=== PATIENT | female | born 1975 | race Caucasian/White ===

== ENCOUNTER → 2016-10-21 | Outpatient (CLI) | payer MEDICARE, MEDICAID ==
[~2016-10-21] MED LIST: ATOR1TAB19 PO; CHEL50TA PO; CICL0.7739 TOP; CLEO150C PO; FERR325T PO; FERR325T3 PO; FOLI1TAB2 PO; HYDR25TAB PO; LEVO100T5 PO; POTA10PO PO; VITA-130 PO; VITMTA PO; ZINC220C3 PO
== END ==
LOC: M PT 13:03
PROVIDERS: ATTEND General Practice
DX: Q05.9 Spina bifida, unspecified (principal)
CPT/HCPCS: 97161; G8978; G8979; G8980

== ENCOUNTER → 2016-10-30 | Outpatient (CLI) | payer MEDICARE, MEDICAID ==
--- NOTE | 2016-10-30 15:25 | REP ---
MRI study of the pelvis without and with IV gadolinium: History: Stage III pressure ulcer at the sacrum. Gadolinium enhancement dose: 14.2 ml of intravenous ProHance is administered. Technique: Axial, coronal, and sagittal imaging planes are utilized. T1 and T2-weighted scans are obtained with and without fat saturation. Pre and postcontrast enhanced images are included. MRI findings: There is scarring, soft tissue deficit and indentation, and some subcutaneous contrast enhancement in the soft tissues adjacent to and overlying the ischium on the left side. A large decubitus ulcer was visible on MRI study of the left hip September 14, 2005 in this location. There is no evidence of active osteomyelitis in the ischium or left hemipelvis. There is evidence of bilateral congenital hip dysplasia and pseudarthrosis. A levoconvex lumbar scoliotic curvature is seen. Sagittal images demonstrate vaginal, uterine, urinary bladder, and rectal prolapse. There is enhancement of the prolapsed vaginal and rectal soft tissues. Sagittal images demonstrate sacral kyphosis. Cortical and medullary bone signal intensity are normal in the sacrum and coccyx however. No retro sacral or presacral mass or abscess is seen. No evidence of sacral osteomyelitis. There is some retro sacral soft tissue edema. There is soft tissue edema in the retro sacral soft tissues extending over the right gluteal region as well. There is an area of granulation tissue in the skin and subcutaneous tissue dorsally overlying the coccyx. This area measures approximately 7.7 cm in medial to lateral by 5.0 cm cranial to caudal. It displays some contrast enhancement. There is contrast enhancement just distal to the tip of the coccyx as well. It is difficult to assess the signal intensity in the tip of the coccyx but I suspect some erosive change in the distal most coccygeal tip. Impression: Evidence of an old ischial decubitus on the left, improved. Granulation tissue and contrast enhancement in the dorsal retro sacral and coccygeal soft tissues. Suspect some bony erosive change implying osteomyelitis at the tip of the coccyx. No drainable fluid collection seen in the soft tissues. Soft tissue edema in the subcutaneous space. Incidental findings of uterine, bladder, vaginal and rectal prolapse as well as congenital hip dysplasia bilaterally. Scoliosis again seen. Signed by Emir Chang MD 10/30/2016 03:33 P
== END ==
LOC: M RAD 12:03
PROVIDERS: ATTEND Surgery
DX: L89.153 Pressure ulcer of sacral region, stage 3 (principal)
CPT/HCPCS: 72197; A9576

== ENCOUNTER → 2016-12-02 | Outpatient (REF) | payer MEDICARE, MEDICAID ==
[2016-12-02 15:38] LABS: ALBUMIN 3.3 GM/DL (3.2-5.2); ALBUMIN/GLOBULIN RATIO 0.75 (1.00-1.93); ALKALINE PHOSPHATASE 105 U/L (45-117); ALT/SGPT 16 U/L (12-78); ANION GAP 11 MEQ/L (8-16); AST/SGOT 9 U/L (15-37); BILIRUBIN,TOTAL 0.4 MG/DL (0.2-1.0); BLOOD UREA NITROGEN 8 MG/DL (7-18); CALCIUM LEVEL 8.9 MG/DL (8.5-10.1); CARBON DIOXIDE LEVEL 26 MEQ/L (21-32); CHLORIDE LEVEL 105 MEQ/L (98-107); CREATININE FOR GFR 0.44 MG/DL (0.55-1.02); GLOMERULAR FILTRATION RATE > 60.0 (>58); GLUCOSE, FASTING 86 MG/DL (70-105); POTASSIUM SERUM 3.9 MEQ/L (3.5-5.1); SODIUM LEVEL 142 MEQ/L (136-145); TOTAL PROTEIN 7.7 GM/DL (6.4-8.2)
[2016-12-02 15:44] LABS: BASO % 0.2 % (0.0-1.0); EOS # 0.2 K/mm3 (0.0-0.50); EOS % 1.7 % (0.0-3.0); LARGE UNSTAINED CELL # 0.1 K/mm3 (0.0-0.4); LARGE UNSTAINED CELL % 1.1 % (0.0-4.0); LYMPH # 1.7 K/mm3 (1.5-4.5); LYMPH % 17.7 % (24.0-44.0); MEAN CORPUSCULAR HEMOGLOBIN 18.3 pg (27.0-33.0); MEAN CORPUSCULAR HGB CONC 27.2 g/dl (32.0-36.5); MEAN CORPUSCULAR VOLUME 67.2 fl (80.0-96.0); MONO # 0.3 K/mm3 (0.0-0.8); MONO % 3.3 % (0.0-5.0); NEUTROPHILS # 7.1 K/mm3 (1.8-7.7); NEUTROPHILS % 75.9 % (36.0-66.0); PLATELET COUNT, AUTOMATED 517 k/mm3 (150-450); RED CELL DISTRIBUTION WIDTH 18.2 % (11.5-14.5); WHITE BLOOD COUNT 9.4 K/mm3 (4.0-10.0)
[2016-12-02 15:56] LABS: ADD MORPHOLOGY? YES
[2016-12-02 15:57] LABS: ANISOCYTOSIS 2+; HYPOCHROMASIA 3+; MICROCYTOSIS 3+
[2016-12-02 20:07] LABS: ERYTHROCYTE SEDIMENTATION RATE 73 mm/hr (0-20)
[2016-12-03 11:29] LABS: FERRITIN 15 NG/ML (8-252); PERCENT SATURATION 8.5 % (13.2-37.4); TOTAL IRON BINDING CAPACITY 386 UG/DL (250-450)
== END ==
LOC: M SFHCPLAZ 12:34
PROVIDERS: ATTEND Internal Medicine Infectious Disease
DX: M86.18 Other acute osteomyelitis, other site (principal); Q05.9 Spina bifida, unspecified; L89.154 Pressure ulcer of sacral region, stage 4; L89.323 Pressure ulcer of left buttock, stage 3; G82.21 Paraplegia, complete; L97.512 Non-pressure chronic ulcer of other part of right foot with fat layer exposed; A49.02 Methicillin resistant Staphylococcus aureus infection, unspecified site; Z79.899 Other long term (current) drug therapy
CPT/HCPCS: 36415; 80053; 82728; 83550; 85025; 85652; 86140; 87070; 87077; 87186; 87205; G0463

== ENCOUNTER 2016-12-04 13:50 | Outpatient (CLI) | payer MEDICARE, MEDICAID ==
[~2016-12-04] VITALS: Ht 137.2 cm; Wt 70.9 kg
[~2016-12-04 13:50] MED LIST changes: +CEFTAROLINE FOSAMIL 600 MG in D5W MINI-BAG PLUS 50 ML IV ONE; +SODIUM CHLORIDE 0.9% INJ 10 ML SYR IV PRN
[2016-12-04] MEDS ORDERED: SODIUM CHLORIDE 0.9% INJ 10 ML SYR IV SCH (18:00)
== END 2016-12-04 15:10 | disposition home or self-care (01) ==
LOC: M INFU 13:50
PROVIDERS: ATTEND Internal Medicine Infectious Disease
DX: M86.9 Osteomyelitis, unspecified (principal); Z88.2 Allergy status to sulfonamides; Z88.8 Allergy status to other drugs, medicaments and biological substances; Z79.899 Other long term (current) drug therapy

== ENCOUNTER → 2016-12-04 | Outpatient (CLI) | payer MEDICARE, MEDICAID ==
--- NOTE | 2016-12-04 18:23 | REP ---
SINGLE LUMEN PICC LINE INSERTION: Patient was referred for a single lumen PICC line insertion. Informed consent was obtained. Under sterile conditions and after satisfactory administration of local anesthesia, using guidance from the [facility] ultrasound device, access to the right brachial vein is obtained. Over the wire a single lumen PICC line is inserted and the tip is positioned in the superior vena cava. 0.1 minutes of fluoroscopic time utilized to confirm PICC line tip placement in the superior vena cava. Hemostasis was obtained. There are no immediate complications. Signed by Elmer Godinez MD 12/04/2016 06:33 P
== END ==
LOC: M RADPRO 10:29
PROVIDERS: ATTEND Internal Medicine Infectious Disease
DX: M86.18 Other acute osteomyelitis, other site (principal); Z88.2 Allergy status to sulfonamides

== ENCOUNTER → 2016-12-21 | Outpatient (REF) | payer MEDICARE, MEDICAID ==
[~2016-12-21] MED LIST changes: -CEFTAROLINE FOSAMIL 600 MG in D5W MINI-BAG PLUS 50 ML IV ONE; -SODIUM CHLORIDE 0.9% INJ 10 ML SYR IV PRN
[2016-12-21 16:02] LABS: MEAN CORPUSCULAR HEMOGLOBIN 19.2 pg (27.0-33.0); MEAN CORPUSCULAR HGB CONC 28.3 g/dl (32.0-36.5); MEAN CORPUSCULAR VOLUME 67.8 fl (80.0-96.0); PLATELET COUNT, AUTOMATED 382 k/mm3 (150-450); RED CELL DISTRIBUTION WIDTH 17.9 % (11.5-14.5); WHITE BLOOD COUNT 5.2 K/mm3 (4.0-10.0)
[2016-12-21 16:37] LABS: ERYTHROCYTE SEDIMENTATION RATE 98 mm/hr (0-20)
[2016-12-21 21:07] LABS: BASOPHILS 1 % (0-4); EOSINOPHILS 2 % (0-5)
[2016-12-21 21:08] LABS: ANISOCYTOSIS 1+; HYPOCHROMASIA 2+; MICROCYTOSIS 3+; OVALOCYTES 1+; POIKILOCYTOSIS 1+
== END ==
LOC: M SHH 15:37
PROVIDERS: ATTEND Internal Medicine Infectious Disease
DX: D64.9 Anemia, unspecified (principal)

== ENCOUNTER → 2016-12-28 | Outpatient (REF) | payer MEDICARE, MEDICAID ==
[2016-12-28 16:10] LABS: BASO % 0.1 % (0.0-1.0); EOS # 0.2 K/mm3 (0.0-0.50); LARGE UNSTAINED CELL # 0.1 K/mm3 (0.0-0.4); LARGE UNSTAINED CELL % 1.1 % (0.0-4.0); LYMPH # 1.4 K/mm3 (1.5-4.5); LYMPH % 21.9 % (24.0-44.0); MEAN CORPUSCULAR HEMOGLOBIN 19.4 pg (27.0-33.0); MEAN CORPUSCULAR HGB CONC 28.7 g/dl (32.0-36.5); MEAN CORPUSCULAR VOLUME 67.6 fl (80.0-96.0); MONO # 0.4 K/mm3 (0.0-0.8); NEUTROPHILS # 3.9 K/mm3 (1.8-7.7); NEUTROPHILS % 65.9 % (36.0-66.0); PLATELET COUNT, AUTOMATED 500 k/mm3 (150-450); RED CELL DISTRIBUTION WIDTH 17.3 % (11.5-14.5); WHITE BLOOD COUNT 5.9 K/mm3 (4.0-10.0)
[2016-12-28 16:16] LABS: ADD MORPHOLOGY? YES
[2016-12-28 22:37] LABS: ANISOCYTOSIS 2+; HYPOCHROMASIA 2+; MICROCYTOSIS 3+
[2016-12-28 22:53] LABS: ERYTHROCYTE SEDIMENTATION RATE 72 mm/hr (0-20)
== END ==
LOC: M LAB REF 15:48
PROVIDERS: ATTEND Internal Medicine Infectious Disease
DX: D64.9 Anemia, unspecified (principal)

== ENCOUNTER → 2017-01-04 | Outpatient (REF) | payer MEDICARE, MEDICAID ==
[2017-01-04 16:10] LABS: BASO % 0.2 % (0.0-1.0); EOS # 0.1 K/mm3 (0.0-0.50); EOS % 2.7 % (0.0-3.0); LARGE UNSTAINED CELL # 0.1 K/mm3 (0.0-0.4); LARGE UNSTAINED CELL % 1.7 % (0.0-4.0); LYMPH % 20.6 % (24.0-44.0); MEAN CORPUSCULAR HEMOGLOBIN 19.5 pg (27.0-33.0); MEAN CORPUSCULAR HGB CONC 28.9 g/dl (32.0-36.5); MEAN CORPUSCULAR VOLUME 67.4 fl (80.0-96.0); MONO # 0.3 K/mm3 (0.0-0.8); MONO % 7.1 % (0.0-5.0); NEUTROPHILS # 3.2 K/mm3 (1.8-7.7); NEUTROPHILS % 67.7 % (36.0-66.0); PLATELET COUNT, AUTOMATED 452 k/mm3 (150-450); RED CELL DISTRIBUTION WIDTH 16.8 % (11.5-14.5); WHITE BLOOD COUNT 4.7 K/mm3 (4.0-10.0)
[2017-01-04 16:43] LABS: ADD MORPHOLOGY? YES
[2017-01-04 18:30] LABS: ERYTHROCYTE SEDIMENTATION RATE 61 mm/hr (0-20)
[2017-01-04 21:50] LABS: ANISOCYTOSIS 2+; HYPOCHROMASIA 2+; MICROCYTOSIS 3+
== END ==
LOC: M SHH 15:37
PROVIDERS: ATTEND Internal Medicine Infectious Disease
DX: D64.9 Anemia, unspecified (principal)

== ENCOUNTER → 2017-01-11 | Outpatient (REF) | payer MEDICARE, MEDICAID ==
[2017-01-11 15:56] LABS: MEAN CORPUSCULAR HGB CONC 28.6 g/dl (32.0-36.5); MEAN CORPUSCULAR VOLUME 66.4 fl (80.0-96.0); PLATELET COUNT, AUTOMATED 437 k/mm3 (150-450); WHITE BLOOD COUNT 2.7 K/mm3 (4.0-10.0)
[2017-01-11 22:01] LABS: ERYTHROCYTE SEDIMENTATION RATE 63 mm/hr (0-20)
[2017-01-11 22:35] LABS: BANDS 1 % (< 11); EOSINOPHILS 6 % (0-5); MICROCYTOSIS 3+
[2017-01-11 22:36] LABS: ANISOCYTOSIS 1+; HYPOCHROMASIA 2+; OVALOCYTES 2+; POIKILOCYTOSIS 1+
[2017-01-11 22:37] LABS: POLYCHROMASIA 1+
== END ==
LOC: M SFHCPLAZ 15:30
PROVIDERS: ATTEND Internal Medicine Infectious Disease
DX: M86.18 Other acute osteomyelitis, other site (principal); D64.9 Anemia, unspecified

== ENCOUNTER → 2017-01-14 | Outpatient (REF) | payer MEDICARE, MEDICAID ==
[2017-01-14 17:05] LABS: MEAN CORPUSCULAR HEMOGLOBIN 18.9 pg (27.0-33.0); MEAN CORPUSCULAR HGB CONC 28.2 g/dl (32.0-36.5); MEAN CORPUSCULAR VOLUME 66.9 fl (80.0-96.0); PLATELET COUNT, AUTOMATED 361 k/mm3 (150-450); RED CELL DISTRIBUTION WIDTH 15.9 % (11.5-14.5); WHITE BLOOD COUNT 2.2 K/mm3 (4.0-10.0)
[2017-01-14 18:03] LABS: BANDS 2 % (< 11); BASOPHILS 1 % (0-4); EOSINOPHILS 5 % (0-5); GIANT PLATELETS 1+; HYPOCHROMASIA 2+; MICROCYTOSIS 3+; OVALOCYTES 2+; POIKILOCYTOSIS 1+
[2017-01-14 18:04] LABS: ANISOCYTOSIS 1+; POLYCHROMASIA 1+; TARGET CELLS 1+
[2017-01-14 18:07] LABS: TOXIC GRANULATION 1+
[2017-01-14 18:11] LABS: ERYTHROCYTE SEDIMENTATION RATE 65 mm/hr (0-20)
== END ==
LOC: M LAB REF 16:07
PROVIDERS: ATTEND Internal Medicine Infectious Disease
DX: D64.9 Anemia, unspecified (principal)

== ENCOUNTER → 2017-02-22 | Outpatient (REF) | payer MEDICARE, MEDICAID ==
[2017-02-22 16:11] LABS: ADD MORPHOLOGY? YES; BASO % 0.6 % (0.0-1.0); EOS # 0.2 K/mm3 (0.0-0.50); EOS % 2.8 % (0.0-3.0); LARGE UNSTAINED CELL # 0.1 K/mm3 (0.0-0.4); LARGE UNSTAINED CELL % 0.8 % (0.0-4.0); LYMPH # 1.9 K/mm3 (1.5-4.5); LYMPH % 20.3 % (24.0-44.0); MEAN CORPUSCULAR HEMOGLOBIN 18.7 pg (27.0-33.0); MEAN CORPUSCULAR HGB CONC 28.4 g/dl (32.0-36.5); MEAN CORPUSCULAR VOLUME 65.9 fl (80.0-96.0); MONO # 0.4 K/mm3 (0.0-0.8); MONO % 4.2 % (0.0-5.0); NEUTROPHILS # 6.3 K/mm3 (1.8-7.7); NEUTROPHILS % 71.3 % (36.0-66.0); PLATELET COUNT, AUTOMATED 624 k/mm3 (150-450); RED CELL DISTRIBUTION WIDTH 16.5 % (11.5-14.5); WHITE BLOOD COUNT 8.8 K/mm3 (4.0-10.0)
[2017-02-22 16:17] LABS: ANION GAP 7 MEQ/L (8-16); BLOOD UREA NITROGEN 8 MG/DL (7-18); CALCIUM LEVEL 9.2 MG/DL (8.5-10.1); CARBON DIOXIDE LEVEL 30 MEQ/L (21-32); CHLORIDE LEVEL 104 MEQ/L (98-107); CREATININE FOR GFR 0.43 MG/DL (0.55-1.02); GLOMERULAR FILTRATION RATE > 60.0 (>58); GLUCOSE, FASTING 94 MG/DL (70-105); POTASSIUM SERUM 4.3 MEQ/L (3.5-5.1); SODIUM LEVEL 141 MEQ/L (136-145)
[2017-02-22 16:29] LABS: ERYTHROCYTE SEDIMENTATION RATE 69 mm/hr (0-20)
[2017-02-22 20:13] LABS: ANISOCYTOSIS 1+
[2017-02-22 20:14] LABS: HYPOCHROMASIA 3+; MICROCYTOSIS 3+; OVALOCYTES 1+
== END ==
LOC: M SFHCPLAZ 12:37
PROVIDERS: ATTEND Internal Medicine Infectious Disease
DX: M86.18 Other acute osteomyelitis, other site (principal); D50.8 Other iron deficiency anemias
CPT/HCPCS: 36415; 80048; 85025; 85652; 86140; G0463

== ENCOUNTER 2017-12-14 13:17 | Outpatient (RCR) | payer MEDICARE, MEDICAID | END 2017-12-15 | disposition home or self-care (01) | LOC: M PT 13:17 | DX: Z51.89 Encounter for other specified aftercare (principal); L89.153 Pressure ulcer of sacral region, stage 3 | CPT/HCPCS: 97163 ==

== ENCOUNTER → 2017-12-15 | Outpatient (REF) | payer MEDICARE, MEDICAID ==
[2017-12-15 14:36] LABS: FERRITIN 18 NG/ML (8-252); IRON (FE) 12 UG/DL (50-170); PERCENT SATURATION 3.6 % (13.2-45.0); REASON FOR REVIEW OTHER; SLIDE REVIEW Report; SOURCE PERIPHERAL SMEAR; TOTAL IRON BINDING CAPACITY 331 UG/DL (250-450)
[2017-12-17 00:07] LABS: SOLUBLE TRANSFERRIN RECEPTOR 55.6 nmol/L (12.2-27.3)
== END ==
LOC: M LAB REF 13:52
DX: D50.9 Iron deficiency anemia, unspecified (principal)
CPT/HCPCS: 83550

== ENCOUNTER 2017-12-22 15:23 | Outpatient (RCR) | payer MEDICARE, MEDICAID | END 2018-01-15 | LOC: M PT 15:23 | DX: Z51.89 Encounter for other specified aftercare (principal); I89.0 Lymphedema, not elsewhere classified | CPT/HCPCS: 97140 ==

== ENCOUNTER 2018-01-17 11:37 | Outpatient (RCR) | payer MEDICARE, MEDICAID | END 2018-02-14 | LOC: M PT 11:37 | DX: Z51.89 Encounter for other specified aftercare (principal); L89.153 Pressure ulcer of sacral region, stage 3 | CPT/HCPCS: 97140 ==

== ENCOUNTER → 2018-02-02 | Outpatient (CLI) | payer MEDICARE, MEDICAID ==
[2018-02-04 14:19] LABS: TISSUE TRANSGLUTAMINASE IgA <2 U/mL (0-3)
== END ==
LOC: M LAB 14:37
DX: D50.9 Iron deficiency anemia, unspecified (principal)
CPT/HCPCS: 82784

== ENCOUNTER 2018-02-16 15:23 | Outpatient (RCR) | payer MEDICARE, MEDICAID | END 2018-03-17 | LOC: M PT 15:23 | DX: Z51.89 Encounter for other specified aftercare (principal); I89.0 Lymphedema, not elsewhere classified | CPT/HCPCS: 97140 ==

== ENCOUNTER 2018-03-04 11:31 | Day surgery (SDC) | payer MEDICARE, MEDICAID ==
[2018-03-04] MEDS: NS 1,000 ML IV (11:30)
[2018-03-04] MEDS ORDERED: fentaNYL 100 MCG/2 ML INJECTION (J3010) As Ordered (12:53)
[2018-03-04] MEDS ORDERED: LIDOCAINE 2% INJ 100 MG/5 ML SDV (FOR ANES.) As Ordered (12:54)
[2018-03-04] MEDS ORDERED: PROPOFOL 500 MG/50 ML VIAL As Ordered (12:56)
== END 2018-03-04 15:05 | disposition home or self-care (01) ==
LOC: M OPP 11:31
DX: D50.9 Iron deficiency anemia, unspecified (principal); N81.9 Female genital prolapse, unspecified; I10 Essential (primary) hypertension; E78.5 Hyperlipidemia, unspecified; E03.9 Hypothyroidism, unspecified; G80.9 Cerebral palsy, unspecified; G31.84 Mild cognitive impairment of uncertain or unknown etiology; G47.8 Other sleep disorders; R32 Unspecified urinary incontinence; Q05.9 Spina bifida, unspecified; L89.153 Pressure ulcer of sacral region, stage 3; L89.899 Pressure ulcer of other site, unspecified stage; Z99.3 Dependence on wheelchair; Z88.2 Allergy status to sulfonamides; Z79.899 Other long term (current) drug therapy; Z80.3 Family history of malignant neoplasm of breast
CPT/HCPCS: 45378

== ENCOUNTER → 2018-03-09 | Outpatient (CLI) | payer MEDICARE, MEDICAID ==
[2018-03-09 13:59] LABS: BASO % 0.2 % (0.0-1.0); EOS # 0.3 10^3/uL (0.0-0.50); EOS % 2.5 % (0.0-3.0); HEMATOCRIT 34.1 % (36.0-47.0); HEMOGLOBIN 10.3 g/dl (12.0-15.5); IMMATURE GRANULOCYTE % 0.4 % (0-3.0); LYMPH # 1.7 10^3/uL (1.5-4.5); LYMPH % 15.4 % (24.0-44.0); MEAN CORPUSCULAR HEMOGLOBIN 22.7 pg (27.0-33.0); MEAN CORPUSCULAR HGB CONC 30.2 g/dl (32.0-36.5); MEAN CORPUSCULAR VOLUME 75.3 fl (80.0-96.0); MONO # 0.4 10^3/uL (0.0-0.8); MONO % 3.8 % (0.0-5.0); NEUTROPHILS # 8.4 10^3/uL (1.8-7.7); NEUTROPHILS % 77.7 % (36.0-66.0); PLATELET COUNT, AUTOMATED 407 10^3/uL (150-450); RED BLOOD COUNT 4.53 10^6/uL (4.00-5.40); WHITE BLOOD COUNT 10.8 10^3/uL (4.0-10.0)
[2018-03-09 14:42] LABS: ALBUMIN 3.1 GM/DL (3.2-5.2); ALBUMIN/GLOBULIN RATIO 0.74 (1.00-1.93); ALKALINE PHOSPHATASE 110 U/L (45-117); ALT/SGPT 13 U/L (12-78); ANION GAP 8 MEQ/L (8-16); AST/SGOT 7 U/L (7-37); BILIRUBIN,TOTAL 0.1 MG/DL (0.2-1.0); BLOOD UREA NITROGEN 6 MG/DL (7-18); CALCIUM LEVEL 8.9 MG/DL (8.5-10.1); CARBON DIOXIDE LEVEL 27 MEQ/L (21-32); CHLORIDE LEVEL 107 MEQ/L (98-107); CREATININE FOR GFR 0.42 MG/DL (0.55-1.30); FERRITIN 60 NG/ML (8-252); GLOMERULAR FILTRATION RATE > 60.0 (>58); GLUCOSE, FASTING 132 MG/DL (70-100); IRON (FE) 18 UG/DL (50-170); POTASSIUM SERUM 3.5 MEQ/L (3.5-5.1); SODIUM LEVEL 142 MEQ/L (136-145); TOTAL IRON BINDING CAPACITY 258 UG/DL (250-450); TOTAL PROTEIN 7.3 GM/DL (6.4-8.2)
[2018-03-11 08:06] LABS: CERULOPLASMIN 36.7 mg/dL (19.0-39.0); COPPER PLASMA 154 ug/dL (72-166)
[2018-03-11 08:06] LABS: SOLUBLE TRANSFERRIN RECEPTOR 28.1 nmol/L (12.2-27.3)
== END ==
LOC: M LAB 13:25
DX: D50.9 Iron deficiency anemia, unspecified (principal)
CPT/HCPCS: 82525

== ENCOUNTER 2018-03-18 15:19 | Outpatient (RCR) | payer MEDICARE, MEDICAID | END 2018-04-16 | LOC: M PT 03-21 15:17 | DX: Z51.89 Encounter for other specified aftercare (principal); L89.153 Pressure ulcer of sacral region, stage 3 | CPT/HCPCS: 97140 ==

== ENCOUNTER → 2018-04-06 | Outpatient (CLI) | payer MEDICARE, MEDICAID ==
[~2018-04-06] MED LIST changes: -ATOR1TAB19 PO; -CHEL50TA PO; -CICL0.7739 TOP; -CLEO150C PO; -FERR325T PO; -FERR325T3 PO; -FOLI1TAB2 PO; +GLUCAGON FOR INJ 1 MG VIAL (J1610) As Ordered; -HYDR25TAB PO; +ISOVUE-370 76% 100ML VIAL (Q9967) As Ordered; -LEVO100T5 PO; -POTA10PO PO; -VITA-130 PO; -VITMTA PO; +VoLumen 0.1% SUSPENSION 450ML BOTTLE As Ordered; -ZINC220C3 PO
== END ==
LOC: M RAD 08:08
DX: D50.9 Iron deficiency anemia, unspecified (principal)
CPT/HCPCS: Q9967

== ENCOUNTER 2018-04-18 14:09 | Outpatient (RCR) | payer MEDICARE, MEDICAID | END 2018-05-17 | LOC: M PT 14:09 | DX: Z51.89 Encounter for other specified aftercare (principal); L89.153 Pressure ulcer of sacral region, stage 3 | CPT/HCPCS: 97140 ==

== ENCOUNTER → 2018-04-27 | Outpatient (REF) | payer MEDICARE, MEDICAID ==
[2018-04-27 14:21] LABS: FERRITIN 22 NG/ML (8-252); IRON (FE) 27 UG/DL (50-170); PERCENT SATURATION 7.5 % (13.2-45.0); TOTAL IRON BINDING CAPACITY 361 UG/DL (250-450)
== END ==
LOC: M LAB REF 13:53
DX: D50.9 Iron deficiency anemia, unspecified (principal)
CPT/HCPCS: 83550

== ENCOUNTER 2018-05-18 12:40 | Outpatient (RCR) | payer MEDICARE, MEDICAID | END 2018-06-17 | LOC: M PT 05-23 11:38 | DX: Z51.89 Encounter for other specified aftercare (principal); L89.153 Pressure ulcer of sacral region, stage 3; I89.0 Lymphedema, not elsewhere classified | CPT/HCPCS: 97140 ==

== ENCOUNTER 2018-06-22 11:54 | Outpatient (RCR) | payer MEDICARE, MEDICAID | END 2018-07-17 | LOC: M PT 11:54 | DX: Z51.89 Encounter for other specified aftercare (principal); Q05.9 Spina bifida, unspecified | CPT/HCPCS: 97140 ==

== ENCOUNTER → 2018-07-11 | Outpatient (CLI) | payer MEDICARE, MEDICAID | LOC: M PT 13:05 | DX: Q05.9 Spina bifida, unspecified (principal) | CPT/HCPCS: 97163 ==

== ENCOUNTER 2018-07-18 12:50 | Outpatient (RCR) | payer MEDICARE, MEDICAID | END 2018-08-17 | LOC: M PT 07-20 12:22 | DX: L89.153 Pressure ulcer of sacral region, stage 3 (principal) | CPT/HCPCS: 97140 ==

== ENCOUNTER 2018-11-16 12:45 | Outpatient (RCR) | payer MEDICARE, MEDICAID ==
[~2018-11-16 12:45] MED LIST changes: +ATOR1TAB19 PO; +CHEL50TA PO; +CICL0.7739 TOP; +CLEO150C PO; +FERR1TAB8 PO; +FERR325T3 PO; +FOLI1TAB11 PO; -GLUCAGON FOR INJ 1 MG VIAL (J1610) As Ordered; +HYDR25TAB PO; -ISOVUE-370 76% 100ML VIAL (Q9967) As Ordered; +LEVO100T5 PO; +LEVO150T7; +POTA10PO PO; +VITA500T PO; +VITMTA PO; -VoLumen 0.1% SUSPENSION 450ML BOTTLE As Ordered; +ZINC220C3 PO
== END 2018-11-17 ==
LOC: M PT 12:45
PROVIDERS: ATTEND Surgery
DX: I89.0 Lymphedema, not elsewhere classified (principal)

== ENCOUNTER 2018-12-14 10:20 | Outpatient (RCR) | payer MEDICARE, MEDICAID ==
[2018-12-15] MEDS ORDERED: ZINC220CA PO (17:51)
[2018-12-15] MEDS ORDERED: LEVO175T2 PO (17:51)
[2018-12-15] MEDS ORDERED: HYDR25TAB PO (17:51)
== END 2018-12-15 ==
LOC: M PT 10:20
PROVIDERS: ATTEND Surgery
DX: I89.0 Lymphedema, not elsewhere classified (principal)

== ENCOUNTER 2018-12-15 15:54 | Inpatient (IN) | payer MEDICARE, MEDICAID ==
[~2018-12-15] VITALS: Ht 154.9 cm; Wt 65.2 kg
[~2018-12-15 15:54] MED LIST changes: -LEVO175T2 PO; -ZINC220CA PO
[2018-12-15] MEDS ORDERED: PIPERACILLIN/TAZOBACTAM SOD 3.375 GM in D5W MINI-BAG PLUS 50 ML IV ONE (17:00)
[2018-12-15] MEDS ORDERED: VANCOMYCIN HCL 1,000 MG, VIAL MATE ADAPTER 1 EACH in D5W 250 ML IV ONE (17:00)
[2018-12-15 17:08] LABS: BASO % 0.2 % (0.0-1.0); EOS # 0.1 10^3/uL (0.0-0.50); EOS % 0.5 % (0.0-3.0); HEMATOCRIT 34.4 % (36.0-47.0); LYMPH % 18.6 % (24.0-44.0); MEAN CORPUSCULAR HEMOGLOBIN 22.6 pg (27.0-33.0); MEAN CORPUSCULAR HGB CONC 29.1 g/dl (32.0-36.5); MEAN CORPUSCULAR VOLUME 77.7 fl (80.0-96.0); MONO # 0.4 10^3/uL (0.0-0.8); MONO % 3.7 % (0.0-5.0); NEUTROPHILS # 8.1 10^3/uL (1.8-7.7); NEUTROPHILS % 76.3 % (36.0-66.0); PLATELET COUNT, AUTOMATED 747 10^3/uL (150-450); RED BLOOD COUNT 4.43 10^6/uL (4.00-5.40); WHITE BLOOD COUNT 10.6 10^3/uL (4.0-10.0)
--- NOTE | 2018-12-15 17:28 | REP ---
Clinical: Infection. Technique: AP, lateral, bilateral oblique views of the right ankle. Findings: Acute comminuted fractures of the distal tibial diaphysis and fibular metadiaphysis are appreciated. Underlying osteopenia and grossly deformed appearance to the ankle/midfoot is consistent with old trauma. Diffuse soft tissue swelling is appreciated. Osteomyelitis cannot definitively be excluded. Impression: 1. Acute comminuted fractures involving distal tibia and fibula. 2. Diffuse distortion of the normal bony architecture through the ankle and midfoot with osteopenia and overlying soft tissue swelling is consistent with old injuries and osteomyelitis cannot be excluded. Electronically Signed by Amos Kyle MD 12/15/2018 05:20 P
[2018-12-15 17:32] LABS: ALBUMIN 2.2 GM/DL (3.2-5.2); ALT/SGPT 23 U/L (12-78); BILIRUBIN,DIRECT 0.2 MG/DL (0.0-0.2); BILIRUBIN,TOTAL 0.4 MG/DL (0.2-1.0); BLOOD UREA NITROGEN 3 MG/DL (7-18); C REACTIVE PROTEIN QUANTITATIV 5.56 MG/DL (0.00-0.30); CALCIUM LEVEL 8.4 MG/DL (8.5-10.1); CARBON DIOXIDE LEVEL 25 MEQ/L (21-32); CHLORIDE LEVEL 102 MEQ/L (98-107); CREATININE FOR GFR 0.52 MG/DL (0.55-1.30); GLOMERULAR FILTRATION RATE > 60.0 (>58); GLUCOSE, FASTING 120 MG/DL (70-100); POTASSIUM SERUM 3.5 MEQ/L (3.5-5.1); SODIUM LEVEL 137 MEQ/L (136-145); TOTAL PROTEIN 7.9 GM/DL (6.4-8.2)
[2018-12-15 17:36] LABS: ERYTHROCYTE SEDIMENTATION RATE 116 mm/hr (0-20)
[2018-12-15] MEDS ORDERED: NS IV ONE (17:45)
[2018-12-15] MEDS ORDERED: DILUENT IV ONE (17:45)
[2018-12-15] MEDS ORDERED: HYDR25TAB PO (17:51)
[2018-12-15] MEDS ORDERED: ZINC220CA PO (17:51)
[2018-12-15] MEDS ORDERED: LEVO175T2 PO (17:51)
--- NOTE | 2018-12-15 21:29 | CR.PDOC ---
General Date of Consultation: Dec 15, 2018 Referring Provider: KATHLEEN MURRAY PA-C. Attending Physician: PAMELA MOSES MD Consultation REASON FOR CONSULTATION/CHIEF COMPLAINT: R tibia fracture, open wounds. HISTORY OF PRESENT ILLNESS: Patient is a 43 year old female wheelchair bound with spina bifida, but independent in all ADLs, who presented to the ER today secondary to an infected wound on the lateral aspect of the R distal leg being managed by Dr. Jacobo in wound care. Patient is insensate below the waist. Had local I&D and a fortunato drain placed and she was sent to the ER for further evaluation of her wounds. She had a radiograph that demonstrated evidence of a distal third tibial fracture. Patient denies any falls or other potential mechanism of injury. She is assisted into a vehicle by her sister and brother in law on a regular basis who were present for the exam. She has a wound on the distal foot that has been managed for weeks. The wound on the lateral aspect of the leg has been present for about a week. She denies any associated fevers, chills, night sweats, or other constitutional symptoms at home. No other complaints. ALLERGIES: Please see below. HOME MEDICATIONS: Please see below. PAST MEDICAL HISTORY: 1. Spina bifida per HPI- Insensate below T12 level. 2. Hypertension. 3. Hypothyroidism 4. Hyperlipidemia PAST SURGICAL HISTORY: 1.Non contributory FAMILY HISTORY: non contributory SOCIAL HISTORY: Lives with father. Has a home health aide who comes to home 2x/week. Performs all ADLs. Can transfer from bed to wheelchair independently. Does not smoke. Drinks alcohol on rare occasions. Unemployed. REVIEW OF SYSTEMS: CONSTITUTIONAL: No fevers, chills, or night sweats. CARDIOVASCULAR: No chest pain or palpitations. RESPIRATORY: No cough, wheeze, shortness of breath. GENITOURINARY: No recent UTIs. MUSCULOSKELETAL: RLE wounds as per HPI. GASTROINTESTINAL: No nausea, vomiting, diarrhea. SKIN: Multiple wounds on RLE per HPI. NEUROLOGICAL: Spina bifida per HPI. ENDOCRINE: Hypothyroidism per PMH. ALLERGIC/IMMUNOLOGIC: + Recent adverse reaction to antibiotic given for RLE wound. Patient does not remember name. PHYSICAL EXAMINATION: VITAL SIGNS: Please see below. GENERAL APPEARANCE: Well nourished female, no acute distress. HEENT: Normocephalic, atraumatic. RESPIRATORY: Non labored breathing. CARDIOVASCULAR: RRR. DP/PT pulses not palpable secondary to diffuse soft tissue swelling. EXTREMITIES: RLE Atrophy with flexion contractures of residual foot, ankle, knee, and hip. There is a large wound on the distal aspect of the RLE residual limb with a healthy appearing granulation bed. There are 2 open wounds on the lateral aspect of the leg that are connected with a fortunato drain. There is diffuse lymphedema and cellulitis from the mid tibia distally. Patient is insensate and has no voluntary motion of the lower extremity. NEUROLOGICAL: Insensate in BLE below the waist. Completely insensate in BLE. Radiographs: Plain radiographs of the R Ankle demonstrate a displaced distal third spiral tibia fracture. The tibiotalat joint is ankylosed. There is diffuse disuse osteopenia. There is no evidence of local periosteal reaction of bony c allus. LABORATORY DATA: Please see below. ASSESSMENT: 43 y/o female with spina bifida, wheelchair bound, and insensate to BLE with multiple open wounds on the lateral aspect of the RLE in various stages of healing and a distal third tibia fracture. This could represent an open fracture of unknown chronicity, versus a pressure wound that progressed to an abscess that was managed with local wound care with surrounding cellulitis. There is possible underlying osteomyelitis. PLAN/Recommendations: I had a long conversation with the patient regarding the nature of her wounds and the potential treatment options. Given that she is chronically infected, has multiple open wounds, is non ambulatory, and insensate, the risks of surgical stabilization of her tibia fracture far outweigh the benefits, and is not recommended. However, given the proximity of her wounds to her fracture, she may have resultant osteomyelitis. Given her extensive wounds and poor prognosis for healing, she may ultimately benefit from a proximal amputation (through knee or below knee) to established a healthy soft tissue bed that would be amenable to healing. Recommendations: 1. For the fracture- conservative treatment in posterior splint that is well padded (alumifoam splint provided by ED will be sufficient) 2. Wounds- Continue local wound care/Abx/drain management per Dr. Jacobo and hospitalist service 3. Full length tibia xrays to look for proximal fracture 4. MRI R tibia to evaluate for osteomyelitis. If fracture is acute there may be false positive T2 signal intensity within the bone, but T1 sequencing may be more sensitive to evaluate for extent of osteomyelitis proximally, if present 5. Vascular consult to consider/discuss amputation. I have discussed with this with patient and she does not desire amputation but an additional opinion would potentially be of benefit to inform the patient 6. ID consult for chronic osteomyelitis if suspected on MRI Orthopedics will follow peripherally while in house please re-consult as needed with questions. Thank you. Vital Signs/I&O Vital Signs Date Time Temp Pulse Resp B/P (MAP) Pulse Ox O2 Delivery O2 Flow Rate FiO2 12/15/18 16:35 12/15/18 15:55 97.5 114 16 99 Room Air Laboratory Data Labs 24H Laboratory Tests 2 12/15/18 16:37: Lactic Acid Level 4.6*H 12/15/18 16:48: Immature Granulocyte % (Auto) 0.7, White Blood Count 10.6H, Red Blood Count 4.43, Hemoglobin 10.0L, Hematocrit 34.4L, Mean Corpuscular Volume 77.7L, Mean Corpuscular Hemoglobin 22.6L, Mean Corpuscular Hemoglobin Concent 29.1L, Red Cell Distribution Width 16.3H, Platelet Count 747H, Neutrophils (%) (Auto) 76.3H, Lymphocytes (%) (Auto) 18.6L, Monocytes (%) (Auto) 3.7, Eosinophils (%) (Auto) 0.5, Basophils (%) (Auto) 0.2, Neutrophils # (Auto) 8.1H, Lymphocytes # (Auto) 2.0, Monocytes # (Auto) 0.4, Eosinophils # (Auto) 0.1, Basophils # (Auto) 0.0, Nucleated Red Blood Cells % (auto) 0.0, Erythrocyte Sedimentation Rate 116H, Anion Gap 10, Glomerular Filtration Rate > 60.0, Calcium Level 8.4L, Aspartate Amino Transf (AST/SGOT) 27, Alanine Aminotransferase (ALT/SGPT) 23, Alkaline Phosphatase 204H, Total Bilirubin 0.4, Direct Bilirubin 0.2, C-Reactive Protein, Quantitative 5.56H, Total Protein 7.9, Albumin 2.2L, Albumin/Globulin Ratio 0.39L CBC/BMP Laboratory Tests 12/15/18 16:48 Red Blood Count 4.43, Mean Corpuscular Volume 77.7 L, Mean Corpuscular Hemoglobin 22.6 L, Mean Corpuscular Hemoglobin Concent 29.1 L, Red Cell Distribution Width 16.3 H, Neutrophils (%) (Auto) 76.3 H, Lymphocytes (%) (Auto) 18.6 L, Monocytes (%) (Auto) 3.7, Eosinophils (%) (Auto) 0.5, Basophils (%) (Auto) 0.2, Neutrophils # (Auto) 8.1 H, Lymphocytes # (Auto) 2.0, Monocytes # (Auto) 0.4, Eosinophils # (Auto) 0.1, Basophils # (Auto) 0.0 Microbiology Microbiology 12/15/18 Blood Culture, Received Pending 12/15/18 Blood Culture, Received Pending Allergies Coded Allergies: Sulfa Drugs (Verified Allergy, Intermediate, HIVES, 01/17/13) Sulfa Drugs Cross Reactors (Verified Allergy, Intermediate, HIVES, 01/17/13) Sulfamethoxazole (Verified Allergy, Intermediate, HIVES, 01/17/13) Sulfamethoxazole w/Trimethoprim (Verified Allergy, Intermediate, rash,hives,itching, 11/07/15) Trimethoprim (Verified Allergy, Intermediate, HIVES, 01/17/13) Home Medications Scheduled Ascorbic Acid (Vitamin C) 500 Mg Tab, 500 MG PO DAILY, (Reported) Atorvastatin Calcium (Atorvastatin Calcium) 10 Mg Tab, 10 MG PO DAILY, (Reported) Folic Acid (Folic Acid) 1 Mg Tab, 1 MG PO DAILY, (Reported) Hydrochlorothiazide (Hydrochlorothiazide) 25 Mg Tab, 25 MG PO DAILY, (Reported) Levothyroxine Sodium (Synthroid) 175 Mcg Tab, 175 MCG PO QAM, (Reported) Multivitamins *[facility] STOCKED* (Thera M Plus *[facility] STOCKED*) 1 Tab Tab, 1 TAB PO DAILY, (Reported) Zinc Sulfate (Zinc Sulfate) 220 Mg Cap, 220 MG PO DAILY, (Reported) Scheduled PRN (Ciclopirox Olamine) 0.77 % Cre, 1 APLCT TOP PRN PRN for RASH, (Reported) APPLY UNDER BREASTS PAMELA MOSES MD Dec 15, 2018 21:29
[2018-12-15] MEDS ORDERED: PERCOCET 5MG/325MG TAB PO PRN (22:30)
[2018-12-15] MEDS ORDERED: ONDANSETRON 4MG/2ML VIAL (J2405) IV PRN (22:30)
--- NOTE | 2018-12-15 23:03 | PHACANCOPD ---
PHARMACY VANCOMYCIN DOSING Pt Demographics Demographics Patient Age:43 , Weight:75.910 , Gender: female Adjusted Body Weight Date: 12/15/18, Adjusted Body Weight: Kg Events Past 24 Hours Events Past 24 Hours: NO: Dialysis, Diuretic Therapy, Change in CrCl, Fever, Elevation in WBC, Pending Diagnostics, Pending Procedures, Other Vancomycin Vancomycin Target Ranges: 15-20 mcg/ml Vancomycin Load Y/N: No Load Dose Date Time Vancomycin Load Dose: Date: Time: Vancomycin Dose Date: 12/15/18. Current Vancomycin Dose: [1000mg q12h] Intermittent Dosing?: No Labs Labs Item Value Date Time White Blood Count 10.6 10^3/uL H 12/15/18 1648 Glomerular Filtration Rate > 60.0 12/15/18 1648 Creatinine 0.52 MG/DL L 12/15/18 1648 Blood Urea Nitrogen 3 MG/DL L 12/15/18 1648 Vital Signs Label Value Date Time Patient Temperature 97.5 degrees F 12/15/18 1555 Temperature Source Temporal 12/15/18 1555 Micro Microbiology 12/15/18 Blood Culture, Received Pending 12/15/18 Blood Culture, Received Pending Creatinine Clearance Date:12/15/18. Creatinine Clearance: [~50]. Pending Labs Trough 03-02 @0200 Assessment and Plan Maintaining Current Dose?: Yes Reason for dose change: No Dose Change Pharmacist Note Pharmacist Note Date: 12/15/18. Pharmacist note:Dosing based on previous consult. Will monitor and make adjustments as needed. EKATERINA VIERA PHARMACY Dec 15, 2018 23:03
[2018-12-16] MEDS ORDERED: CEFEPIME HCL 1 GM in D5W MINI-BAG PLUS 50 ML IV SCH (01:00)
[2018-12-16] MEDS: NS 1,000 ML IV SCH ×3 (01:38→22:27)
[2018-12-16] MEDS: metroNIDAZOLE 500 MG in APPROPRIATE DILUENT 1 EA IV SCH ×3 (01:38→17:14)
[2018-12-16 02:00] VITALS: BP 127/79
[2018-12-16] MEDS: VANCOMYCIN HCL 1,000 MG, VIAL MATE ADAPTER 1 EACH in D5W 250 ML IV SCH ×2 (02:56→14:42)
[2018-12-16] MEDS: CEFEPIME HCL 1 GM in D5W MINI-BAG PLUS 50 ML IV SCH ×2 (04:47→16:37)
[2018-12-16] MEDS: HEPARIN SOD (PORCINE) 5000 UNITS/ML VIAL SC SCH ×3 (05:45→22:27)
[2018-12-16] MEDS: LEVOTHYROXINE 75MCG TABLET (0.075MG) PO SCH (05:45)
[2018-12-16] MEDS: LEVOTHYROXINE 100MCG TABLET (0.1MG) PO SCH (05:45)
[2018-12-16 06:00] VITALS: BP 130/68
[2018-12-16 06:05] LABS: HEMATOCRIT 28.2 % (36.0-47.0); HEMOGLOBIN 8.5 g/dl (12.0-15.5); MEAN CORPUSCULAR HEMOGLOBIN 22.9 pg (27.0-33.0); MEAN CORPUSCULAR HGB CONC 30.1 g/dl (32.0-36.5); RED BLOOD COUNT 3.71 10^6/uL (4.00-5.40); WHITE BLOOD COUNT 10.7 10^3/uL (4.0-10.0)
[2018-12-16 06:11] LABS: PLATELET COUNT, AUTOMATED 604 10^3/uL (150-450)
[2018-12-16 06:22] LABS: BLOOD UREA NITROGEN 2 MG/DL (7-18); CALCIUM LEVEL 8.1 MG/DL (8.5-10.1); CARBON DIOXIDE LEVEL 24 MEQ/L (21-32); CHLORIDE LEVEL 106 MEQ/L (98-107); CREATININE FOR GFR 0.44 MG/DL (0.55-1.30); GLOMERULAR FILTRATION RATE > 60.0 (>58); GLUCOSE, FASTING 133 MG/DL (70-100); POTASSIUM SERUM 3.4 MEQ/L (3.5-5.1); SODIUM LEVEL 138 MEQ/L (136-145)
--- NOTE | 2018-12-16 07:16 | HPE ---
DATE OF ADMISSION: 12/15/2018 CHIEF COMPLAINT: Patient was sent by the wound care doctor, Dr. Jacobo, with infected ulcer of the foot status post incision and drainage with placement of a Jaki drain. HISTORY OF PRESENT ILLNESS: Patient is a 43-year-old female with significant past medical history of iron deficiency anemia, hypertension, hyperlipidemia, hypothyroidism, spina bifida with multiple surgeries, she is a paraplegic, wheelchair bound. She presents to the emergency room after being sent by the cash control specialist, Dr. Jacobo, after an incision and drainage of an ulcer on the lateral malleolus with a Jaki drain and a debridement of the metatarsals. Culture has been sent, it is in E-Clinical. Patient is paraplegic, has no sensation below the waist. She was unable to say how long she had this wound. X-ray of the foot ulcers showed a comminuted tibia/fibula fracture. She was evaluated by orthopedics in the emergency room who as per the ER provider recommended amputation, which the patient is not amenable to at this ointment in time. She denies any cough, chest pain, shortness of breath, fevers, chills, nausea, vomiting. PAST MEDICAL HISTORY: See history of present illness. PAST SURGICAL HISTORY: Spina bifida surgery. Stark's cyst removal. Knee surgery. Ankle surgery. HOME MEDICATIONS: Includes: - vitamin C - Lipitor - folic acid - hydrochlorothiazide - Synthroid - multivitamin - zinc sulfate ALLERGIES: 1. SULFA DRUGS. 2. SULFA DRUG CROSS REACTORS. 3. BACTRIM. SOCIAL HISTORY: Denies tobacco, alcohol or illicit drug use. FAMILY HISTORY: Chronic obstructive pulmonary disease (COPD). REVIEW OF SYSTEMS: A 12 point review of systems was completed, all of which were negative except those listed in the history of present illness. VITAL SIGNS ON ADMISSION: Temperature 97.5, pulse of 114, respirations 16, blood pressure 146/82, satting at 99% on room air. PHYSICAL EXAMINATION: GENERAL: She is well nourished, in no apparent distress. HEAD: Normocephalic, atraumatic. EYES: Extraocular movements are intact. Pupils equal, round, reactive to light. NECK: Supple. No jugular venous pressure (JVP). LUNGS: Clear to auscultation. CARDIOVASCULAR: Regular rate and rhythm. EXTREMITIES: She has erythema and a [place] drain on the lateral aspect of the ankle with some induration. Debridement good granulation tissue at the metatarsals. She is also warm to touch. The left leg is dwarfed. Spina bifida surgeries are noticeable, well healed. NEUROLOGICAL EXAM: She is alert and oriented times three. LABS AND IMAGING COMPLETED IN THE EMERGENCY ROOM: White count of 10, hemoglobin and hematocrit of 10/34, platelet count of 747. Chemistry shows a BUN and creatinine of 3/0.52, lactate 4.6, CRP 5.56, ESR is still pending. IMAGING: X-ray of the ankle shows acute comminuted fractures involving the distal tibia/fibula, diffuse distortion of the ankle, osteopenia. ASSESSMENT/PLAN: 1. Infected ulcer status post debridement, incision and drainage, with a [place] drain. Would culture sent. Will be available in E-Clinical. Blood culture sent. Will do vancomycin and Zosyn for now. ESR, CRP. MRI to rule out osteomyelitis. Orthopedic consult appreciated. Continue to follow recommendations. 2. Tibia/fibula fracture. Orthopedics was consulted. The foot has been immobilized. 3. Hypothyroidism. Continue Synthroid. 4. Hypertension. Continue hydrochlorothiazide. 5. Supportive deep vein thrombosis (DVT) prophylaxis. Heparin subcu. 6. Gastrointestinal (GI) prophylaxis. Not indicated. 7. Diet. Cardiac.
[2018-12-16] MEDS: ATORVASTATIN 10 MG TAB PO SCH (07:59)
[2018-12-16] MEDS: MULTIVITAMINS/MINERALS THERAP 1 TAB PO SCH (07:59)
[2018-12-16] MEDS: hydroCHLOROthiazide 25 MG TAB PO SCH (08:00)
[2018-12-16] MEDS: ASCORBIC ACID 500 MG TAB PO SCH (08:00)
[2018-12-16] MEDS: ZINC SULFATE 220 MG CAP PO SCH (08:00)
[2018-12-16] MEDS: FOLIC ACID 1 MG TAB PO SCH (08:00)
[2018-12-16] MEDS ORDERED: PILL CRUSHER/CUTTER 1 EACH XX PRN (08:15)
[2018-12-16 14:00] VITALS: BP 133/76
--- NOTE | 2018-12-16 14:54 | REP ---
MRI RIGHT FOOT WITHOUT CONTRAST: HISTORY: Rule out osteomyelitis. Comparison right foot radiographs December 15, 2018. TECHNIQUE: Axial coronal and sagittal T1- and T2-weighted scans were obtained. Scan quality is inhibited by less than optimal positioning. The patient's acute fractures. Comparison radiographs of the ankle December 15, 2018 show what appear to be subacute fractures of the distal tibia and fibula. The ankle and hindfoot appear to be fused. MRI FINDINGS: There is marked diffuse dorsal swelling over the forefoot, and to a lesser extent, diffuse swelling is seen at the midfoot and ankle level. There is heterogeneous fluid across the distal tibial and distal fibular fracture sites. There is no definite abscess. Cortical and medullary bone signal intensity are normal in the phalanges, metatarsals, and tarsal bones. Abnormal signal intensity is seen in the distal fibula and distal tibia. Dermal thickening and irregularity is seen in the dorsal forefoot soft tissues. IMPRESSION: Marked diffuse forefoot swelling particularly dorsally. There is no MR evidence of acute osteomyelitis. Subacute or acute fractures of the distal tibia and fibula are noted. Previous tibiotalar, fibulotalar, and hindfoot fusion. Electronically Signed by Emir Chang MD 12/16/2018 03:53 P
[2018-12-16] MEDS: SANTYL OINT 30GM TOP SCH (16:28)
--- NOTE | 2018-12-16 19:25 | IPN ---
DATE: 12/16/2018 SUBJECTIVE: Patient is seen and examined in the room today. Patient was seen by orthopedic surgery. Amputation was recommended. Patient refused. VITAL SIGNS: Temperature is 97.9, pulse 100, respiratory rate 18, blood pressure 130/68, pulse ox 90% on room air. GENERAL: The patient is alert and awake. No acute distress. HEENT: Normocephalic, atraumatic. Extraocular muscles grossly intact. CARDIOVASCULAR: Positive S1, S2. Regular rate. LUNGS: Clear to auscultation bilaterally. ABDOMEN: Soft, nontender, bowel sounds present. EXTREMITIES: Right lower extremity with dressing and bandage. There is sanguinous discharge noted through the dressing. Bilateral lower extremity deformity noted. Positive swelling mainly on the right lower extremity. LABORATORY DATA: WBC is 10.7, hemoglobin 8.5, hematocrit 28.2, platelet count is 604. Sodium is 138, potassium 3.4, chloride is 106, carbon dioxide 24, BUN 2, creatinine 0.44. GFR greater than 60. Fasting glucose 133. Calcium 8.1. ASSESSMENT AND PLAN: 1. Infected right lower extremity ulcer, status post debridement with Dr. Jacobo in the outpatient setting. Patient had excisional drainage with [place] drain in place. Preliminary wound cultures were done in the outpatient setting showing group B Streptococcus. Will followup with final cultures. MRI of the foot did not suggest osteomyelitis. 2. Right tibial fracture with open wound. academic program specialist consulted, amputation recommended. Patient refused amputation. Followup with MRI of the right tibia. 3. Spinal bifida, status post spinal bifida surgery. Patient has complete loss of sensation below the waist. 4. Hypothyroidism. On Synthroid. 5. Hypertension. Blood pressure is within satisfactory range. Continue hydrochlorothiazide. 6. Deep venous thrombosis (DVT) prophylaxis. On heparin.
[2018-12-16 22:00] VITALS: BP 110/69
[2018-12-16] MEDS ORDERED: HEPARIN SOD (PORCINE) 5000 UNITS/ML VIAL As Ordered ONE (22:20)
[2018-12-17] MEDS: metroNIDAZOLE 500 MG in APPROPRIATE DILUENT 1 EA IV SCH ×3 (00:03→17:30)
[2018-12-17] MEDS: VANCOMYCIN HCL 1,000 MG, VIAL MATE ADAPTER 1 EACH in D5W 250 ML IV SCH ×2 (02:58→16:08)
[2018-12-17] MEDS: LEVOTHYROXINE 75MCG TABLET (0.075MG) PO SCH (05:10)
[2018-12-17] MEDS: HEPARIN SOD (PORCINE) 5000 UNITS/ML VIAL SC SCH ×3 (05:10→21:41)
[2018-12-17] MEDS: LEVOTHYROXINE 100MCG TABLET (0.1MG) PO SCH (05:10)
[2018-12-17] MEDS: CEFEPIME HCL 1 GM in D5W MINI-BAG PLUS 50 ML IV SCH ×2 (05:10→17:18)
[2018-12-17 06:00] VITALS: BP 108/62
[2018-12-17 06:49] LABS: HEMATOCRIT 28.7 % (36.0-47.0); HEMOGLOBIN 8.5 g/dl (12.0-15.5); MEAN CORPUSCULAR HEMOGLOBIN 22.6 pg (27.0-33.0); MEAN CORPUSCULAR HGB CONC 29.6 g/dl (32.0-36.5); MEAN CORPUSCULAR VOLUME 76.3 fl (80.0-96.0); PLATELET COUNT, AUTOMATED 543 10^3/uL (150-450); RED BLOOD COUNT 3.76 10^6/uL (4.00-5.40); WHITE BLOOD COUNT 9.4 10^3/uL (4.0-10.0)
[2018-12-17 07:24] LABS: BLOOD UREA NITROGEN 5 MG/DL (7-18); C REACTIVE PROTEIN QUANTITATIV 7.47 MG/DL (0.00-0.30); CALCIUM LEVEL 7.8 MG/DL (8.5-10.1); CARBON DIOXIDE LEVEL 27 MEQ/L (21-32); CHLORIDE LEVEL 105 MEQ/L (98-107); CREATININE FOR GFR 0.42 MG/DL (0.55-1.30); GLOMERULAR FILTRATION RATE > 60.0 (>58); GLUCOSE, FASTING 138 MG/DL (70-100); POTASSIUM SERUM 3.3 MEQ/L (3.5-5.1); SODIUM LEVEL 140 MEQ/L (136-145); THYROID STIMULATING HORMONE 0.213 uIU/ML (0.358-3.740)
[2018-12-17] MEDS ORDERED: POTASSIUM CHLORIDE 10 MEQ SR TABLET PO ONE (08:45)
[2018-12-17] MEDS: NS 1,000 ML IV SCH ×2 (09:01→18:58)
[2018-12-17] MEDS: MULTIVITAMINS/MINERALS THERAP 1 TAB PO SCH (09:02)
[2018-12-17] MEDS: ZINC SULFATE 220 MG CAP PO SCH (09:02)
[2018-12-17] MEDS: ASCORBIC ACID 500 MG TAB PO SCH (09:02)
[2018-12-17] MEDS: hydroCHLOROthiazide 25 MG TAB PO SCH (09:03)
[2018-12-17] MEDS: SANTYL OINT 30GM TOP SCH (09:04)
[2018-12-17] MEDS: FOLIC ACID 1 MG TAB PO SCH (09:05)
[2018-12-17] MEDS: ATORVASTATIN 10 MG TAB PO SCH (09:05)
[2018-12-17 09:31] LABS: FREE T4 1.81 NG/DL (0.76-1.46); MAGNESIUM LEVEL 2.4 MG/DL (1.8-2.4)
[2018-12-17 14:00] VITALS: BP 112/65
--- NOTE | 2018-12-17 19:57 | IPNPDOC ---
Text Note Date of Service The patient was seen on 12/17/18. NOTE SUBJECTIVE: Patient is seen and examined in the room today. Patient denies fever or chill. Patient denies acute event. VITAL SIGNS: Listed below. GENERAL: The patient is alert and awake. No acute distress. HEENT: Normocephalic, atraumatic. Extraocular muscles grossly intact. CARDIOVASCULAR: Positive S1, S2. Regular rate. LUNGS: Clear to auscultation bilaterally. ABDOMEN: Soft, nontender, bowel sounds present. EXTREMITIES: [place] drainage located around right ankle. Dried discharge noted on dressing. Wound at right lower extremity above right posterior knee. LABORATORY DATA: Listed below. ASSESSMENT AND PLAN: #. Infected right lower extremity ulcer - status post debridement with branch operations specialist, Dr. Jacobo, in the outpatient setting. Patient had excisional drainage with Jaki drain in place. Preliminary wound cultures were done in the outpatient setting showing group B Streptococcus. Will followup with final cultures. MRI of the foot did not suggest osteomyelitis. Continue empirical antibiotic. #. Right tibial fracture with open wound. - cyber security specialist consulted, amputation recommended. Patient refused amputation. #. Spinal bifida, status post spinal bifida surgery. Patient has complete loss of sensation below the waist. #. Hypothyroidism. On Synthroid. #. Hypertension. - Blood pressure is within satisfactory range. Continue hydrochlorothiazide. #. Deep venous thrombosis (DVT) prophylaxis. On heparin. VS,Fishbone, I+O VS, Fishbone, I+O Laboratory Tests 12/17/18 06:37 Red Blood Count 3.76 L, Mean Corpuscular Volume 76.3 L, Mean Corpuscular Hemoglobin 22.6 L, Mean Corpuscular Hemoglobin Concent 29.6 L, Red Cell Distribution Width 16.8 H, Calcium Level 7.8 L Vital Signs Date Time Temp Pulse Resp B/P (MAP) Pulse Ox O2 Delivery O2 Flow Rate FiO2 12/17/18 14:00 98.5 102 19 112/65 (81) 95 12/16/18 00:47 Room Air I&O- Last 24 Hours up to 6 AM 12/17/18 06:00 Intake Total 2915 ml Output Total 0 ml Balance 2915 ml NATALIE MCKEON DO Dec 17, 2018 19:57
[2018-12-17 22:00] VITALS: BP 154/73
[2018-12-18] MEDS: metroNIDAZOLE 500 MG in APPROPRIATE DILUENT 1 EA IV SCH ×3 (00:01→16:55)
[2018-12-18] MEDS: VANCOMYCIN HCL 1,000 MG, VIAL MATE ADAPTER 1 EACH in D5W 250 ML IV SCH ×2 (02:28→15:50)
[2018-12-18] MEDS: CEFEPIME HCL 1 GM in D5W MINI-BAG PLUS 50 ML IV SCH ×2 (04:30→16:54)
[2018-12-18] MEDS: NS 1,000 ML IV SCH ×2 (04:31→16:55)
[2018-12-18] MEDS: LEVOTHYROXINE 137MCG TABLET (0.137MG) PO SCH (05:44)
[2018-12-18] MEDS: HEPARIN SOD (PORCINE) 5000 UNITS/ML VIAL SC SCH ×3 (05:49→22:00)
[2018-12-18 06:00] VITALS: BP 121/61
[2018-12-18 06:58] LABS: HEMATOCRIT 30.5 % (36.0-47.0); HEMOGLOBIN 8.9 g/dl (12.0-15.5); MEAN CORPUSCULAR HEMOGLOBIN 22.8 pg (27.0-33.0); MEAN CORPUSCULAR HGB CONC 29.2 g/dl (32.0-36.5); MEAN CORPUSCULAR VOLUME 78.2 fl (80.0-96.0); PLATELET COUNT, AUTOMATED 572 10^3/uL (150-450); WHITE BLOOD COUNT 8.6 10^3/uL (4.0-10.0)
[2018-12-18 07:17] LABS: BLOOD UREA NITROGEN 8 MG/DL (7-18); C REACTIVE PROTEIN QUANTITATIV 3.29 MG/DL (0.00-0.30); CALCIUM LEVEL 8.2 MG/DL (8.5-10.1); CARBON DIOXIDE LEVEL 27 MEQ/L (21-32); CHLORIDE LEVEL 104 MEQ/L (98-107); CREATININE FOR GFR 0.53 MG/DL (0.55-1.30); GLOMERULAR FILTRATION RATE > 60.0 (>58); GLUCOSE, FASTING 163 MG/DL (70-100); POTASSIUM SERUM 3.8 MEQ/L (3.5-5.1); SODIUM LEVEL 138 MEQ/L (136-145)
[2018-12-18] MEDS: FOLIC ACID 1 MG TAB PO SCH (09:28)
[2018-12-18] MEDS: ASCORBIC ACID 500 MG TAB PO SCH (09:28)
[2018-12-18] MEDS: MULTIVITAMINS/MINERALS THERAP 1 TAB PO SCH (09:28)
[2018-12-18] MEDS: ATORVASTATIN 10 MG TAB PO SCH (09:28)
[2018-12-18] MEDS: SANTYL OINT 30GM TOP SCH (09:28)
[2018-12-18] MEDS: hydroCHLOROthiazide 25 MG TAB PO SCH (09:28)
[2018-12-18] MEDS: ZINC SULFATE 220 MG CAP PO SCH (09:28)
--- NOTE | 2018-12-18 19:48 | IPNPDOC ---
Text Note Date of Service The patient was seen on 12/18/18. NOTE SUBJECTIVE: Patient is seen and examined in the room today. Patient denies fever or chill. Patient denies acute event. VITAL SIGNS: Listed below. GENERAL: The patient is alert and awake. No acute distress. HEENT: Normocephalic, atraumatic. Extraocular muscles grossly intact. CARDIOVASCULAR: Positive S1, S2. Regular rate. LUNGS: Clear to auscultation bilaterally. ABDOMEN: Soft, nontender, bowel sounds present. EXTREMITIES: Galva drainage located around right ankle. Right lower extremity is wrapped with bandage dressing. LABORATORY DATA: Listed below. ASSESSMENT AND PLAN: #. Infected right lower extremity ulcer - status post debridement with airport operations specialist, Dr. Jacobo, in the outpatient setting. Patient had excisional drainage with Jaki drain in place. Wound culture were done in the outpatient setting showed group G Streptococcus. MRI of the foot did not suggest osteomyelitis. Continue IV antibiotic #. Right tibial fracture with open wound. - gas plant specialist consulted, amputation recommended. Patient refused amputation. #. Spinal bifida, status post spinal bifida surgery. Patient has complete loss of sensation below the waist. #. Hypothyroidism. On Synthroid. #. Hypertension. - Blood pressure is within satisfactory range. Continue hydrochlorothiazide. #. Deep venous thrombosis (DVT) prophylaxis. On heparin. VS,Fishbone, I+O VS, Fishbone, I+O Laboratory Tests 12/18/18 06:29 Red Blood Count 3.90 L, Mean Corpuscular Volume 78.2 L, Mean Corpuscular Hemoglobin 22.8 L, Mean Corpuscular Hemoglobin Concent 29.2 L, Red Cell Distribution Width 17.2 H, Calcium Level 8.2 L Vital Signs Date Time Temp Pulse Resp B/P (MAP) Pulse Ox O2 Delivery O2 Flow Rate FiO2 12/18/18 06:00 98.3 76 18 121/61 (81) 97 12/16/18 00:47 Room Air I&O- Last 24 Hours up to 6 AM 12/18/18 06:00 Intake Total 3720 ml Balance 3720 ml NATALIE MCKEON DO Dec 18, 2018 19:48
[2018-12-18 22:00] VITALS: BP 129/71
[2018-12-19] MEDS: VANCOMYCIN HCL 1,000 MG, VIAL MATE ADAPTER 1 EACH in D5W 250 ML IV SCH ×2 (02:00→14:10)
[2018-12-19] MEDS: LEVOTHYROXINE 137MCG TABLET (0.137MG) PO SCH (05:07)
[2018-12-19 06:00] VITALS: BP 120/77
[2018-12-19] MEDS: HEPARIN SOD (PORCINE) 5000 UNITS/ML VIAL SC SCH ×3 (06:00→21:25)
[2018-12-19 07:42] LABS: HEMATOCRIT 29.9 % (36.0-47.0); HEMOGLOBIN 8.9 g/dl (12.0-15.5); MEAN CORPUSCULAR HEMOGLOBIN 22.8 pg (27.0-33.0); MEAN CORPUSCULAR HGB CONC 29.8 g/dl (32.0-36.5); MEAN CORPUSCULAR VOLUME 76.5 fl (80.0-96.0); PLATELET COUNT, AUTOMATED 593 10^3/uL (150-450); RED BLOOD COUNT 3.91 10^6/uL (4.00-5.40); WHITE BLOOD COUNT 8.8 10^3/uL (4.0-10.0)
[2018-12-19 08:14] LABS: BLOOD UREA NITROGEN 7 MG/DL (7-18); CALCIUM LEVEL 8.2 MG/DL (8.5-10.1); CARBON DIOXIDE LEVEL 28 MEQ/L (21-32); CHLORIDE LEVEL 104 MEQ/L (98-107); CREATININE FOR GFR 0.53 MG/DL (0.55-1.30); GLOMERULAR FILTRATION RATE > 60.0 (>58); GLUCOSE, FASTING 145 MG/DL (70-100); POTASSIUM SERUM 3.9 MEQ/L (3.5-5.1); SODIUM LEVEL 138 MEQ/L (136-145)
--- NOTE | 2018-12-19 09:07 | REP ---
MRI RIGHT LOWER LEG: Multiple sequences obtained in the axial, coronal, and sagittal planes. There is a fracture of the distal third of the tibia with medial displacement. There is surrounding edema and fluid along the tibial shaft in this region. Ulceration is seen on the skin in the very distal aspect of the lower leg laterally. There is adjacent edema and probable cellulitis. Adjacent distal fibula appears destroyed and I suspect osteomyelitis at that location. The distal margin of the fibula is irregular and there appears to be periosteal reaction. The adjacent distal tibia demonstrates heterogeneous low signal on T1 and high signal on T2 and there may be involvement of the distal end of the tibia by osteomyelitis as well. IMPRESSION: Soft tissue ulcer with edema and cellulitis distal lower leg laterally. The adjacent distal fibula appears destroyed secondary to osteomyelitis. There may also be involvement of the adjacent distal tibia. There is an oblique fracture of the distal third of the tibia with surrounding edema and fluid along the tibial shaft. Electronically Signed by Elmer Godinez MD 12/19/2018 05:37 P
[2018-12-19 09:15] VITALS: BP 142/80
[2018-12-19] MEDS: ZINC SULFATE 220 MG CAP PO SCH (09:56)
[2018-12-19] MEDS: ATORVASTATIN 10 MG TAB PO SCH (09:56)
[2018-12-19] MEDS: FOLIC ACID 1 MG TAB PO SCH (09:56)
[2018-12-19] MEDS: ASCORBIC ACID 500 MG TAB PO SCH (09:56)
[2018-12-19] MEDS: MULTIVITAMINS/MINERALS THERAP 1 TAB PO SCH (09:57)
[2018-12-19] MEDS: hydroCHLOROthiazide 25 MG TAB PO SCH (09:57)
[2018-12-19] MEDS: SANTYL OINT 30GM TOP SCH (09:59)
[2018-12-19] MEDS: NS 1,000 ML IV SCH ×2 (10:00→15:55)
[2018-12-19] MEDS ORDERED: DIAPER RELIEF PASTE (DESITIN) 60GM TOP PRN (13:30)
--- NOTE | 2018-12-19 14:25 | IPNPDOC ---
Text Note Date of Service The patient was seen on 12/19/18. NOTE SUBJECTIVE: Patient is seen and examined in the room today. Patient denies fever or chill. Patient denies acute complaint. VITAL SIGNS: Listed below. GENERAL: The patient is alert and awake. No acute distress. HEENT: Normocephalic, atraumatic. Extraocular muscles grossly intact. CARDIOVASCULAR: Positive S1, S2. Regular rate. LUNGS: Clear to auscultation bilaterally. ABDOMEN: Soft, nontender, bowel sounds present. EXTREMITIES: Right lower extremity is wrapped with bandage dressing. Positive lower extremity edema. LABORATORY DATA: Listed below. ASSESSMENT AND PLAN: #. Right tibial/fibular fracture with open wound. - denial resolution specialist consulted, amputation recommended. Patient refused amputation. Patient is not able to tolerate cast. - Consulted Vascular surgery, Dr. Altamirano. - Consulted Dr. Jacobo for telephone conference. #. Infected right lower extremity ulcer - status post debridement with behavior support specialist, Dr. Jacobo, in the outpatient setting. Patient had excisional drainage with Alb[place] drain in place. Wound culture were done in the outpatient setting showed group G Streptococcus. MRI of the foot did not suggest osteomyelitis. Continue IV antibiotic - Albion drain will be removed during dressing change on 12/19/18 #. Spinal bifida, status post spinal bifida surgery. Patient has complete loss of sensation below the waist. #. Hypothyroidism. On Synthroid. #. Hypertension. - Blood pressure is within satisfactory range. Continue hydrochlorothiazide. #. Deep venous thrombosis (DVT) prophylaxis. On heparin. VS,Fishbone, I+O VS, Fishbone, I+O Laboratory Tests 12/19/18 07:26 Red Blood Count 3.91 L, Mean Corpuscular Volume 76.5 L, Mean Corpuscular Hemoglobin 22.8 L, Mean Corpuscular Hemoglobin Concent 29.8 L, Red Cell Distribution Width 17.3 H, Calcium Level 8.2 L Vital Signs Date Time Temp Pulse Resp B/P (MAP) Pulse Ox O2 Delivery O2 Flow Rate FiO2 12/19/18 09:15 97.2 106 20 142/80 (100) 97 12/16/18 00:47 Room Air I&O- Last 24 Hours up to 6 AM 12/19/18 06:00 Intake Total 4190 ml Balance 4190 ml NATALIE MCKEON DO Dec 19, 2018 14:25
[2018-12-19 14:30] VITALS: BP 129/98
[2018-12-19] MEDS: cefTRIAXone SOD 1 GM in D5W MINI-BAG PLUS 50 ML IV SCH (15:56)
--- NOTE | 2018-12-19 20:43 | CR ---
DATE OF CONSULTATION: 12/19/2018 Advanced wound care consult via telemedicine. CONSULTATION REPORT FOR: Lauren Torres MD This is regarding treatment for a complicated wound involving the patient's right lower extremity. 43-year-old nonambulatory spina bifida female patient who has been treated over the last 2 years for multiple wounds involving the right lower extremity, including the distal malformed foot,malleolar areas, posterior popliteal fossa, thigh wounds and coccyx wounds. In general the patient has shown some improvement of her wounds in general and certain wounds have actually healed aided by the addition of Prontosan, a surfactant ointment which dissolves bacterial biofilm. She has had multiple debridements with application of many advanced tissue products to her wounds with satisfactory results. The patient was seen last , 12/15/2018 for a new wound involving the right lateral malleolar area. The patient has been followed at the lymphedema clinic for manual decompression and wrapping of her chronic lymphedema involving her right leg. When seen on December 09 there was no open wound. When seen in the lymphedema clinic on Wednesday to 11/22/2018 there was a deep tissue injury involving the right lateral malleolar area. When seen on 11/24/2018 there was now an open wound and the patient was referred to our clinic for evaluation. When seen on 11/24/2018 there was significant erythema involving the right lower extremity from the malleolar area to the knee. There was 4+ pitting edema. On the lateral supramalleolar area there was a wound measuring 1.0 cm x 1.0 cm with a wound depth of 1.4 cm. The wound extended down to the fascial layer. There was copious amounts of serous fluid weeping from the wound. No purulent drainage was noted. There was no associated pain as the patient was insensate. The distal aspect of her foot was malformed with no toes present and showed a dorsal wound involving the entire metatarsal area. There was no voluntary movement of the extremity. Our initial treatment was to insert a Achille drain to assist with wound drainage, and to insert a Hydrofera Blue rope, and dressed with an OptiLock dressing secured with a Kerlex wrap and followed by a Coban wrap. A baseline wound culture was obtained. She was sent to the emergency room and I pre-called notifying them of the problem. X-rays of the right lower extremity showed a comminuted, spiral fracture involving the distal tibia and significant displacement of the fibula. The patient was admitted. She was seen by orthopedics who recommended amputation as the patient is not a candidate for internal fixation and would be a high infection risk for any open reduction and fixation with hardware. . The patient initially refused this treatment suggestion and I was asked to evaluate the patient via telemedicine. When seen today via telemedicine there is improvement in the edema involving the chronically swollen right lower extremity. Drainage is serosanguineous and the wound dimensions have not changed and measure 2.0 cm x 2.0 cm with a wound depth of 2.3 cm. The patient has no sensation and there was no evidence of acute ischemic change. Treatment options are limited and pose a significant problem. I discussed with the patient via telemedicine her limited treatment options. It is clear that internal fixation is not feasible and no treatment at all would lead to malunion, osteomyelitis and further wound complications. As the patient is nonambulatory, an above-knee amputation would take care of the fracture problem and the patient's multiple wounds. It actually would improve her quality of life eliminating all but the coccyx wound. It is understandable that the patient is having a difficult time agreeing to this and I reiterated to her that in reality her right lower extremity is not fully functional and is really becoming a burden to her general health with repeated and recurrent wounds. Now with a comminuted tibial fibular fracture her wound care and medical problems have escalated.. She indicated that she is still unsure about surgical intervention which would be an of above-knee amputation. In my opinion, a below-knee amputation has no place in her treatment as it would leave extensive scarring in the popliteal fossa which has an associated wound and would compromise the proposed amputation. An amputation at this site would serve no mechanical function and would place it at risk for further trauma which would create a nonhealing amputation site which could feasibly require a follow-up operation. The other potential possibility would be to place the patient in traction to see if alignment of the bone could be achieved, however this type of treatment would require several months with no guarantee of healing and would still not solve the problem of chronic lymphedema, open wounds and in actuality with prolonged hospitalization may cause additional new pressure injuries. Quite a difficult problem. I will discuss the case with the orthopedic surgeon who has seen her. COREY
[2018-12-19 22:00] VITALS: BP 121/67
--- NOTE | 2018-12-19 22:50 | CR.PDOC ---
Subjective General Date/Time Seen The patient was seen on 12/19/18 at 8:40. Subject Chief Complaint/History The patient is a 43-year-old female with nonhealing right lower extremity ulceration and tibial fracture with osteomyelitis of the fibula and possibly of the tibia. Current Medications Current Medications Current Medications Ascorbic Acid (Vitamin C) 500 mg DAILY PO Last administered on 12/19/18 09:56; Start 12/16/18 at 09:00 Atorvastatin Calcium (Lipitor) 10 mg DAILY PO Last administered on 12/19/18 09:56; Start 12/16/18 at 09:00 Cefepime HCl 1 gm/ Dextrose 50 ml @ 100 mls/hr Q12H IV ; Start 12/16/18 at 01:00; Stop 12/16/18 at 02:42; Status DC Cefepime HCl 1 gm/ Dextrose 50 ml @ 100 mls/hr Q12H IV Last administered on 12/18/18 16:54; Start 12/16/18 at 04:00; Stop 12/18/18 at 19:52; Status DC Ceftriaxone Sodium 1 gm/ Dextrose 50 ml @ 100 mls/hr Q24H IV Last administered on 12/19/18 15:56; Start 12/19/18 at 16:00 Cod Liver Oil/ Zinc Oxide (Desitin) 1 dose WDC PRN TOP EACH DRESSING CHANGE; Start 12/19/18 at 13:30 Collagenase (Santyl) 1 dose DAILY TOP Last administered on 12/19/18 09:59; Start 12/16/18 at 09:00 Folic Acid (Folic Acid) 1 mg DAILY PO Last administered on 12/19/18 09:56; Start 12/16/18 at 09:00 Heparin Sodium (Porcine) (Heparin) 5,000 units Q8H SC Last administered on 12/16/18at 22:27; Start 12/16/18 at 06:00 Home Med (Med Rec Complete!) ASDIRECTED XX ; Start 12/15/18 at 18:00; Stop 12/15/18 at 18:00; Status DC Hydrochlorothiazide (Hydrodiuril) 25 mg DAILY PO Last administered on 12/19/18 09:57; Start 12/16/18 at 09:00 Levothyroxine Sodium (Synthroid) 75 mcg DAILY@06 PO Last administered on 3/2/19at 05:10; Start 12/16/18 at 06:00; Stop 12/17/18 at 19:52; Status DC Levothyroxine Sodium (Synthroid) 100 mcg DAILY@06 PO Last administered on 12/17/18 05:10; Start 12/16/18 at 06:00; Stop 12/17/18 at 19:52; Status DC Levothyroxine Sodium (Synthroid) 137 mcg DAILY@06 PO Last administered on 12/19/18 05:07; Start 12/18/18 at 06:00 Metronidazole 500 mg/IV Miscellaneous Supplies 100 ml @ 100 mls/hr Q8H IV Last administered on 12/18/18 16:55; Start 12/16/18 at 00:00; Stop 12/18/18 at 19:52; Status DC Multivitamins (Theragram-M) 1 tab DAILY PO Last administered on 12/19/18 09:57; Start 12/16/18 at 09:00 Ondansetron HCl (ZOFRAN INJection) 4 mg Q6HP PRN IV NAUSEA OR VOMITING; Start 12/15/18 at 22:30 Oxycodone/ Acetaminophen (Percocet 5mg/ 325mg Tablet) 1 tab Q8HP PRN PO MODE RATE PAIN (PS 5-7) Last administered on 12/17/18 09:04; Start 12/15/18 at 22:30 Sodium Chloride 1,000 ml @ 90 mls/hr Q11H7M IV Last administered on 12/19/18 15:55; Start 12/15/18 at 22:30 Vancomycin HCl 1000 mg/IV Miscellaneous Supplies 1 each/ Dextrose 270 ml @ 270 mls/hr Q12H IV Last administered on 12/19/18 14:10; Start 12/16/18 at 03:00; Stop 12/19/18 at 14:23; Status DC Zinc Sulfate (Zinc Sulfate) 220 mg DAILY PO Last administered on 12/19/18 09:56; Start 12/16/18 at 09:00 Allergies Coded Allergies: Sulfa Drugs (Verified Allergy, Intermediate, HIVES, 01/17/13) Sulfa Drugs Cross Reactors (Verified Allergy, Intermediate, HIVES, 01/17/13) Sulfamethoxazole (Verified Allergy, Intermediate, HIVES, 01/17/13) Sulfamethoxazole w/Trimethoprim (Verified Allergy, Intermediate, rash,hives,itching, 11/07/15) Trimethoprim (Verified Allergy, Intermediate, HIVES, 01/17/13) Current Medications Current Medications Ascorbic Acid (Vitamin C) 500 mg DAILY PO Last administered on 12/19/18 09:56; Start 12/16/18 at 09:00 Atorvastatin Calcium (Lipitor) 10 mg DAILY PO Last administered on 12/19/18 09:56; Start 12/16/18 at 09:00 Cefepime HCl 1 gm/ Dextrose 50 ml @ 100 mls/hr Q12H IV ; Start 12/16/18 at 01:00; Stop 12/16/18 at 02:42; Status DC Cefepime HCl 1 gm/ Dextrose 50 ml @ 100 mls/hr Q12H IV Last administered on 12/18/18 16:54; Start 12/16/18 at 04:00; Stop 12/18/18 at 19:52; Status DC Ceftriaxone Sodium 1 gm/ Dextrose 50 ml @ 100 mls/hr Q24H IV Last administered on 12/19/18 15:56; Start 12/19/18 at 16:00 Cod Liver Oil/ Zinc Oxide (Desitin) 1 dose WDC PRN TOP EACH DRESSING CHANGE; Start 12/19/18 at 13:30 Collagenase (Santyl) 1 dose DAILY TOP Last administered on 12/19/18 09:59; Start 12/16/18 at 09:00 Folic Acid (Folic Acid) 1 mg DAILY PO Last administered on 12/19/18 09:56; Start 12/16/18 at 09:00 Heparin Sodium (Porcine) (Heparin) 5,000 units Q8H SC Last administered on 12/16/18 22:27; Start 12/16/18 at 06:00 Home Med (Med Rec Complete!) ASDIRECTED XX ; Start 12/15/18 at 18:00; Stop 12/15/18 at 18:00; Status DC Hydrochlorothiazide (Hydrodiuril) 25 mg DAILY PO Last administered on 12/19/18 09:57; Start 12/16/18 at 09:00 Levothyroxine Sodium (Synthroid) 75 mcg DAILY@06 PO Last administered on 12/17/18 05:10; Start 12/16/18 at 06:00; Stop 12/17/18 at 19:52; Status DC Levothyroxine Sodium (Synthroid) 100 mcg DAILY@06 PO Last administered on 12/17/18 05:10; Start 12/16/18 at 06:00; Stop 12/17/18 at 19:52; Status DC Levothyroxine Sodium (Synthroid) 137 mcg DAILY@06 PO Last administered on 12/19/18 05:07; Start 12/18/18 at 06:00 Metronidazole 500 mg/IV Miscellaneous Supplies 100 ml @ 100 mls/hr Q8H IV Last administered on 12/18/18 16:55; Start 12/16/18 at 00:00; Stop 12/18/18 at 19:52; Status DC Multivitamins (Theragram-M) 1 tab DAILY PO Last administered on 12/19/18 09:57; Start 12/16/18 at 09:00 Ondansetron HCl (ZOFRAN INJection) 4 mg Q6HP PRN IV NAUSEA OR VOMITING; Start 12/15/18 at 22:30 Oxycodone/ Acetaminophen (Percocet 5mg/ 325mg Tablet) 1 tab Q8HP PRN PO MODERATE PAIN (PS 5-7) Last administered on 12/17/18 09:04; Start 12/15/18 at 22:30 Sodium Chloride 1,000 ml @ 90 mls/hr Q11H7M IV Last administered on 12/19/18 15:55; Start 12/15/18 at 22:30 Vancomycin HCl 1000 mg/IV Miscellaneous Supplies 1 each/ Dextrose 270 ml @ 270 mls/hr Q12H IV Last administered on 12/19/18 14:10; Start 12/16/18 at 03:00; Stop 12/19/18 at 14:23; Status DC Zinc Sulfate (Zinc Sulfate) 220 mg DAILY PO Last administered on 12/19/18 09:56; Start 12/16/18 at 09:00 Home Medications Home Medications Scheduled Ascorbic Acid (Vitamin C) 500 Mg Tab, 500 MG PO DAILY, (Reported) Atorvastatin Calcium (Atorvastatin Calcium) 10 Mg Tab, 10 MG PO DAILY, (Reported) Folic Acid (Folic Acid) 1 Mg Tab, 1 MG PO DAILY, (Reported) Hydrochlorothiazide (Hydrochlorothiazide) 25 Mg Tab, 25 MG PO DAILY, (Reported) Levothyroxine Sodium (Synthroid) 175 Mcg Tab, 175 MCG PO QAM, (Reported) Multivitamins *[facility] STOCKED* (Thera M Plus *[facility] STOCKED*) 1 Tab Tab, 1 TAB PO DAILY, (Reported) Zinc Sulfate (Zinc Sulfate) 220 Mg Cap, 220 MG PO DAILY, (Reported) Scheduled PRN (Ciclopirox Olamine) 0.77 % Cre, 1 APLCT TOP PRN PRN for RASH, (Reported) APPLY UNDER BREASTS Past Medical History Medical History Spina bifida. Chronic nonhealing lower extremity wounds. Social History * Smoker: Denies Alcohol: Denies Drugs: denies Recent Travel/Sick Contacts: Denies: Recent travel, Recent sick contacts Psychosocial History: No pertinent psych hx Review of Systems Review of Systems General: Denies: ROS Unobtainable, Chills, Night Sweats, Fatigue, Malaise, Normal Appetite Constitutional: Denies: Chills, Fever, Malaise, Night Sweats, Weakness, Fatigue, Weight Loss, Lethargy Eyes: Denies: Pain, Vision change, Conjunctivae inflammation, Eyelid inflammation, Redness HEENT: Denies: Head Aches, Ear Pain, Dysphagia, Sinus Congestion, Post Nasal Drip, Sore Throat, Epistaxis Skin: Denies: Rash, Lesions, Jaundice, Bruising, Itching, Dry, Breakdown, Nail Changes Pulmonary: Denies: Dyspnea, Cough, Pleuritic Chest Pain Cardiovascular: Denies: Chest Pain, Palpitations, Orthopnea, Paroxysmal Noc. Dyspnea, Edema, Lt Headedness Gastrointestinal: Denies: Nausea, Vomiting, Abdominal Pain, Diarrhea, Constipation, Melena, Hematochezia Genitourinary: Denies: Dysuria, Frequency, Incontinence, Hematuria, Retention Hematologic: Denies: Bruising, Bleeding Excessively, Petecchia, Purpura, Enlarged Lymph Nodes ENDOCRINE: Denies: Polydipsia, Polyphagia, Polyuria, Heat Intolerance, Cold Intolerance Musculoskeletal: Denies: Neck Pain, Back Pain, Shoulder Pain, Arm Pain, Hand Pain, Leg Pain, Foot Pain, Joint Pain, Muscle Pain, Spasms Neurological: Denies: Weakness, Numbness, Incoordination, Change in speech, Confusion, Seizures Psych: Reports: Mood Normal; Denies: Anxiety, Depression, Memory Issues, Thoughts of Self Harm, Anger, Thoughts of Harming Other VITAL SIGNS VITAL SIGNS Afebrile, vital signs stable. Objective Physical Examination General Exam: Positive: Alert, Cooperative, No Acute Distress Eye Exam: Positive: Conjunctiva & lids normal ENT Exam: Positive: Atraumatic, Mucous membr. moist/pink, Pharynx Normal, Tongue Midline, Nares Patent, Ext Auditory Canal Nml Neck Exam: Positive: Supple, +2 carotid pulse wo bruit; Negative: JVD, thyromegaly, Lymphadenopathy Chest Exam: Positive: Clear to auscultation, Normal air movement; Negative: Rales, Rhonchi, Wheezing, Diminished Heart Exam: Positive: Rate Normal, Regular Rhythm; Negative: Tachycardic, Bradycardic, Irregular Rhythm, Gallops, Murmurs, Rubs Telemetry: Positive: No significant arrhythmia, Sinus Abdomen Exam: Positive: Normal bowel sounds, Soft Female Exam: Positive: Nl Ext Genitalia Extremity Exam: Negative: Clubbing, Cyanosis, Edema, Normal pulses, Tenderness, Swelling Skin Exam: Positive: Nl turgor and temperature Neuro Exam: Positive: Normal Speech, Cranial Nerves 3-12 NL Psych Exam: Positive: Mental status NL, Mood NL, Memory Intact, Oriented x 3 Date of Service The patient was seen on 12/23/18. NOTE NAME: SKIP ESTRELLA DATE OF : 1975 AGE: 43 SEX: F REPORT #: [id number] ROOM: [address] TECHNOLOGIST: ABIODUN DOCTOR: NATALIE MCKEON DO Ordered for Date&Time: 12/16/18 1329 cc: [~ rep ct ivnm] Service Date&Time: 12/16/18 2141 EXAMINATION REQUESTED: MRI TIBIA WITHOUT CONTRAST RIGHT REASON FOR PATIENT VISIT: INFECTED ULCER OF SKIN REASON FOR EXAM/COMMENT: rule out osteo MRI RIGHT LOWER LEG: Multiple sequences obtained in the axial, coronal, and sagittal planes. There is a fracture of the distal third of the tibia with medial displacement. There is surrounding edema and fluid along the tibial shaft in this region. Ulceration is seen on the skin in the very distal aspect of the lower leg laterally. There is adjacent edema and probable cellulitis. Adjacent distal fibula appears destroyed and I suspect osteomyelitis at that location. The distal margin of the fibula is irregular and there appears to be periosteal reaction. The adjacent distal tibia demonstrates heterogeneous low signal on T1 and high signal on T2 and there may be involvement of the distal end of the tibia by osteomyelitis as well. IMPRESSION: Soft tissue ulcer with edema and cellulitis distal lower leg laterally. The adjacent distal fibula appears destroyed secondary to osteomyelitis. There may also be involvement of the adjacent distal tibia. There is an oblique fracture of the distal third of the tibia with surrounding edema and fluid along the tibial shaft. Electronically Signed by Elmer Godinez MD 12/19/2018 05:37 P NAME: SKIP ESTRELLA DATE OF : 1975 AGE: 43 SEX: F REPORT #: [id number] ROOM: [address] TECHNOLOGIST: ABIODUN DOCTOR: LOVE PETERS MD Ordered for Date&Time: 12/16/18 1465 cc: [~ rep ct ivnm] Service Date&Time: 12/16/18 1253 EXAMINATION REQUESTED: MRI FOOT WITHOUT CONTRAST RIGHT REASON FOR PATIENT VISIT: INFECTED ULCER OF SKIN REASON FOR EXAM/COMMENT: r/o OM MRI RIGHT FOOT WITHOUT CONTRAST: HISTORY: Rule out osteomyelitis. Comparison right foot radiographs December 15, 2018. TECHNIQUE: Axial coronal and sagittal T1- and T2-weighted scans were obtained. Scan quality is inhibited by less than optimal positioning. The patient's acute fractures. Comparison radiographs of the ankle December 15, 2018 show what appear to be subacute fractures of the distal tibia and fibula. The ankle and hindfoot appear to be fused. MRI FINDINGS: There is marked diffuse dorsal swelling over the forefoot, and to a lesser extent, diffuse swelling is seen at the midfoot and ankle level. There is heterogeneous fluid across the distal tibial and distal fibular fracture sites. There is no definite abscess. Cortical and medullary bone signal intensity are normal in the phalanges, metatarsals, and tarsal bones. Abnormal signal intensity is seen in the distal fibula and distal tibia. Dermal thickening and irregularity is seen in the dorsal forefoot soft tissues. IMPRESSION: Marked diffuse forefoot swelling particularly dorsally. There is no MR evidence of acute osteomyelitis. Subacute or acute fractures of the distal tibia and fibula are noted. Previous tibiotalar, fibulotalar, and hindfoot fusion. Electronically Signed by Emir Chang MD 12/16/2018 03:53 P Assessment/Plan Assessment 43-year-old female with nonhealing wounds of the right lower extremity with osteomyelitis of the fibula and fracture with possible osteomyelitis of the tibia. Plan Patient is nonambulatory and has nonhealing ulcers, tibial fracture, fibula osteomyelitis with possible tibia ostomy myelitis at the fracture site. Patient will require an above-knee amputation with possible disarticulation at the knee. Dean Altamirano MD Dec 19, 2018 22:50
[2018-12-20] MEDS: NS 1,000 ML IV SCH ×2 (02:33→13:40)
[2018-12-20] MEDS: HEPARIN SOD (PORCINE) 5000 UNITS/ML VIAL SC SCH ×3 (05:39→21:29)
[2018-12-20] MEDS: LEVOTHYROXINE 137MCG TABLET (0.137MG) PO SCH (05:39)
[2018-12-20 06:00] VITALS: BP 131/71
[2018-12-20 06:59] LABS: HEMATOCRIT 31.4 % (36.0-47.0); HEMOGLOBIN 9.3 g/dl (12.0-15.5); MEAN CORPUSCULAR HEMOGLOBIN 23.2 pg (27.0-33.0); MEAN CORPUSCULAR HGB CONC 29.6 g/dl (32.0-36.5); MEAN CORPUSCULAR VOLUME 78.3 fl (80.0-96.0); PLATELET COUNT, AUTOMATED 612 10^3/uL (150-450); RED BLOOD COUNT 4.01 10^6/uL (4.00-5.40); WHITE BLOOD COUNT 9.4 10^3/uL (4.0-10.0)
[2018-12-20 08:14] LABS: BLOOD UREA NITROGEN 10 MG/DL (7-18); C REACTIVE PROTEIN QUANTITATIV 1.09 MG/DL (0.00-0.30); CALCIUM LEVEL 8.1 MG/DL (8.5-10.1); CARBON DIOXIDE LEVEL 27 MEQ/L (21-32); CHLORIDE LEVEL 105 MEQ/L (98-107); CREATININE FOR GFR 0.42 MG/DL (0.55-1.30); GLOMERULAR FILTRATION RATE > 60.0 (>58); GLUCOSE, FASTING 139 MG/DL (70-100); SODIUM LEVEL 139 MEQ/L (136-145)
[2018-12-20] MEDS: SANTYL OINT 30GM TOP SCH (09:00)
[2018-12-20] MEDS: ZINC SULFATE 220 MG CAP PO SCH (09:01)
[2018-12-20] MEDS: FOLIC ACID 1 MG TAB PO SCH (09:01)
[2018-12-20] MEDS: hydroCHLOROthiazide 25 MG TAB PO SCH (09:01)
[2018-12-20] MEDS: MULTIVITAMINS/MINERALS THERAP 1 TAB PO SCH (09:01)
[2018-12-20] MEDS: ATORVASTATIN 10 MG TAB PO SCH (09:01)
[2018-12-20] MEDS: ASCORBIC ACID 500 MG TAB PO SCH (09:01)
[2018-12-20 09:30] VITALS: BP 118/62
[2018-12-20 14:00] VITALS: BP 135/64
--- NOTE | 2018-12-20 16:30 | IPNPDOC ---
Subjective Date Seen The patient was seen on 12/20/18. Subjective Chief Complaint/HPI Patient seen and examined at bedside. Extensive discussion held about the need for the patient to have an [id number] amputation for definitive treatment of her tibial/fibular fracture. Which if left as is, increases her susceptibility to infection and possibly complications which include but are not limited to sepsis, . The patient verbalized understanding of the same, and states that she is still deciding on what she would like to do. Objective Physical Examination General Exam: Positive: Alert, Cooperative, No Acute Distress ENT Exam: Positive: Atraumatic, Mucous membr. moist/pink Neck Exam: Negative: JVD Chest Exam: Positive: Clear to auscultation, Normal air movement Heart Exam: Positive: Rate Normal, Normal S1, Normal S2 Abdomen Exam: Positive: Soft; Negative: Tenderness Extremity Exam: Positive: Other (right lower extremity noted to be wrapped in surgical dressing.) Assessment /Plan Plan/VTE VTE Prophylaxis Ordered?: Yes Plan Right tibial/fibular fracture with open wound. patient account specialist consulted, amputation recommended. Patient refused amputation. Patient is not able to tolerate cast. Consulted Vascular surgery, Dr. Altamirano and he has also discussed the need for amputation with the patient Dr. Jacobo wound consult appreciated Extensively discussed the risks, benefits, and alternative options available regarding further management with the patient. The patient has verbalized understanding the same, and notes that she is still deciding on how to further proceed. Infected right lower extremity ulcer s/p debridement with clinical reimbursement specialist, Dr. Jacobo, in the outpatient setting. Wound culture were done in the outpatient setting showed group G S treptococcus. MRI of the foot did not suggest osteomyelitis. Continue IV antibiotic Spinal bifida, status post spinal bifida surgery Hypothyroidism On Synthroid. Hypertension. Continue hydrochlorothiazide. Deep venous thrombosis (DVT) prophylaxis Heparin SC VS, I&O, 24H, Fishbone Vital Signs/I&O Vital Signs Date Time Temp Pulse Resp B/P (MAP) Pulse Ox O2 Delivery O2 Flow Rate FiO2 12/20/18 09:30 98.2 98 20 118/62 (80) 96 12/16/18 00:47 Room Air I&O- Last 24 Hours up to 6 AM 12/20/18 06:00 Intake Total 1090 ml Balance 1090 ml Laboratory Data 24H LABS Laboratory Tests 2 12/20/18 06:39: Nucleated Red Blood Cells % (auto) 0.0, Anion Gap 7L, Glomerular Filtration Rate > 60.0, Blood Urea Nitrogen 10, Creatinine 0.42L, Sodium Level 139, Potassium Level 4.0, Chloride Level 105, Carbon Dioxide Level 27, Calcium Level 8.1L, C- Reactive Protein, Quantitative 1.09H CBC/BMP Laboratory Tests 12/20/18 06:39 Red Blood Count 4.01, Mean Corpuscular Volume 78.3 L, Mean Corpuscular Hemoglobin 23.2 L, Mean Corpuscular Hemoglobin Concent 29.6 L, Red Cell Distribution Width 17.9 H, Calcium Level 8.1 L Microbiology Microbiology 12/15/18 Blood Culture - Preliminary, Resulted No Growth after 72 hours. All specime... 12/15/18 Blood Culture - Preliminary, Resulted No Growth after 72 hours. All specime... 12/17/18 MRSA Screen - Final, Complete JONAH LARSON MD Dec 20, 2018 16:30
[2018-12-20] MEDS: cefTRIAXone SOD 1 GM in D5W MINI-BAG PLUS 50 ML IV SCH (17:08)
[2018-12-20 22:00] VITALS: BP 118/60
[2018-12-21 06:00] VITALS: BP 113/61
[2018-12-21] MEDS: HEPARIN SOD (PORCINE) 5000 UNITS/ML VIAL SC SCH ×3 (06:00→22:00)
[2018-12-21] MEDS: LEVOTHYROXINE 137MCG TABLET (0.137MG) PO SCH (06:20)
[2018-12-21] MEDS: NS 1,000 ML IV SCH ×2 (06:20→11:14)
[2018-12-21 07:20] LABS: HEMATOCRIT 30.6 % (36.0-47.0); MEAN CORPUSCULAR HEMOGLOBIN 23.1 pg (27.0-33.0); MEAN CORPUSCULAR HGB CONC 29.4 g/dl (32.0-36.5); MEAN CORPUSCULAR VOLUME 78.7 fl (80.0-96.0); PLATELET COUNT, AUTOMATED 555 10^3/uL (150-450); RED BLOOD COUNT 3.89 10^6/uL (4.00-5.40); WHITE BLOOD COUNT 8.4 10^3/uL (4.0-10.0)
[2018-12-21 08:00] LABS: BLOOD UREA NITROGEN 10 MG/DL (7-18); CALCIUM LEVEL 8.3 MG/DL (8.5-10.1); CARBON DIOXIDE LEVEL 28 MEQ/L (21-32); CHLORIDE LEVEL 106 MEQ/L (98-107); CREATININE FOR GFR 0.43 MG/DL (0.55-1.30); GLOMERULAR FILTRATION RATE > 60.0 (>58); GLUCOSE, FASTING 132 MG/DL (70-100); POTASSIUM SERUM 3.8 MEQ/L (3.5-5.1); SODIUM LEVEL 140 MEQ/L (136-145)
[2018-12-21] MEDS: ATORVASTATIN 10 MG TAB PO SCH (09:50)
[2018-12-21] MEDS: ZINC SULFATE 220 MG CAP PO SCH (09:50)
[2018-12-21] MEDS: FOLIC ACID 1 MG TAB PO SCH (09:51)
[2018-12-21] MEDS: MULTIVITAMINS/MINERALS THERAP 1 TAB PO SCH (09:51)
[2018-12-21] MEDS: hydroCHLOROthiazide 25 MG TAB PO SCH (09:51)
[2018-12-21] MEDS: ASCORBIC ACID 500 MG TAB PO SCH (09:51)
[2018-12-21 14:00] VITALS: BP 144/84
--- NOTE | 2018-12-21 15:25 | IPNPDOC ---
Subjective Date Seen The patient was seen on 12/21/18. Subjective Chief Complaint/HPI Patient seen and examined at the bedside. No acute overnight events noted. Patient still deliberating about options regarding amputation. Objective Physical Examination General Exam: Positive: Alert, Cooperative, No Acute Distress ENT Exam: Positive: Atraumatic, Mucous membr. moist/pink Neck Exam: Negative: JVD Chest Exam: Positive: Clear to auscultation, Normal air movement Heart Exam: Positive: Rate Normal, Normal S1, Normal S2 Abdomen Exam: Positive: Soft; Negative: Tenderness Extremity Exam: Positive: Other (right lower extremity noted to be wrapped in surgical dressing.) Assessment /Plan Plan/VTE VTE Prophylaxis Ordered?: Yes Plan Right tibial/fibular fracture with open wound. housing specialist consulted, amputation recommended. Patient refused amputation. Patient is not a surgical intervention candidate and will not be able to tolerate cast. Consulted Vascular surgery, Dr. Altamirano and he has also discussed the need for amputation with the patient Dr. Jacobo wound consult appreciated Extensively discussed the risks, benefits, and alternative options available regarding further management with the patient. The patient has verbalized understanding the same, and notes that she is still deciding on how to further proceed. Infected right lower extremity ulcer s/p debridement with senior communications specialist, Dr. Jacobo, in the outpatient setting. Wound culture were done in the outpatient setting showed group G Streptococcus. MRI of the foot did not suggest osteomyelitis. Continue IV antibiotic Spinal bifida, status post spinal bifida surgery Hypothyroidism On Synthroid. Hypertension. Continue hydrochlorothiazide. Deep venous thrombosis (DVT) prophylaxis Heparin SC VS, I&O, 24H, Fishbone Vital Signs/I&O Vital Signs Date Time Temp Pulse Resp B/P (MAP) Pulse Ox O2 Delivery O2 Flow Rate FiO2 12/21/18 06:00 98.1 95 16 113/61 (78) 97 12/16/18 00:47 Room Air I&O- Last 24 Hours up to 6 AM 12/21/18 06:00 Intake Total 2240 ml Balance 2240 ml Laboratory Data 24H LABS Laboratory Tests 2 12/21/18 06:58: Nucleated Red Blood Cells % (auto) 0.0, Anion Gap 6L, Glomerular Filtration Rate > 60.0, Blood Urea Nitrogen 10, Creatinine 0.43L, Sodium Level 140, Potassium Level 3.8, Chloride Level 106, Carbon Dioxide Level 28, Calcium Level 8.3L, C- Reactive Protein, Quantitative 0.80H CBC/BMP Laboratory Tests 12/21/18 06:58 Red Blood Count 3.89 L, Mean Corpuscular Volume 78.7 L, Mean Corpuscular Hemoglobin 23.1 L, Mean Corpuscular Hemoglobin Concent 29.4 L, Red Cell Distribution Width 18.4 H, Calcium Level 8.3 L Microbiology Microbiology 12/15/18 Blood Culture - Final, Complete NO GROWTH AFTER 5 DAYS 12/15/18 Blood Culture - Final, Complete NO GROWTH AFTER 5 DAYS 12/17/18 MRSA Screen - Final, Complete JONAH LARSON MD Dec 21, 2018 15:25
[2018-12-21] MEDS: SANTYL OINT 30GM TOP SCH (15:39)
[2018-12-21] MEDS: cefTRIAXone SOD 1 GM in D5W MINI-BAG PLUS 50 ML IV SCH (16:32)
[2018-12-21 22:00] VITALS: BP 126/60
[2018-12-22] MEDS: HEPARIN SOD (PORCINE) 5000 UNITS/ML VIAL SC SCH ×3 (05:47→21:48)
[2018-12-22] MEDS: LEVOTHYROXINE 137MCG TABLET (0.137MG) PO SCH (05:47)
[2018-12-22 06:00] VITALS: BP 127/74
[2018-12-22 07:08] LABS: HEMATOCRIT 31.1 % (36.0-47.0); HEMOGLOBIN 9.3 g/dl (12.0-15.5); MEAN CORPUSCULAR HEMOGLOBIN 23.5 pg (27.0-33.0); MEAN CORPUSCULAR HGB CONC 29.9 g/dl (32.0-36.5); MEAN CORPUSCULAR VOLUME 78.5 fl (80.0-96.0); PLATELET COUNT, AUTOMATED 522 10^3/uL (150-450); RED BLOOD COUNT 3.96 10^6/uL (4.00-5.40); WHITE BLOOD COUNT 8.7 10^3/uL (4.0-10.0)
[2018-12-22 07:27] LABS: BLOOD UREA NITROGEN 10 MG/DL (7-18); CALCIUM LEVEL 8.9 MG/DL (8.5-10.1); CARBON DIOXIDE LEVEL 30 MEQ/L (21-32); CHLORIDE LEVEL 103 MEQ/L (98-107); CREATININE FOR GFR 0.47 MG/DL (0.55-1.30); GLOMERULAR FILTRATION RATE > 60.0 (>58); GLUCOSE, FASTING 166 MG/DL (70-100); SODIUM LEVEL 139 MEQ/L (136-145)
[2018-12-22 09:10] VITALS: BP 128/70
[2018-12-22] MEDS: ATORVASTATIN 10 MG TAB PO SCH (09:36)
[2018-12-22] MEDS: ASCORBIC ACID 500 MG TAB PO SCH (09:36)
[2018-12-22] MEDS: hydroCHLOROthiazide 25 MG TAB PO SCH (09:37)
[2018-12-22] MEDS: ZINC SULFATE 220 MG CAP PO SCH (09:37)
[2018-12-22] MEDS: FOLIC ACID 1 MG TAB PO SCH (09:37)
[2018-12-22] MEDS: SANTYL OINT 30GM TOP SCH (09:39)
[2018-12-22] MEDS: MULTIVITAMINS/MINERALS THERAP 1 TAB PO SCH (09:47)
[2018-12-22] MEDS: cefTRIAXone SOD 1 GM in D5W MINI-BAG PLUS 50 ML IV SCH (16:23)
--- NOTE | 2018-12-22 16:24 | IPNPDOC ---
Subjective Date Seen The patient was seen on 12/22/18. Subjective Chief Complaint/HPI Patient seen and examined at the bedside. She is scheduled to meet with a amputee patient of Dr. Altamirano's today to get more information about the p rocess/procedure. She has still yet to make a decision on whether she would want an amputation. Objective Physical Examination General Exam: Positive: Alert, Cooperative, No Acute Distress ENT Exam: Positive: Atraumatic, Mucous membr. moist/pink Neck Exam: Negative: JVD Chest Exam: Positive: Clear to auscultation, Normal air movement Heart Exam: Positive: Rate Normal, Normal S1, Normal S2 Abdomen Exam: Positive: Soft; Negative: Tenderness Extremity Exam: Positive: Other (right lower extremity noted to be wrapped in surgical dressing.) Assessment /Plan Plan/VTE VTE Prophylaxis Ordered?: Yes Plan Right tibial/fibular fracture with open wound. instructional specialist consulted, amputation recommended. Patient refused amputation. Patient is not a surgical intervention candidate and will not be able to tolerate cast. Consulted Vascular surgery, Dr. Altamirano and he has also discussed the need for amputation with the patient Dr. Jacobo wound consult appreciated Extensively discussed the risks, benefits, and alternative options available regarding further management with the patient. The patient and her family has verbalized understanding the same, and notes that she is still deciding on how to further proceed. Infected right lower extremity ulcer s/p debridement with preventive medicine specialist, Dr. Jacobo, in the outpatient setting. Wound culture were done in the outpatient setting showed group G Streptococcus. MRI of the foot did not suggest osteomyelitis. Continue IV antibiotic Spinal bifida, status post spinal bifida surgery Hypothyroidism On Synthroid. Hypertension. Continue hydrochlorothiazide. Deep venous thrombosis (DVT) prophylaxis Heparin SC VS, I&O, 24H, Fishbone Vital Signs/I&O Vital Signs Date Time Temp Pulse Resp B/P (MAP) Pulse Ox O2 Delivery O2 Flow Rate FiO2 12/22/18 09:10 97.3 90 20 128/70 (89) 97 12/16/18 00:47 Room Air I&O- Last 24 Hours up to 6 AM 12/22/18 06:00 Intake Total 1910 ml Balance 1910 ml Laboratory Data 24H LABS Laboratory Tests 2 12/22/18 06:39: Nucleated Red Blood Cells % (auto) 0.0, Anion Gap 6L, Glomerular Filtration Rate > 60.0, Blood Urea Nitrogen 10, Creatinine 0.47L, Sodium Level 139, Potassium Level 4.0, Chloride Level 103, Carbon Dioxide Level 30, Calcium Level 8.9 CBC/BMP Laboratory Tests 12/22/18 06:39 Red Blood Count 3.96 L, Mean Corpuscular Volume 78.5 L, Mean Corpuscular Hemog lobin 23.5 L, Mean Corpuscular Hemoglobin Concent 29.9 L, Red Cell Distribution Width 18.5 H, Calcium Level 8.9 Microbiology Microbiology 12/15/18 Blood Culture - Final, Complete NO GROWTH AFTER 5 DAYS 12/15/18 Blood Culture - Final, Complete NO GROWTH AFTER 5 DAYS 12/17/18 MRSA Screen - Final, Complete JONAH LARSON MD Dec 22, 2018 16:24
[2018-12-22 22:00] VITALS: BP 114/57
[2018-12-23] MEDS: HEPARIN SOD (PORCINE) 5000 UNITS/ML VIAL SC SCH ×3 (05:41→22:00)
[2018-12-23] MEDS: LEVOTHYROXINE 137MCG TABLET (0.137MG) PO SCH (05:42)
[2018-12-23 06:00] VITALS: BP 121/68
[2018-12-23 08:55] LABS: HEMATOCRIT 31.2 % (36.0-47.0); HEMOGLOBIN 9.4 g/dl (12.0-15.5); MEAN CORPUSCULAR HEMOGLOBIN 23.2 pg (27.0-33.0); MEAN CORPUSCULAR HGB CONC 30.1 g/dl (32.0-36.5); PLATELET COUNT, AUTOMATED 535 10^3/uL (150-450); RED BLOOD COUNT 4.05 10^6/uL (4.00-5.40); WHITE BLOOD COUNT 8.5 10^3/uL (4.0-10.0)
[2018-12-23 09:18] LABS: BLOOD UREA NITROGEN 12 MG/DL (7-18); CALCIUM LEVEL 9.3 MG/DL (8.5-10.1); CARBON DIOXIDE LEVEL 29 MEQ/L (21-32); CHLORIDE LEVEL 101 MEQ/L (98-107); CREATININE FOR GFR 0.44 MG/DL (0.55-1.30); GLOMERULAR FILTRATION RATE > 60.0 (>58); GLUCOSE, FASTING 142 MG/DL (70-100); POTASSIUM SERUM 4.3 MEQ/L (3.5-5.1); SODIUM LEVEL 138 MEQ/L (136-145)
[2018-12-23] MEDS: FOLIC ACID 1 MG TAB PO SCH (09:52)
[2018-12-23] MEDS: SANTYL OINT 30GM TOP SCH (09:52)
[2018-12-23] MEDS: hydroCHLOROthiazide 25 MG TAB PO SCH (09:52)
[2018-12-23] MEDS: ZINC SULFATE 220 MG CAP PO SCH (09:52)
[2018-12-23] MEDS: ASCORBIC ACID 500 MG TAB PO SCH (09:52)
[2018-12-23] MEDS: ATORVASTATIN 10 MG TAB PO SCH (09:52)
[2018-12-23] MEDS: MULTIVITAMINS/MINERALS THERAP 1 TAB PO SCH (09:52)
[2018-12-23 14:00] VITALS: BP 141/80
[2018-12-23] MEDS: cefTRIAXone SOD 1 GM in D5W MINI-BAG PLUS 50 ML IV SCH (15:13)
--- NOTE | 2018-12-23 15:14 | IPNPDOC ---
Subjective Date Seen The patient was seen on 12/23/18. Subjective Chief Complaint/HPI Patient seen and examined at bedside. She reports that she has decided on getting her right lower extremity amputated by vascular surgery. She is tentatively scheduled to have the procedure done tomorrow with vascular surgery. Objective Physical Examination General Exam: Positive: Alert, Cooperative, No Acute Distress ENT Exam: Positive: Atraumatic, Mucous membr. moist/pink Neck Exam: Negative: JVD Chest Exam: Positive: Clear to auscultation, Normal air movement Heart Exam: Positive: Rate Normal, Normal S1, Normal S2 Abdomen Exam: Positive: Soft; Negative: Tenderness Extremity Exam: Positive: Other (right lower extremity noted to be wrapped in surgical dressing.) Assessment /Plan Plan/VTE VTE Prophylaxis Ordered?: Yes Plan Right tibial/fibular fracture with open wound. erp specialist consulted, amputation recommended. Patient initially refused amputation. Patient is not a surgical intervention candidate and will not be able to tolerate cast. Consulted Vascular surgery, Dr. Altamirano and he has also discussed the need for amputation with the patient Dr. Jacobo wound consult appreciated Patient has decided to undergo amputation, she is tentatively scheduled for the OR tomorrow with Vascular Surgery NPO after midnight Infected right lower extremity ulcer s/p debridement with compound specialist, Dr. Jacobo, in the outpatient setting. Wound culture were done in the outpatient setting showed group G Streptococcus. MRI of the foot did not suggest osteomyelitis. Continue IV antibiotic Spinal bifida, status post spinal bifida surgery Hypothyroidism On Synthroid. Hypertension. Continue hydrochlorothiazide. 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 Jacobo as outpatient Deep venous thrombosis (DVT) prophylaxis Heparin SC VS, I&O, 24H, Lj Vital Signs/I&O Vital Signs Date Time Temp Pulse Resp B/P (MAP) Pulse Ox O2 Delivery O2 Flow Rate FiO2 12/23/18 06:00 98.1 86 20 121/68 (85) 96 I&O- Last 24 Hours up to 6 AM 12/23/18 06:00 Intake Total 1896 ml Output Total 0 ml Balance 1896 ml Laboratory Data 24H LABS Laboratory Tests 2 12/23/18 08:17: Nucleated Red Blood Cells % (auto) 0.0, Anion Gap 8, Glomerular Filtration Rate > 60.0, Blood Urea Nitrogen 12, Creatinine 0.44L, Sodium Level 138, Potassium Level 4.3, Chloride Level 101, Carbon Dioxide Level 29, Calcium Level 9.3 CBC/BMP Laboratory Tests 12/23/18 08:17 Red Blood Count 4.05, Mean Corpuscular Volume 77.0 L, Mean Corpuscular Hemoglobin 23.2 L, Mean Corpuscular Hemoglobin Concent 30.1 L, Red Cell Distribution Width 18.7 H, Calcium Level 9.3 Microbiology Microbiology 12/15/18 Blood Culture - Final, Complete NO GROWTH AFTER 5 DAYS 12/15/18 Blood Culture - Final, Complete NO GROWTH AFTER 5 DAYS 12/17/18 MRSA Screen - Final, Complete JONAH LARSON MD Dec 23, 2018 15:14
[2018-12-23 22:00] VITALS: BP 134/65
--- NOTE | 2018-12-23 23:14 | IPNPDOC ---
Subjective General Date/Time Seen The patient was seen on 12/23/18 at 16:10. Subject Chief Complaint/History The patient is a 43-year-old female with nonhealing right lower extremity wounds, tibial fracture with possible osteomyelitis of the distal and proximal tibial fracture site and osteomyelitis of the fibula. Patient has no complaints. Current Medications Current Medications Current Medications Ascorbic Acid (Vitamin C) 500 mg DAILY PO Last administered on 12/23/18 09:52; Start 12/16/18 at 09:00 Atorvastatin Calcium (Lipitor) 10 mg DAILY PO Last administered on 12/23/18 09:52; Start 12/16/18 at 09:00 Cefepime HCl 1 gm/ Dextrose 50 ml @ 100 mls/hr Q12H IV ; Start 12/16/18 at 01:00; Stop 12/16/18 at 02:42; Status DC Cefepime HCl 1 gm/ Dextrose 50 ml @ 100 mls/hr Q12H IV Last administered on 12/18/18at 16:54; Start 12/16/18 at 04:00; Stop 12/18/18 at 19:52; Status DC Ceftriaxone Sodium 1 gm/ Dextrose 50 ml @ 100 mls/hr Q24H IV Last administered on 12/23/18at 15:13; Start 12/19/18 at 16:00 Cod Liver Oil/ Zinc Oxide (Desitin) 1 dose WDC PRN TOP EACH DRESSING CHANGE; Start 12/19/18 at 13:30 Collagenase (Santyl) 1 dose DAILY TOP Last administered on 12/23/18 09:52; Start 12/16/18 at 09:00 Folic Acid (Folic Acid) 1 mg DAILY PO Last administered on 12/23/18 09:52; Start 12/16/18 at 09:00 Heparin Sodium (Porcine) (Heparin) 5,000 units Q8H SC Last administered on 12/16/18at 22:27; Start 12/16/18 at 06:00 Home Med (Med Rec Complete!) ASDIRECTED XX ; Start 12/15/18 at 18:00; Stop 12/15/18 at 18:00; Status DC Hydrochlorothiazide (Hydrodiuril) 25 mg DAILY PO Last administered on 12/23/18 09:52; Start 12/16/18 at 09:00 Levothyroxine Sodium (Synthroid) 75 mcg DAILY@06 PO Last administered on 12/17/18 05:10; Start 12/16/18 at 06:00; Stop 12/17/18 at 19:52; Status DC Levothyroxine Sodium (Synthroid) 100 mcg DAILY@06 PO Last administered on 12/17/18 05:10; Start 12/16/18 at 06:00; Stop 12/17/18 at 19:52; Status DC Levothyroxine Sodium (Synthroid) 137 mcg DAILY@06 PO Last administered on 12/23/18 05:42; Start 12/18/18 at 06:00 Metronidazole 500 mg/IV Miscellaneous Supplies 100 ml @ 100 mls/hr Q8H IV Last administered on 12/18/18 16:55; Start 12/16/18 at 00:00; Stop 12/18/18 at 19:52; Status DC Multivitamins (Theragram-M) 1 tab DAILY PO Last administered on 12/23/18 09:52; Start 12/16/18 at 09:00 Ondansetron HCl (ZOFRAN INJection) 4 mg Q6HP PRN IV NAUSEA OR VOMITING; Start 12/15/18 at 22:30 Oxycodone/ Acetaminophen (Percocet 5mg/ 325mg Tablet) 1 tab Q8HP PRN PO MODERATE PAIN (PS 5-7) Last administered on 12/17/18 09:04; Start 12/15/18 at 22:30 Sodium Chloride 1,000 ml @ 90 mls/hr Q11H7M IV Last administered on 12/21/18 11:14; Start 12/15/18 at 22:30; Stop 12/21/18 at 12:47; Status DC Vancomycin HCl 1000 mg/IV Miscellaneous Supplies 1 each/ Dextrose 270 ml @ 270 mls/hr Q12H IV Last administered on 12/19/18 14:10; Start 12/16/18 at 03:00; Stop 12/19/18 at 14:23; Status DC Zinc Sulfate (Zinc Sulfate) 220 mg DAILY PO Last administered on 12/23/18 09:52; Start 12/16/18 at 09:00 Allergies Coded Allergies: Sulfa Drugs (Verified Allergy, Intermediate, HIVES, 01/17/13) Sulfa Drugs Cross Reactors (Verified Allergy, Intermediate, HIVES, 01/17/13) Sulfamethoxazole (Verified Allergy, Intermediate, HIVES, 01/17/13) Sulfamethoxazole w/Trimethoprim (Verified Allergy, Intermediate, rash,hives,itching, 11/07/15) Trimethoprim (Verified Allergy, Intermediate, HIVES, 01/17/13) VITAL SIGNS VITAL SIGNS Vital Signs Date Time Temp Pulse Resp B/P (MAP) Pulse Ox O2 Delivery O2 Flow Rate FiO2 12/23/18 14:00 97.5 100 18 141/80 (100) 97 12/23/18 06:00 98.1 86 20 121/68 (85) 96 Intake & Output 12/23/18 06:00 Intake Total 1896 ml Output Total 0 ml Balance 1896 ml Laboratory Tests 12/23/18 08:17: White Blood Count 8.5, Red Blood Count 4.05, Hemoglobin 9.4L, Hematocrit 31.2L, Mean Corpuscular Volume 77.0L, Mean Corpuscular Hemoglobin 23.2L, Mean Corpusc ular Hemoglobin Concent 30.1L, Red Cell Distribution Width 18.7H, Platelet Count 535H, Nucleated Red Blood Cells % (auto) 0.0, Blood Urea Nitrogen 12, Creatinine 0.44L, Sodium Level 138, Potassium Level 4.3, Chloride Level 101, Carbon Dioxide Level 29, Calcium Level 9.3, Anion Gap 8, Glomerular Filtration Rate > 60.0, Fasting Glucose 142H Microbiology 12/15/18 Blood Culture - Final, Complete NO GROWTH AFTER 5 DAYS 12/15/18 Blood Culture - Final, Complete NO GROWTH AFTER 5 DAYS 12/17/18 MRSA Screen - Final, Complete Current Medications Medications (Trade) Dose Ordered Sig/Shyanne Route PRN Reason Start Time Stop Time Status Last Admin Dose Admin Ascorbic Acid (Vitamin C) 500 mg DAILY PO 12/16/18 09:00 12/23/18 09:52 Atorvastatin Calcium (Lipitor) 10 mg DAILY PO 12/16/18 09:00 12/23/18 09:52 Ceftriaxone Sodium 1 gm/ Dextrose 50 ml @ 100 mls/hr Q24H IV 12/19/18 16:00 12/23/18 15:13 Collagenase (Santyl) 1 dose DAILY TOP 12/16/18 09:00 12/23/18 09:52 Folic Acid (Folic Acid) 1 mg DAILY PO 12/16/18 09:00 12/23/18 09:52 Heparin Sodium (Porcine) (Heparin) 5,000 units Q8H SC 12/16/18 06:00 12/16/18 22:27 Hydrochlorothiazide (Hydrodiuril) 25 mg DAILY PO 12/16/18 09:00 12/23/18 09:52 Levothyroxine Sodium (Synthroid) 137 mcg DAILY@06 PO 12/18/18 06:00 12/23/18 05:42 Multivitamins (Theragram-M) 1 tab DAILY PO 12/16/18 09:00 12/23/18 09:52 Oxycodone/ Acetaminophen (Percocet 5mg/ 325mg Tablet) 1 tab Q8HP PRN PO MODERATE PAIN (PS 5-7) 12/15/18 22:30 12/17/18 09:04 Zinc Sulfate (Zinc Sulfate) 220 mg DAILY PO 12/16/18 09:00 12/23/18 09:52 Laboratory Tests 12/22/18 06:39 Red Blood Count 3.96 L, Mean Corpuscular Volume 78.5 L, Mean Corpuscular Hemoglobin 23.5 L, Mean Corpuscular Hemoglobin Concent 29.9 L, Red Cell Distribution Width 18.5 H, Calcium Level 8.9 12/23/18 08:17 Red Blood Count 4.05, Mean Corpuscular Volume 77.0 L, Mean Corpuscular Hemoglobin 23.2 L, Mean Corpuscular Hemoglobin Concent 30.1 L, Red Cell Distribution Width 18.7 H, Calcium Level 9.3 Microbiology 12/15/18 Blood Culture - Final, Complete NO GROWTH AFTER 5 DAYS 12/15/18 Blood Culture - Final, Complete NO GROWTH AFTER 5 DAYS 12/17/18 MRSA Screen - Final, Complete Objective Physical Examination General Exam: Positive: Alert, Cooperative, No Acute Distress ENT Exam: Positive: Atraumatic, Mucous membr. moist/pink Neck Exam: Negative: JVD Chest Exam: Positive: Clear to auscultation, Normal air movement Heart Exam: Positive: Rate Normal, Normal S1, Normal S2 Abdomen Exam: Positive: Soft; Negative: Tenderness Extremity Exam: Positive: Other (right lower extremity noted to be wrapped in surgical dressing.) Assessment/Plan Assessment Patient is a 43-year-old female with nonhealing right lower extremity calf and foot wounds as well as tibial fracture with osteomyelitis of the fibula and poss ible osteomyelitis of the tibia at the fracture site. Patient has agreed to proceed with right knee disarticulation with possible right above-knee amputation. Plan Plan for right knee disarticulation and/or possible right above-knee amputation on 12/24/2018. Dean Altamirano MD Dec 23, 2018 23:14
[2018-12-24] VITALS (8 sets, daily range): BP systolic 93–135; BP diastolic 52–66
[2018-12-24] MEDS: HEPARIN SOD (PORCINE) 5000 UNITS/ML VIAL SC SCH ×3 (06:00→22:00)
[2018-12-24] MEDS: LEVOTHYROXINE 137MCG TABLET (0.137MG) PO SCH (06:00)
[2018-12-24 07:02] LABS: HEMATOCRIT 33.5 % (36.0-47.0); HEMOGLOBIN 10.2 g/dl (12.0-15.5); MEAN CORPUSCULAR HEMOGLOBIN 23.3 pg (27.0-33.0); MEAN CORPUSCULAR HGB CONC 30.4 g/dl (32.0-36.5); MEAN CORPUSCULAR VOLUME 76.7 fl (80.0-96.0); PLATELET COUNT, AUTOMATED 511 10^3/uL (150-450); RED BLOOD COUNT 4.37 10^6/uL (4.00-5.40)
[2018-12-24 07:33] LABS: ALBUMIN 2.8 GM/DL (3.2-5.2); ALT/SGPT 36 U/L (12-78); BILIRUBIN,TOTAL 0.5 MG/DL (0.2-1.0); BLOOD UREA NITROGEN 11 MG/DL (7-18); CARBON DIOXIDE LEVEL 28 MEQ/L (21-32); CHLORIDE LEVEL 100 MEQ/L (98-107); CREATININE FOR GFR 0.42 MG/DL (0.55-1.30); GLOMERULAR FILTRATION RATE > 60.0 (>58); GLUCOSE, FASTING 141 MG/DL (70-100); POTASSIUM SERUM 4.2 MEQ/L (3.5-5.1); SODIUM LEVEL 136 MEQ/L (136-145)
--- NOTE | 2018-12-24 13:39 | IPNPDOC ---
Subjective General Date/Time Seen The patient was seen on 12/24/18 at 13:37. Subject Chief Complaint/History The patient is a 43-year-old female admitted with a reason for visit of Infected Ulcer Of Skin. Current Medications Current Medications Current Medications Ascorbic Acid (Vitamin C) 500 mg DAILY PO Last administered on 12/23/18 09:52; Start 12/16/18 at 09:00 Atorvastatin Calcium (Lipitor) 10 mg DAILY PO Last administered on 12/23/18 09:52; Start 12/16/18 at 09:00 Cefepime HCl 1 gm/ Dextrose 50 ml @ 100 mls/hr Q12H IV ; Start 12/16/18 at 01:00; Stop 12/16/18 at 02:42; Status DC Cefepime HCl 1 gm/ Dextrose 50 ml @ 100 mls/hr Q12H IV Last administered on 12/18/18 16:54; Start 12/16/18 at 04:00; Stop 12/18/18 at 19:52; Status DC Ceftriaxone Sodium 1 gm/ Dextrose 50 ml @ 100 mls/hr Q24H IV Last administered on 12/23/18 15:13; Start 12/19/18 at 16:00 Cod Liver Oil/ Zinc Oxide (Desitin) 1 dose WDC PRN TOP EACH DRESSING CHANGE; Start 12/19/18 at 13:30 Collagenase (Santyl) 1 dose DAILY TOP Last administered on 12/23/18 09:52; Start 12/16/18 at 09:00 Folic Acid (Folic Acid) 1 mg DAILY PO Last administered on 12/23/18 09:52; Start 12/16/18 at 09:00 Heparin Sodium (Porcine) (Heparin) 5,000 units Q8H SC Last administered on 12/16/18 22:27; Start 12/16/18 at 06:00 Home Med (Med Rec Complete!) ASDIRECTED XX ; Start 12/15/18 at 18:00; Stop 12/15/18 at 18:00; Status DC Hydrochlorothiazide (Hydrodiuril) 25 mg DAILY PO Last administered on 12/23/18 09:52; Start 12/16/18 at 09:00 Levothyroxine Sodium (Synthroid) 75 mcg DAILY@06 PO Last administered on 12/17/18 05:10; Start 12/16/18 at 06:00; Stop 12/17/18 at 19:52; Status DC Levothyroxine Sodium (Synthroid) 100 mcg DAILY@06 PO Last administered on 12/17/18 05:10; Start 12/16/18 at 06:00; Stop 12/17/18 at 19:52; Status DC Levothyroxine Sodium (Synthroid) 137 mcg DAILY@06 PO Last administered on 12/24/18 06:00; Start 12/18/18 at 06:00 Metronidazole 500 mg/IV Miscellaneous Supplies 100 ml @ 100 mls/hr Q8H IV Last administered on 12/18/18 16:55; Start 12/16/18 at 00:00; Stop 12/18/18 at 19:52; Status DC Multivitamins (Theragram-M) 1 tab DAILY PO Last administered on 12/23/18 09:52; Start 12/16/18 at 09:00 Ondansetron HCl (ZOFRAN INJection) 4 mg Q6HP PRN IV NAUSEA OR VOMITING; Start 12/15/18 at 22:30 Oxycodone/ Acetaminophen (Percocet 5mg/ 325mg Tablet) 1 tab Q8HP PRN PO MODERATE PAIN (PS 5-7) Last administered on 12/17/18 09:04; Start 12/15/18 at 22:30 Sodium Chloride 1,000 ml @ 90 mls/hr Q11H7M IV Last administered on 12/21/18 11:14; Start 12/15/18 at 22:30; Stop 12/21/18 at 12:47; Status DC Vancomycin HCl 1000 mg/IV Miscellaneous Supplies 1 each/ Dextrose 270 ml @ 270 mls/hr Q12H IV Last administered on 12/19/18 14:10; Start 12/16/18 at 03:00; Stop 12/19/18 at 14:23; Status DC Zinc Sulfate (Zinc Sulfate) 220 mg DAILY PO Last administered on 12/23/18 09:52; Start 12/16/18 at 09:00 Allergies Coded Allergies: Sulfa Drugs (Verified Allergy, Intermediate, HIVES, 01/17/13) Sulfa Drugs Cross Reactors (Verified Allergy, Intermediate, HIVES, 01/17/13) Sulfamethoxazole (Verified Allergy, Intermediate, HIVES, 01/17/13) Sulfamethoxazole w/Trimethoprim (Verified Allergy, Intermediate, rash,hives,itching, 11/07/15) Trimethoprim (Verified Allergy, Intermediate, HIVES, 01/17/13) VITAL SIGNS VITAL SIGNS Vital Signs Date Time Temp Pulse Resp B/P (MAP) Pulse Ox O2 Delivery O2 Flow Rate FiO2 12/24/18 13:21 98.4 94 18 133/66 (88) 96 12/24/18 06:00 98.3 97 18 135/65 (88) 97 12/23/18 22:00 98.3 109 18 134/65 (88) 97 12/23/18 14:00 97.5 100 18 141/80 (100) 97 Intake & Output 12/24/18 06:00 Intake Total 1016 ml Balance 1016 ml Laboratory Tests 12/24/18 06:39: White Blood Count 9.0, Red Blood Count 4.37, Hemoglobin 10.2L, Hematocrit 33.5L, Mean Corpuscular Volume 76.7L, Mean Corpuscular Hemoglobin 23.3L, Mean Corpuscular Hemoglobin Concent 30.4L, Red Cell Distribution Width 18.6H, Plate let Count 511H, Nucleated Red Blood Cells % (auto) 0.0, Blood Urea Nitrogen 11, Creatinine 0.42L, Sodium Level 136, Potassium Level 4.2, Chloride Level 100, Carbon Dioxide Level 28, Calcium Level 9.0, Aspartate Amino Transf (AST/SGOT) 40H, Alanine Aminotransferase (ALT/SGPT) 36, Alkaline Phosphatase 149H, Total Bilirubin 0.5, Total Protein 8.0, Albumin 2.8L, Anion Gap 8, Glomerular Filtration Rate > 60.0, Fasting Glucose 141H, Albumin/Globulin Ratio 0.54L Microbiology 12/15/18 Blood Culture - Final, Complete NO GROWTH AFTER 5 DAYS 12/15/18 Blood Culture - Final, Complete NO GROWTH AFTER 5 DAYS 12/17/18 MRSA Screen - Final, Complete Current Medications Medications (Trade) Dose Ordered Sig/Shyanne Route PRN Reason Start Time Stop Time Status Last Admin Dose Admin Ascorbic Acid (Vitamin C) 500 mg DAILY PO 12/16/18 09:00 12/23/18 09:52 Atorvastatin Calcium (Lipitor) 10 mg DAILY PO 12/16/18 09:00 12/23/18 09:52 Ceftriaxone Sodium 1 gm/ Dextrose 50 ml @ 100 mls/hr Q24H IV 12/19/18 16:00 12/23/18 15:13 Collagenase (Santyl) 1 dose DAILY TOP 12/16/18 09:00 12/23/18 09:52 Folic Acid (Folic Acid) 1 mg DAILY PO 12/16/18 09:00 12/23/18 09:52 Heparin Sodium (Porcine) (Heparin) 5,000 units Q8H SC 12/16/18 06:00 12/16/18 22:27 Hydrochlorothiazide (Hydrodiuril) 25 mg DAILY PO 12/16/18 09:00 12/23/18 09:52 Levothyroxine Sodium (Synthroid) 137 mcg DAILY@06 PO 12/18/18 06:00 12/24/18 06:00 Multivitamins (Theragram-M) 1 tab DAILY PO 12/16/18 09:00 12/23/18 09:52 Oxycodone/ Acetaminophen (Percocet 5mg/ 325mg Tablet) 1 tab Q8HP PRN PO MODERATE PAIN (PS 5-7) 12/15/18 22:30 12/17/18 09:04 Zinc Sulfate (Zinc Sulfate) 220 mg DAILY PO 12/16/18 09:00 12/23/18 09:52 Laboratory Tests 12/23/18 08:17 Red Blood Count 4.05, Mean Corpuscular Volume 77.0 L, Mean Corpuscular Hemoglobin 23.2 L, Mean Corpuscular Hemoglobin Concent 30.1 L, Red Cell Distribution Width 18.7 H, Calcium Level 9.3 12/24/18 06:39 Red Blood Count 4.37, Mean Corpuscular Volume 76.7 L, Mean Corpuscular Hemoglobin 23.3 L, Mean Corpuscular Hemoglobin Concent 30.4 L, Red Cell Distribution Width 18.6 H, Calcium Level 9.0, Aspartate Amino Transf (AST/SGOT) 40 H, Alanine Aminotransferase (ALT/SGPT) 36, Alkaline Phosphatase 149 H, Total Bilirubin 0.5, Total Protein 8.0, Albumin 2.8 L Microbiology 12/15/18 Blood Culture - Final, Complete NO GROWTH AFTER 5 DAYS 12/15/18 Blood Culture - Final, Complete NO GROWTH AFTER 5 DAYS 12/17/18 MRSA Screen - Final, Complete Objective Physical Examination General Exam: Positive: Alert, Cooperative, No Acute Distress Eye Exam: Positive: Conjunctiva & lids normal ENT Exam: Positive: Atraumatic, Mucous membr. moist/pink Neck Exam: Negative: JVD Chest Exam: Positive: Clear to auscultation, Normal air movement Heart Exam: Positive: Rate Normal, Normal S1, Normal S2 Telemetry: Positive: No significant arrhythmia, Sinus Abdomen Exam: Positive: Soft; Negative: Tenderness Female Exam: Positive: Nl Ext Genitalia Extremity Exam: Positive: Other (right lower extremity noted to be wrapped in surgical dressing.) Skin Exam: Positive: Nl turgor and temperature Neuro Exam: Positive: Normal Speech, Cranial Nerves 3-12 NL Psych Exam: Positive: Mental status NL, Mood NL, Memory Intact, Oriented x 3 Dean Altamirano MD Dec 24, 2018 13:38
[2018-12-24] MEDS ORDERED: PROPOFOL 200 MG/20 ML VIAL As Ordered ONE ×2 (14:04→14:42)
[2018-12-24] MEDS ORDERED: MIDAZOLAM INJ 2 MG/2 ML VIAL (J2250) As Ordered ONE (14:04)
[2018-12-24] MEDS ORDERED: fentaNYL 100 MCG/2 ML INJECTION (J3010) As Ordered ONE ×2 (14:04→15:05)
[2018-12-24] MEDS ORDERED: PHENYLephrine HCL 500 MCG/5 ML (100MCG/ML) SYRINGE (J2370) As Ordered ONE (14:23)
--- NOTE | 2018-12-24 16:00 | IPNPDOC ---
Subjective Date Seen The patient was seen on 12/24/18. Subjective Chief Complaint/HPI No acute overnight events noted. Patient scheduled for a right knee disarticulation today with Vascular surgery. Objective Physical Examination General Exam: Positive: Alert, Cooperative, No Acute Distress ENT Exam: Positive: Atraumatic, Mucous membr. moist/pink Neck Exam: Negative: JVD Chest Exam: Positive: Clear to auscultation, Normal air movement Heart Exam: Positive: Rate Normal, Normal S1, Normal S2 Abdomen Exam: Positive: Soft; Negative: Tenderness Extremity Exam: Positive: Other (RLE wrapped in surgical dressing) Psych Exam: Positive: Oriented x 3 Assessment /Plan Plan/VTE VTE Prophylaxis Ordered?: Yes Plan Right tibial/fibular fracture with open wound. internal medicine specialist consulted, amputation recommended. Patient initially refused amputation. Patient is not a surgical intervention candidate and will not be able to tolerate cast. Consulted Vascular surgery, Dr. Altamirano and he has also discussed the need for amputation with the patient Dr. Jacobo wound consult appreciated Patient has decided to undergo amputation, she is tentatively scheduled for the OR today with Vascular Surgery We will follow up with the patient Infected right lower extremity ulcer s/p debridement with home mortgage disclosure act specialist, Dr. Jacobo, in the outpatient setting. Wound culture were done in the outpatient setting showed group G Streptococcus. MRI of the foot did not suggest osteomyelitis. Continue IV antibiotic Spinal bifida, status post spinal bifida surgery Hypothyroidism On Synthroid. Hypertension. Continue hydrochlorothiazide. 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 Jacobo as outpatient Deep venous thrombosis (DVT) prophylaxis Heparin SC VS, I&O, 24H, Lj Vital Signs/I&O Vital Signs Date Time Temp Pulse Resp B/P (MAP) Pulse Ox O2 Delivery O2 Flow Rate FiO2 12/24/18 13:21 98.4 94 18 133/66 (88) 96 I&O- Last 24 Hours up to 6 AM 12/24/18 06:00 Intake Total 1016 ml Balance 1016 ml Laboratory Data 24H LABS Laboratory Tests 2 12/24/18 06:39: Nucleated Red Blood Cells % (auto) 0.0, Anion Gap 8, Glomerular Filtration Rate > 60.0, Blood Urea Nitrogen 11, Creatinine 0.42L, Sodium Level 136, Potassium Level 4.2, Chloride Level 100, Carbon Dioxide Level 28, Calcium Level 9.0, Aspartate Amino Transf (AST/SGOT) 40H, Alanine Aminotransferase (ALT/SGPT) 36, Alkaline Phosphatase 149H, Total Bilirubin 0.5, Total Protein 8.0, Albumin 2.8L, Albumin/Globulin Ratio 0.54L CBC/BMP Laboratory Tests 12/24/18 06:39 Red Blood Count 4.37, Mean Corpuscular Volume 76.7 L, Mean Corpuscular Hemoglobin 23.3 L, Mean Corpuscular Hemoglobin Concent 30.4 L, Red Cell Distribution Width 18.6 H, Calcium Level 9.0, Aspartate Amino Transf (AST/SGOT) 40 H, Alanine Aminotransferase (ALT/SGPT) 36, Alkaline Phosphatase 149 H, Total Bilirubin 0.5, Total Protein 8.0, Albumin 2.8 L Microbiology Microbiology 12/15/18 Blood Culture - Final, Complete NO GROWTH AFTER 5 DAYS 12/15/18 Blood Culture - Final, Complete NO GROWTH AFTER 5 DAYS 12/17/18 MRSA Screen - Final, Complete JONAH LARSON MD Dec 24, 2018 16:00
[2018-12-24] MEDS: PHENYLephrine HCL 500 MCG/5 ML (100MCG/ML) SYRINGE (J2370) IV PRN ×5 (16:20→16:38)
[2018-12-24 16:34] LABS: HEMATOCRIT 23.4 % (36.0-47.0); MEAN CORPUSCULAR HEMOGLOBIN 23.2 pg (27.0-33.0); MEAN CORPUSCULAR HGB CONC 29.1 g/dl (32.0-36.5); MEAN CORPUSCULAR VOLUME 79.9 fl (80.0-96.0); PLATELET COUNT, AUTOMATED 829 10^3/uL (150-450); RED BLOOD COUNT 2.93 10^6/uL (4.00-5.40)
[2018-12-24 16:41] LABS: HEMOGLOBIN 6.8 g/dl (12.0-15.5); WHITE BLOOD COUNT 22.7 10^3/uL (4.0-10.0)
[2018-12-24] MEDS ORDERED: PHENYLEPHRINE HCL INJ 10 MG in D5W 100 ML IV ONE (16:45)
[2018-12-24] MEDS ORDERED: METOCLOPRAMIDE INJ 10MG/2ML VIAL (J2765) IV PRN (16:45)
[2018-12-24] MEDS ORDERED: LR 1,000 ML IV SCH (16:45)
[2018-12-24] MEDS ORDERED: ONDANSETRON 4MG/2ML VIAL (J2405) IV PRN (16:45)
[2018-12-24] MEDS ORDERED: fentaNYL 100 MCG/2 ML INJECTION (J3010) IV PRN (16:45)
[2018-12-24 16:55] LABS: BLOOD UREA NITROGEN 10 MG/DL (7-18); CALCIUM LEVEL 7.6 MG/DL (8.5-10.1); CARBON DIOXIDE LEVEL 29 MEQ/L (21-32); CHLORIDE LEVEL 104 MEQ/L (98-107); CREATININE FOR GFR 0.52 MG/DL (0.55-1.30); GLOMERULAR FILTRATION RATE > 60.0 (>58); GLUCOSE, FASTING 139 MG/DL (70-100); SODIUM LEVEL 141 MEQ/L (136-145)
[2018-12-24] MEDS ORDERED: ONDANSETRON 4MG/2ML VIAL (J2405) As Ordered ONE (17:03)
[2018-12-24] MEDS: cefTRIAXone SOD 1 GM in D5W MINI-BAG PLUS 50 ML IV SCH (17:10)
[2018-12-24] MEDS ORDERED: METOCLOPRAMIDE INJ 10MG/2ML VIAL (J2765) As Ordered ONE (17:17)
[2018-12-24] MEDS ORDERED: NS 250 ML IV SCH (17:30)
[2018-12-24] MEDS ORDERED: cefTRIAXone SOD 1 GM VIAL (J0696) As Ordered ONE (18:15)
[2018-12-24] MEDS: hydroCHLOROthiazide 25 MG TAB PO SCH (21:00)
[2018-12-24] MEDS: FOLIC ACID 1 MG TAB PO SCH (21:08)
[2018-12-24] MEDS: ATORVASTATIN 10 MG TAB PO SCH (21:09)
[2018-12-24] MEDS: ASCORBIC ACID 500 MG TAB PO SCH (21:10)
[2018-12-24] MEDS: MULTIVITAMINS/MINERALS THERAP 1 TAB PO SCH (21:10)
[2018-12-24] MEDS: ZINC SULFATE 220 MG CAP PO SCH (21:16)
[2018-12-25 04:00] VITALS: BP 103/53
[2018-12-25 05:54] LABS: HEMATOCRIT 25.3 % (36.0-47.0); MEAN CORPUSCULAR HGB CONC 31.6 g/dl (32.0-36.5); MEAN CORPUSCULAR VOLUME 82.1 fl (80.0-96.0); RED BLOOD COUNT 3.08 10^6/uL (4.00-5.40); WHITE BLOOD COUNT 12.4 10^3/uL (4.0-10.0)
[2018-12-25] MEDS: HEPARIN SOD (PORCINE) 5000 UNITS/ML VIAL SC SCH ×3 (06:00→22:00)
[2018-12-25 06:23] LABS: PLATELET COUNT, AUTOMATED 399 10^3/uL (150-450)
[2018-12-25 06:28] LABS: ALBUMIN 2.3 GM/DL (3.2-5.2); ALT/SGPT 23 U/L (12-78); BILIRUBIN,TOTAL 0.5 MG/DL (0.2-1.0); BLOOD UREA NITROGEN 10 MG/DL (7-18); CALCIUM LEVEL 7.7 MG/DL (8.5-10.1); CARBON DIOXIDE LEVEL 27 MEQ/L (21-32); CHLORIDE LEVEL 103 MEQ/L (98-107); CREATININE FOR GFR 0.42 MG/DL (0.55-1.30); GLOMERULAR FILTRATION RATE > 60.0 (>58); GLUCOSE, FASTING 143 MG/DL (70-100); POTASSIUM SERUM 3.8 MEQ/L (3.5-5.1); SODIUM LEVEL 138 MEQ/L (136-145); TOTAL PROTEIN 5.8 GM/DL (6.4-8.2)
[2018-12-25] MEDS: LEVOTHYROXINE 137MCG TABLET (0.137MG) PO SCH (06:38)
[2018-12-25 08:00] VITALS: BP 109/58
[2018-12-25] MEDS: SANTYL OINT 30GM TOP SCH ×2 (09:57→10:04)
[2018-12-25] MEDS: hydroCHLOROthiazide 25 MG TAB PO SCH (09:57)
[2018-12-25] MEDS: FOLIC ACID 1 MG TAB PO SCH (09:57)
[2018-12-25] MEDS: ASCORBIC ACID 500 MG TAB PO SCH (09:57)
[2018-12-25] MEDS: MULTIVITAMINS/MINERALS THERAP 1 TAB PO SCH (09:57)
[2018-12-25] MEDS: ZINC SULFATE 220 MG CAP PO SCH (09:57)
[2018-12-25] MEDS: ATORVASTATIN 10 MG TAB PO SCH (09:57)
[2018-12-25] MEDS ORDERED: NEOSTIGMINE 10 MG/10 ML VIAL (J2710) ONE (10:58)
[2018-12-25] MEDS ORDERED: PHENYLephrine HCL 500 MCG/5 ML (100MCG/ML) SYRINGE (J2370) ONE (10:58)
[2018-12-25 11:50] LABS: HEMATOCRIT 25.6 % (36.0-47.0)
[2018-12-25 12:00] VITALS: BP 103/56
--- NOTE | 2018-12-25 15:25 | IPNPDOC ---
Subjective Date Seen The patient was seen on 12/25/18. Subjective Chief Complaint/HPI Patient seen and examined at the bedside. Status post right lower extremity amputation with vascular surgery yesterday. She did have postoperative anemia and was transfused 2 units of packed red blood cells. This morning, the patient states that she is feeling better and denies any acute complaints of pain or discomfort. Objective Physical Examination General Exam: Positive: Alert, Cooperative, No Acute Distress ENT Exam: Positive: Atraumatic, Mucous membr. moist/pink Neck Exam: Negative: JVD Chest Exam: Positive: Clear to auscultation, Normal air movement Heart Exam: Positive: Rate Normal, Normal S1, Normal S2 Abdomen Exam: Positive: Soft; Negative: Tenderness Extremity Exam: Positive: Other (s/p RLE amputation, with surgical bandaging noted) Psych Exam: Positive: Oriented x 3 Assessment /Plan Plan/VTE VTE Prophylaxis Ordered?: Yes Plan Right tibial/fibular fracture with open wound. s/p Right Knee Disarticulation on 12/24/18 by Vascular Surgery PT to be ordered at the discretion of vascular surgery We will follow up with the patient Microcytic Anemia Post-Operative Anemia noted, patient transfused 2 Units of PRBC after procedure Hgb stable this AM Will transfuse for a Hgb <8.0 Spinal bifida, status post spinal bifida surgery Hypothyroidism On Synthroid. Hypertension. Continue hydrochlorothiazide. 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 Jacobo as outpatient Deep venous thrombosis (DVT) prophylaxis Heparin SC Dispo--pending clinical improvement, PT eval. VS, I&O, 24H, Lj Vital Signs/I&O Vital Signs Date Time Temp Pulse Resp B/P (MAP) Pulse Ox O2 Delivery O2 Flow Rate FiO2 12/25/18 12:00 98.2 96 20 103/56 (72) 100 2.0 I&O- Last 24 Hours up to 6 AM 12/25/18 06:00 Intake Total 4097 ml Output Total 0 ml Balance 4097 ml Laboratory Data 24H LABS Laboratory Tests 2 12/24/18 16:21: Nucleated Red Blood Cells % (auto) 0.0, Anion Gap 8, Glomerular Filtration Rate > 60.0, Blood Urea Nitrogen 10, Creatinine 0.52L, Sodium Level 141, Potassium Level 4.0, Chloride Level 104, Carbon Dioxide Level 29, Calcium Level 7.6#L 12/25/18 04:41: Nucleated Red Blood Cells % (auto) 0.0, Anion Gap 8, Glomerular Filtration Rate > 60.0, Blood Urea Nitrogen 10, Creatinine 0.42L, Sodium Level 138, Potassium Level 3.8, Chloride Level 103, Carbon Dioxide Level 27, Calcium Level 7.7L, Aspartate Amino Transf (AST/SGOT) 28, Alanine Aminotransferase (ALT/SGPT) 23, Alkaline Phosphatase 90, Total Bilirubin 0.5, Total Protein 5.8#L, Albumin 2.3L, Albumin/Globulin Ratio 0.66L CBC/BMP Laboratory Tests 12/24/18 16:21 Red Blood Count 2.93 L, Mean Corpuscular Volume 79.9 L, Mean Corpuscular Hemoglobin 23.2 L, Mean Corpuscular Hemoglobin Concent 29.1 L, Red Cell Distribution Width 18.8 H, Calcium Level 7.6 #L 12/25/18 04:41 Red Blood Count 3.08 L, Mean Corpuscular Volume 82.1, Mean Corpuscular Hemoglobin 26.0 L, Mean Corpuscular Hemoglobin Concent 31.6 L, Red Cell Distribution Width 18.7 H, Calcium Level 7.7 L, Aspartate Amino Transf (AST/SGOT) 28, Alanine Aminotransferase (ALT/SGPT) 23, Alkaline Phosphatase 90, Total Bilirubin 0.5, Total Protein 5.8 #L, Albumin 2.3 L 12/25/18 11:33 Microbiology Microbiology 12/15/18 Blood Culture - Final, Complete NO GROWTH AFTER 5 DAYS 12/15/18 Blood Culture - Final, Complete NO GROWTH AFTER 5 DAYS 12/17/18 MRSA Screen - Final, Complete JONAH LARSON MD Dec 25, 2018 15:25
[2018-12-25 16:00] VITALS: BP 134/65
[2018-12-25 20:00] VITALS: BP 120/56
[2018-12-25 23:59] VITALS: BP 115/60
[2018-12-26 04:00] VITALS: BP 113/58
[2018-12-26 05:23] LABS: HEMATOCRIT 24.9 % (36.0-47.0); HEMOGLOBIN 7.6 g/dl (12.0-15.5); MEAN CORPUSCULAR HEMOGLOBIN 25.5 pg (27.0-33.0); MEAN CORPUSCULAR HGB CONC 30.5 g/dl (32.0-36.5); MEAN CORPUSCULAR VOLUME 83.6 fl (80.0-96.0); PLATELET COUNT, AUTOMATED 354 10^3/uL (150-450); RED BLOOD COUNT 2.98 10^6/uL (4.00-5.40); WHITE BLOOD COUNT 11.4 10^3/uL (4.0-10.0)
[2018-12-26 05:45] LABS: ALBUMIN 2.3 GM/DL (3.2-5.2); ALT/SGPT 22 U/L (12-78); BILIRUBIN,TOTAL 0.3 MG/DL (0.2-1.0); BLOOD UREA NITROGEN 8 MG/DL (7-18); CALCIUM LEVEL 8.1 MG/DL (8.5-10.1); CARBON DIOXIDE LEVEL 29 MEQ/L (21-32); CHLORIDE LEVEL 103 MEQ/L (98-107); CREATININE FOR GFR 0.38 MG/DL (0.55-1.30); GLOMERULAR FILTRATION RATE > 60.0 (>58); GLUCOSE, FASTING 156 MG/DL (70-100); POTASSIUM SERUM 3.5 MEQ/L (3.5-5.1); SODIUM LEVEL 139 MEQ/L (136-145); TOTAL PROTEIN 6.3 GM/DL (6.4-8.2)
[2018-12-26] MEDS: HEPARIN SOD (PORCINE) 5000 UNITS/ML VIAL SC SCH ×3 (06:00→20:36)
[2018-12-26] MEDS: LEVOTHYROXINE 137MCG TABLET (0.137MG) PO SCH (06:12)
[2018-12-26 08:00] VITALS: BP 135/71
[2018-12-26] MEDS ORDERED: PILL CRUSHER/CUTTER 1 EACH XX PRN (10:00)
[2018-12-26] MEDS: ASCORBIC ACID 500 MG TAB PO SCH (10:36)
[2018-12-26] MEDS: ZINC SULFATE 220 MG CAP PO SCH (10:36)
[2018-12-26] MEDS: FOLIC ACID 1 MG TAB PO SCH (10:36)
[2018-12-26] MEDS: hydroCHLOROthiazide 25 MG TAB PO SCH (10:36)
[2018-12-26] MEDS: ATORVASTATIN 10 MG TAB PO SCH (10:36)
[2018-12-26] MEDS: MULTIVITAMINS/MINERALS THERAP 1 TAB PO SCH (10:37)
[2018-12-26] MEDS: SANTYL OINT 30GM TOP SCH (10:40)
[2018-12-26 12:00] VITALS: BP 134/74
[2018-12-26] MEDS ORDERED: SLF 3 ML SYR IV PRN (12:15)
[2018-12-26] MEDS: SLF 3 ML SYR IV SCH ×2 (14:45→20:37)
--- NOTE | 2018-12-26 15:07 | IPNPDOC ---
Subjective Date Seen The patient was seen on 12/26/18. Subjective Chief Complaint/HPI Patient seen and examined at the bedside. Denies any acute complaints this time. Objective Physical Examination General Exam: Positive: Alert, Cooperative, No Acute Distress ENT Exam: Positive: Atraumatic, Mucous membr. moist/pink Neck Exam: Negative: JVD Chest Exam: Positive: Clear to auscultation, Normal air movement Heart Exam: Positive: Rate Normal, Normal S1, Normal S2 Abdomen Exam: Positive: Soft; Negative: Tenderness Extremity Exam: Positive: Other (s/p RLE amputation, with surgical bandaging noted) Psych Exam: Positive: Oriented x 3 Assessment /Plan Plan/VTE VTE Prophylaxis Ordered?: Yes Plan Right tibial/fibular fracture with open wound. s/p Right Knee Disarticulation on 12/24/18 by Vascular Surgery We will follow up with vascular surgery recommendations We will follow up with the patient Microcytic Anemia Post-Operative Anemia noted, patient transfused 2 Units of PRBC after procedure Hgb noted to be 7.6 this a.m. we will order another unit of packed red blood cells Will transfuse for a Hgb <8.0 Spinal bifida, status post spinal bifida surgery Hypothyroidism On Synthroid. Hypertension. Continue hydrochlorothiazide. 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 Jacobo as outpatient Deep venous thrombosis (DVT) prophylaxis Heparin SC Dispo--pending clinical improvement VS, I&O, 24H, Fishbone Vital Signs/I&O Vital Signs Date Time Temp Pulse Resp B/P (MAP) Pulse Ox O2 Delivery O2 Flow Rate FiO2 12/26/18 12:00 98.0 103 18 134/74 (94) 98 12/26/18 04:00 2.0 I&O- Last 24 Hours up to 6 AM 12/26/18 06:00 Intake Total 1520 ml Output Total 0 ml Balance 1520 ml Laboratory Data 24H LABS Laboratory Tests 2 12/26/18 05:06: Nucleated Red Blood Cells % (auto) 0.0, Anion Gap 7L, Glomerular Filtration Rate > 60.0, Blood Urea Nitrogen 8, Creatinine 0.38L, Sodium Level 139, Potassium Level 3.5, Chloride Level 103, Carbon Dioxide Level 29, Calcium Level 8.1L, Aspartate Amino Transf (AST/SGOT) 14, Alanine Aminotransferase (ALT/SGPT) 22, Alkaline Phosphatase 92, Total Bilirubin 0.3, Total Protein 6.3L, Albumin 2.3L, Albumin/Globulin Ratio 0.58L CBC/BMP Laboratory Tests 12/26/18 05:06 Red Blood Count 2.98 L, Mean Corpuscular Volume 83.6, Mean Corpuscular Hemoglobin 25.5 L, Mean Corpuscular Hemoglobin Concent 30.5 L, Red Cell Distribution Width 19.8 H, Calcium Level 8.1 L, Aspartate Amino Transf (AST/SGOT) 14, Alanine Aminotransferase (ALT/SGPT) 22, Alkaline Phosphatase 92, Total Bilirubin 0.3, Total Protein 6.3 L, Albumin 2.3 L Microbiology Microbiology 12/17/18 MRSA Screen - Final, Complete JONAH LARSON MD Dec 26, 2018 15:07
[2018-12-26 16:00] VITALS: BP 119/58
--- NOTE | 2018-12-26 19:49 | ROOPDOC ---
Dean Altamirano MD Dec 26, 2018 19:49
--- NOTE | 2018-12-26 19:52 | IPNPDOC ---
Subjective General Date/Time Seen The patient was seen on 12/26/18 at 19:49. Subject Chief Complaint/History The patient is a 43-year-old female admitted with a reason for visit of Infected Ulcer Of Skin. Current Medications Current Medications Current Medications Ascorbic Acid (Vitamin C) 500 mg DAILY PO Last administered on 12/26/18 10:36; Start 12/16/18 at 09:00 Atorvastatin Calcium (Lipitor) 10 mg DAILY PO Last administered on 12/26/18at 10:36; Start 12/16/18 at 09:00 Cefepime HCl 1 gm/ Dextrose 50 ml @ 100 mls/hr Q12H IV ; Start 12/16/18 at 01:00; Stop 12/16/18 at 02:42; Status DC Cefepime HCl 1 gm/ Dextrose 50 ml @ 100 mls/hr Q12H IV Last administered on 12/18/18at 16:54; Start 12/16/18 at 04:00; Stop 12/18/18 at 19:52; Status DC Ceftriaxone Sodium 1 gm/ Dextrose 50 ml @ 100 mls/hr Q24H IV Last administered on 12/24/18at 17:10; Start 12/19/18 at 16:00; Stop 12/25/18 at 15:24; Status DC Cod Liver Oil/ Zinc Oxide (Desitin) 1 dose WDC PRN TOP EACH DRESSING CHANGE; Start 12/19/18 at 13:30 Collagenase (Santyl) 1 dose DAILY TOP Last administered on 12/26/18at 10:40; Start 12/16/18 at 09:00 Fentanyl Citrate (Sublimaze) 25 mcg Q5MP PRN IV MODERATE PAIN (PS 4-7); Start 12/24/18 at 16:45; Stop 12/24/18 at 17:45; Status DC Folic Acid (Folic Acid) 1 mg DAILY PO Last administered on 12/26/18at 10:36; Start 12/16/18 at 09:00 Heparin Sodium (Porcine) (Heparin) 5,000 units Q8H SC Last administered on 12/24/18at 22:00; Start 12/16/18 at 06:00 Home Med (Med Rec Complete!) ASDIRECTED XX ; Start 12/15/18 at 18:00; Stop 12/15/18 at 18:00; Status DC Hydrochlorothiazide (Hydrodiuril) 25 mg DAILY PO Last administered on 12/26/18at 10:36; Start 12/16/18 at 09:00 Lactated Ringer's 1,000 ml @ 75 mls/hr [id number] IV ; Start 12/24/18 at 16:45; Stop 12/24/18 at 17:45; Status DC Levothyroxine Sodium (Synthroid) 75 mcg DAILY@06 PO Last administered on 12/17/18 05:10; Start 12/16/18 at 06:00; Stop 12/17/18 at 19:52; Status DC Levothyroxine Sodium (Synthroid) 100 mcg DAILY@06 PO Last administered on 12/17/18at 05:10; Start 12/16/18 at 06:00; Stop 12/17/18 at 19:52; Status DC Levothyroxine Sodium (Synthroid) 137 mcg DAILY@06 PO Last administered on 12/26/18at 06:12; Start 12/18/18 at 06:00 Metoclopramide HCl (REGLAN INJection) 10 mg Q6HP PRN IV NAUSEA OR VOMITING; Start 12/24/18 at 16:45; Stop 12/24/18 at 17:45; Status DC Metronidazole 500 mg/IV Miscellaneous Supplies 100 ml @ 100 mls/hr Q8H IV Last administered on 12/18/18at 16:55; Start 12/16/18 at 00:00; Stop 12/18/18 at 19:52; Status DC Multivitamins (Theragram-M) 1 tab DAILY PO Last administered on 12/26/18at 10:37; Start 12/16/18 at 09:00 Ondansetron HCl (ZOFRAN INJection) 4 mg Q4HP PRN IV NAUSEA OR VOMITING Last administered on 12/24/18 17:05; Start 12/24/18 at 16:45; Stop 12/24/18 at 17:45; Status DC Ondansetron HCl (ZOFRAN INJection) 4 mg Q6HP PRN IV NAUSEA OR VOMITING; Start 12/15/18 at 22:30 Oxycodone/ Acetaminophen (Percocet 5mg/ 325mg Tablet) 1 tab Q8HP PRN PO MODERATE PAIN (PS 5-7) Last administered on 12/17/18at 09:04; Start 12/15/18 at 22:30 Phenylephrine HCl (Phenylephrine Syringe (100mcg/ ml)) 100 mcg Q2M PRN IV HYPOTENSION Last administered on 12/24/18at 16:38; Start 12/24/18 at 17:00; Stop 12/24/18 at 19:00; Status DC Sodium Chloride 250 ml @ 250 mls/hr Q1H IV Last administered on 12/24/18at 17:30; Start 12/24/18 at 17:30; Stop 12/24/18 at 18:29; Status DC Sodium Chloride 1,000 ml @ 90 mls/hr Q11H7M IV Last administered on 12/21/18at 11:14; Start 12/15/18 at 22:30; Stop 12/21/18 at 12:47; Status DC Sodium Chloride (Saline Lock Flush) 2 ml ASDIRECTED PRN IV SEE LABEL COMMENTS; Start 12/26/18 at 12:15 Sodium Chloride (Saline Lock Flush) 2 ml SLF IV Last administered on 12/26/18at 14:45; Start 12/26/18 at 14:00 Vancomycin HCl 1000 mg/IV Miscellaneous Supplies 1 each/ Dextrose 270 ml @ 270 mls/hr Q12H IV Last administered on 12/19/18at 14:10; Start 12/16/18 at 03:00; St op 12/19/18 at 14:23; Status DC Zinc Sulfate (Zinc Sulfate) 220 mg DAILY PO Last administered on 12/26/18at 10:36; Start 12/16/18 at 09:00 Allergies Coded Allergies: Sulfa Drugs (Verified Allergy, Intermediate, HIVES, 01/17/13) Sulfa Drugs Cross Reactors (Verified Allergy, Intermediate, HIVES, 01/17/13) Sulfamethoxazole (Verified Allergy, Intermediate, HIVES, 01/17/13) Sulfamethoxazole w/Trimethoprim (Verified Allergy, Intermediate, rash,hives,itching, 11/07/15) Trimethoprim (Verified Allergy, Intermediate, HIVES, 01/17/13) VITAL SIGNS VITAL SIGNS Vital Signs Date Time Temp Pulse Resp B/P (MAP) Pulse Ox O2 Delivery O2 Flow Rate FiO2 12/26/18 16:00 97.8 110 18 119/58 (78) 93 12/26/18 12:00 98.0 103 18 134/74 (94) 98 12/26/18 08:00 97.2 94 19 135/71 (92) 96 12/26/18 04:00 98.4 102 20 113/58 (76) 95 2.0 12/25/18 23:59 98.4 102 20 115/60 (78) 94 2.0 12/25/18 20:00 98.2 110 20 120/56 (77) 98 2.0 Intake & Output 12/26/18 06:00 Intake Total 1520 ml Output Total 0 ml Balance 1520 ml Laboratory Tests 12/26/18 05:06: White Blood Count 11.4H, Red Blood Count 2.98L, Hemoglobin 7.6L, Hematocrit 2 4.9L, Mean Corpuscular Volume 83.6, Mean Corpuscular Hemoglobin 25.5L, Mean Corpuscular Hemoglobin Concent 30.5L, Red Cell Distribution Width 19.8H, Platelet Count 354, Nucleated Red Blood Cells % (auto) 0.0, Blood Urea Nitrogen 8, Creatinine 0.38L, Sodium Level 139, Potassium Level 3.5, Chloride Level 103, Carbon Dioxide Level 29, Calcium Level 8.1L, Aspartate Amino Transf (AST/SGOT) 14, Alanine Aminotransferase (ALT/SGPT) 22, Alkaline Phosphatase 92, Total Bilirubin 0.3, Total Protein 6.3L, Albumin 2.3L, Anion Gap 7L, Glomerular Filtration Rate > 60.0, Fasting Glucose 156H, Albumin/Globulin Ratio 0.58L Microbiology 12/17/18 MRSA Screen - Final, Complete Current Medications Medications (Trade) Dose Ordered Sig/Shyanne Route PRN Reason Start Time Stop Time Status Last Admin Dose Admin Ascorbic Acid (Vitamin C) 500 mg DAILY PO 12/16/18 09:00 12/26/18 10:36 Atorvastatin Calcium (Lipitor) 10 mg DAILY PO 12/16/18 09:00 12/26/18 10:36 Collagenase (Santyl) 1 dose DAILY TOP 12/16/18 09:00 12/26/18 10:40 Folic Acid (Folic Acid) 1 mg DAILY PO 12/16/18 09:00 12/26/18 10:36 Heparin Sodium (Porcine) (Heparin) 5,000 units Q8H SC 12/16/18 06:00 12/24/18 22:00 Hydrochlorothiazide (Hydrodiuril) 25 mg DAILY PO 12/16/18 09:00 12/26/18 10:36 Levothyroxine Sodium (Synthroid) 137 mcg DAILY@06 PO 12/18/18 06:00 12/26/18 06:12 Multivitamins (Theragram-M) 1 tab DAILY PO 12/16/18 09:00 12/26/18 10:37 Oxycodone/ Acetaminophen (Percocet 5mg/ 325mg Tablet) 1 tab Q8HP PRN PO MODERATE PAIN (PS 5-7) 12/15/18 22:30 12/17/18 09:04 Sodium Chloride (Saline Lock Flush) 2 ml SLF IV 12/26/18 14:00 12/26/18 14:45 Zinc Sulfate (Zinc Sulfate) 220 mg DAILY PO 12/16/18 09:00 12/26/18 10:36 Laboratory Tests 12/25/18 04:41 Red Blood Count 3.08 L, Mean Corpuscular Volume 82.1, Mean Corpuscular Hemoglobin 26.0 L, Mean Corpuscular Hemoglobin Concent 31.6 L, Red Cell Distribution Width 18.7 H, Calcium Level 7.7 L, Aspartate Amino Transf (AST/SGOT) 28, Alanine Aminotransferase (ALT/SGPT) 23, Alkaline Phosphatase 90, Total Bilirubin 0.5, Total Protein 5.8 #L, Albumin 2.3 L 12/25/18 11:33 12/26/18 05:06 Red Blood Count 2.98 L, Mean Corpuscular Volume 83.6, Mean Corpuscular Hemoglobin 25.5 L, Mean Corpuscular Hemoglobin Concent 30.5 L, Red Cell Distribution Width 19.8 H, Calcium Level 8.1 L, Aspartate Amino Transf (AST/SGOT) 14, Alanine Aminotransferase (ALT/SGPT) 22, Alkaline Phosphatase 92, Total Bilirubin 0.3, Total Protein 6.3 L, Albumin 2.3 L Microbiology 12/17/18 MRSA Screen - Final, Complete Objective Physical Examination General Exam: Positive: Alert, Cooperative, No Acute Distress ENT Exam: Positive: Atraumatic, Mucous membr. 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 Plan Patient is doing well postoperatively, has no pain and her stump is dressed and clean. Patient will begin physical therapy. Dean Altamirano MD Dec 26, 2018 19:52
[2018-12-26 20:00] VITALS: BP 135/67
[2018-12-27] VITALS: BP 118/58
[2018-12-27 04:00] VITALS: BP 115/61
[2018-12-27] MEDS: HEPARIN SOD (PORCINE) 5000 UNITS/ML VIAL SC SCH ×3 (05:22→21:27)
[2018-12-27] MEDS: LEVOTHYROXINE 137MCG TABLET (0.137MG) PO SCH (05:52)
[2018-12-27] MEDS: SLF 3 ML SYR IV SCH ×3 (05:53→21:28)
[2018-12-27 06:12] LABS: HEMATOCRIT 29.6 % (36.0-47.0); HEMOGLOBIN 9.4 g/dl (12.0-15.5); MEAN CORPUSCULAR HGB CONC 31.8 g/dl (32.0-36.5); MEAN CORPUSCULAR VOLUME 85.1 fl (80.0-96.0); PLATELET COUNT, AUTOMATED 379 10^3/uL (150-450); RED BLOOD COUNT 3.48 10^6/uL (4.00-5.40); WHITE BLOOD COUNT 12.1 10^3/uL (4.0-10.0)
[2018-12-27 06:48] LABS: ALBUMIN 2.5 GM/DL (3.2-5.2); ALT/SGPT 21 U/L (12-78); BILIRUBIN,TOTAL 0.5 MG/DL (0.2-1.0); BLOOD UREA NITROGEN 8 MG/DL (7-18); CALCIUM LEVEL 8.6 MG/DL (8.5-10.1); CARBON DIOXIDE LEVEL 30 MEQ/L (21-32); CHLORIDE LEVEL 101 MEQ/L (98-107); GLOMERULAR FILTRATION RATE > 60.0 (>58); GLUCOSE, FASTING 151 MG/DL (70-100); POTASSIUM SERUM 3.4 MEQ/L (3.5-5.1); SODIUM LEVEL 137 MEQ/L (136-145); TOTAL PROTEIN 7.3 GM/DL (6.4-8.2)
[2018-12-27 08:00] VITALS: BP 122/60
[2018-12-27] MEDS: FOLIC ACID 1 MG TAB PO SCH (08:29)
[2018-12-27] MEDS: ASCORBIC ACID 500 MG TAB PO SCH (08:29)
[2018-12-27] MEDS: ATORVASTATIN 10 MG TAB PO SCH (08:29)
[2018-12-27] MEDS: MULTIVITAMINS/MINERALS THERAP 1 TAB PO SCH (08:29)
[2018-12-27] MEDS: hydroCHLOROthiazide 25 MG TAB PO SCH (08:29)
[2018-12-27] MEDS: ZINC SULFATE 220 MG CAP PO SCH (08:29)
[2018-12-27] MEDS: SANTYL OINT 30GM TOP SCH (08:30)
[2018-12-27] MEDS ORDERED: POTASSIUM CHLORIDE 10 MEQ SR TABLET PO ONE (09:15)
[2018-12-27] MEDS ORDERED: POTASSIUM CHLORIDE 10% LIQ 20 MEQ/15 ML UDC PO ONE (10:45)
[2018-12-27 12:00] VITALS: BP 142/60
--- NOTE | 2018-12-27 13:43 | IPNPDOC ---
Subjective Date Seen The patient was seen on 12/27/18. Subjective Chief Complaint/HPI Patient seen and examined at the bedside. She denies any acute complaints at this time. Reports that she is eager to work with physical therapy so she can get home soon. Objective Physical Examination General Exam: Positive: Alert, Cooperative, No Acute Distress ENT Exam: Positive: Atraumatic, Mucous membr. moist/pink Neck Exam: Negative: JVD Chest Exam: Positive: Clear to auscultation, Normal air movement Heart Exam: Positive: Rate Normal, Normal S1, Normal S2 Abdomen Exam: Positive: Soft; Negative: Tenderness Extremity Exam: Positive: Other (s/p RLE amputation, with surgical bandaging noted) Psych Exam: Positive: Oriented x 3 Assessment /Plan Plan/VTE VTE Prophylaxis Ordered?: Yes Plan Right tibial/fibular fracture with open wound. s/p Right Knee Disarticulation on 12/24/18 by Vascular Surgery We will follow up with vascular surgery recommendations We will follow up with the patient PT/OT on board for functional optimization Microcytic Anemia Post-Operative Anemia noted, patient transfused 3 Units of PRBC after procedure Hgb stable this AM Will transfuse for a Hgb <8.0 Spinal bifida, status post spinal bifida surgery Hypothyroidism On Synthroid. Hypertension. Continue hydrochlorothiazide. Stage IV Coccyx Pressure Injury Present on admission Wound care ordered F/U with Dr. Jacobo as outpatient Deep venous thrombosis (DVT) prophylaxis Heparin SC Dispo--pending clinical improvement VS, I&O, 24H, Fishbone Vital Signs/I&O Vital Signs Date Time Temp Pulse Resp B/P (MAP) Pulse Ox O2 Delivery O2 Flow Rate FiO2 12/27/18 12:00 97.4 98 18 142/60 (87) 92 12/26/18 04:00 2.0 I&O- Last 24 Hours up to 6 AM 12/27/18 06:00 Intake Total 2060 ml Output Total 0 ml Balance 2060 ml Laboratory Data 24H LABS Laboratory Tests 2 12/27/18 05:35: Nucleated Red Blood Cells % (auto) 0.2H, Anion Gap 6L, Glomerular Filtration Rate > 60.0, Blood Urea Nitrogen 8, Creatinine 0.40L, Sodium Level 137, Potassium Level 3.4L, Chloride Level 101, Carbon Dioxide Level 30, Calcium Level 8.6, Aspartate Amino Transf (AST/SGOT) 16, Alanine Aminotransferase (ALT/SGPT) 21, Alkaline Phosphatase 98, Total Bilirubin 0.5#, Total Protein 7.3, Albumin 2.5L, Albumin/Globulin Ratio 0.52L CBC/BMP Laboratory Tests 12/27/18 05:35 Red Blood Count 3.48 L, Mean Corpuscular Volume 85.1, Mean Corpuscular Hemoglobin 27.0, Mean Corpuscular Hemoglobin Concent 31.8 L, Red Cell Distribution Width 19.5 H, Calcium Level 8.6, Aspartate Amino Transf (AST/SGOT) 16, Alanine Aminotransferase (ALT/SGPT) 21, Alkaline Phosphatase 98, Total Bilirubin 0.5 #, Total Protein 7.3, Albumin 2.5 L Microbiology Microbiology 12/17/18 MRSA Screen - Final, Complete JONAH LARSON MD Dec 27, 2018 13:43
[2018-12-27 16:00] VITALS: BP 132/60
[2018-12-27 20:00] VITALS: BP 119/59
[2018-12-28] VITALS: BP 100/56
[2018-12-28 04:00] VITALS: BP 112/57
[2018-12-28] MEDS: LEVOTHYROXINE 137MCG TABLET (0.137MG) PO SCH (05:44)
[2018-12-28] MEDS: SLF 3 ML SYR IV SCH (05:45)
[2018-12-28] MEDS: HEPARIN SOD (PORCINE) 5000 UNITS/ML VIAL SC SCH ×2 (05:45→14:00)
[2018-12-28 06:02] LABS: HEMOGLOBIN 9.7 g/dl (12.0-15.5); MEAN CORPUSCULAR HEMOGLOBIN 26.9 pg (27.0-33.0); MEAN CORPUSCULAR HGB CONC 31.3 g/dl (32.0-36.5); MEAN CORPUSCULAR VOLUME 85.9 fl (80.0-96.0); PLATELET COUNT, AUTOMATED 393 10^3/uL (150-450); RED BLOOD COUNT 3.61 10^6/uL (4.00-5.40); WHITE BLOOD COUNT 10.5 10^3/uL (4.0-10.0)
[2018-12-28 06:34] LABS: ALBUMIN 2.5 GM/DL (3.2-5.2); ALT/SGPT 27 U/L (12-78); BILIRUBIN,TOTAL 0.5 MG/DL (0.2-1.0); BLOOD UREA NITROGEN 11 MG/DL (7-18); CALCIUM LEVEL 8.9 MG/DL (8.5-10.1); CARBON DIOXIDE LEVEL 29 MEQ/L (21-32); CHLORIDE LEVEL 102 MEQ/L (98-107); CREATININE FOR GFR 0.44 MG/DL (0.55-1.30); GLOMERULAR FILTRATION RATE > 60.0 (>58); GLUCOSE, FASTING 156 MG/DL (70-100); POTASSIUM SERUM 3.6 MEQ/L (3.5-5.1); SODIUM LEVEL 138 MEQ/L (136-145); TOTAL PROTEIN 7.4 GM/DL (6.4-8.2)
[2018-12-28 08:00] VITALS: BP 131/69
[2018-12-28] MEDS: ZINC SULFATE 220 MG CAP PO SCH (09:15)
[2018-12-28] MEDS: MULTIVITAMINS/MINERALS THERAP 1 TAB PO SCH (09:15)
[2018-12-28] MEDS: SANTYL OINT 30GM TOP SCH (09:15)
[2018-12-28] MEDS: hydroCHLOROthiazide 25 MG TAB PO SCH (09:15)
[2018-12-28] MEDS: ASCORBIC ACID 500 MG TAB PO SCH (09:15)
[2018-12-28] MEDS: FOLIC ACID 1 MG TAB PO SCH (09:15)
[2018-12-28] MEDS: ATORVASTATIN 10 MG TAB PO SCH (09:15)
[2018-12-28 12:00] VITALS: BP 134/63
--- NOTE | 2018-12-28 15:12 | DS.PDOC ---
Discharge Summary General Date of Admission Dec 15, 2018 at 22:19 Date of Discharge 12/28/18 Specialist/Consultants Involve Dr. Gordon of Ortho, Dr. Jacobo of Wound Care, Dr. Altamirano of Vascular Surgery Discharge Summary PROCEDURES PERFORMED DURING STAY: Right knee disarticulation on 12/24/18 by vascular surgery ADMITTING/DISCHARGE DIAGNOSES: Right tibial/fibular fracture with open wound status post right knee disarticulation Postoperative microcytic anemia History of spina bifida bifida status post multiple surgeries Hypothyroidism Hypertension History of stage IV coccyx pressure injury COMPLICATIONS/CHIEF COMPLAINT: Infected Ulcer Of Skin. HISTORY OF PRESENT ILLNESS: . 43-year-old female with past medical history of iron deficiency anemia, hypertension, dyslipidemia, hypothyroidism, spina bifida status post multiple surgeries, paraplegia, and wheelchair bound functional status presents to the ER after being sent by her patient registration specialist Dr. Jacobo after incision and drainage of an ulcer on the lateral malleolus with a Jaki drain with debridement of the metatarsals. X-ray imaging of the foot revealed a comminuted tibia/fibula fracture. She was evaluated by orthopedic surgery in the ER, and was admitted to the hospitalist service for further evaluation and management. During hospitalization, the patient was seen by orthopedic surgery, vascular [facility], and the wound care physician. It was decided that right lower extremity amputation would be the best course of treatment for her given the patient's aforementioned findings and concern for possible osteomyelitis at the distal tibia/fibula. The patient was started on empiric antibiotic therapy. Initially, the patient declined any kind of surgical intervention, however later in the hospitalization was more agreeable after meeting with a former amputee patient. The patient underwent right knee disarticulation by vascular surgery on 12/24/18 by vascular surgery. She did have postoperative anemia which required 3 units of packed red blood cells but did not have any overt bleeding or other co mplications thereafter. At this time, the patient has been seen by physical therapy and has been cleared for discharge. I've advised the patient follow-up with her primary care physician and vascular surgery within 7 days. She is also to follow-up with Dr. Jacobo of wound care for her regular visits. Lastly, the patient has been instructed to return to the ER for any acute emergencies. DISCHARGE MEDICATIONS: Please see below. ALLERGIES: Please see below. PHYSICAL EXAMINATION ON DISCHARGE: VITAL SIGNS: Please see below. General Exam: Positive: Alert, Cooperative, No Acute Distress ENT Exam: Positive: Atraumatic, Mucous membr. moist/pink Neck Exam: Negative: JVD Chest Exam: Positive: Clear to auscultation, Normal air movement Heart Exam: Positive: Rate Normal, Normal S1, Normal S2 Abdomen Exam: Positive: Soft; Negative: Tenderness Extremity Exam: Positive: Other (s/p RLE amputation, with surgical bandaging noted) Psych Exam: Positive: Oriented x 3 LABORATORY DATA: Please see below. IMAGING: MRI RIGHT FOOT WITHOUT CONTRAST: HISTORY: Rule out osteomyelitis. Comparison right foot radiographs December 15, 2018. TECHNIQUE: Axial coronal and sagittal T1- and T2-weighted scans were obtained. Scan quality is inhibited by less than optimal positioning. The patient's acute fractures. Comparison radiographs of the ankle December 15, 2018 show what appear to be subacute fractures of the distal tibia and fibula. The ankle and hindfoot appear to be fused. MRI FINDINGS: There is marked diffuse dorsal swelling over the forefoot, and to a lesser extent, diffuse swelling is seen at the midfoot and ankle level. There is heterogeneous fluid across the distal tibial and distal fibular fracture sites. There is no definite abscess. Cortical and medullary bone signal intensity are normal in the phalanges, metatarsals, and tarsal bones. Abnormal signal intensity is seen in the distal fibula and distal tibia. Dermal thickening and irregularity is seen in the dorsal forefoot soft tissues. IMPRESSION: Marked diffuse forefoot swelling particularly dorsally. There is no MR evidence of acute osteomyelitis. Subacute or acute fractures of the distal tibia and fibula are noted. Previous tibiotalar, fibulotalar, and hindfoot fusion. MRI RIGHT LOWER LEG: Multiple sequences obtained in the axial, coronal, and sagittal planes. There is a fracture of the distal third of the tibia with medial displacement. There is surrounding edema and fluid along the tibial shaft in this region. Ulceration is seen on the skin in the very distal aspect of the lower leg laterally. There is adjacent edema and probable cellulitis. Adjacent distal fibula appears destroyed and I suspect osteomyelitis at that location. The distal margin of the fibula is irregular and there appears to be periosteal reaction. The adjacent distal tibia demonstrates heterogeneous low signal on T1 and high signal on T2 and there may be involvement of the distal end of the tibia by osteomyelitis as well. IMPRESSION: Soft tissue ulcer with edema and cellulitis distal lower leg laterally. The adjacent distal fibula appears destroyed secondary to osteomyelitis. There may also be involvement of the adjacent distal tibia. There is an oblique fracture of the distal third of the tibia with surrounding edema and fluid along the tibial shaft. Clinical: Infection. Technique: AP, lateral, bilateral oblique views of the right ankle. Findings: Acute comminuted fractures of the distal tibial diaphysis and fibular metadiaphysis are appreciated. Underlying osteopenia and grossly deformed appearance to the ankle/midfoot is consistent with old trauma. Diffuse soft tissue swelling is appreciated. Osteomyelitis cannot definitively be excluded. Impression: 1. Acute comminuted fractures involving distal tibia and fibula. 2. Diffuse distortion of the normal bony architecture through the ankle and midfoot with osteopenia and overlying soft tissue swelling is consistent with old injuries and osteomyelitis cannot be excluded. PROGNOSIS: Fair ACTIVITY: As tolerated. DIET: 2 g low sodium diet DISCHARGE PLAN: DISPOSITION: 01 Home, Self-Care. DISCHARGE INSTRUCTIONS: I've advised the patient follow-up with her primary care physician and vascular surgery within 7 days. She is also to follow-up with Dr. Jacobo of wound care for her regular visits. Lastly, the patient has been instructed to return to the ER for any acute emergencies. DISCHARGE CONDITION: Stable. TIME SPENT ON DISCHARGE: Greater than 30 minutes. Vital Signs/I&Os Vital Signs Date Time Temp Pulse Resp B/P (MAP) Pulse Ox O2 Delivery O2 Flow Rate FiO2 12/28/18 12:00 98.2 97 20 134/63 (86) 95 12/26/18 04:00 2.0 l I&O- Last 24 Hours up to 6 AM 12/28/18 06:00 Intake Total 840 ml Output Total 0 ml Balance 840 ml Laboratory Data Labs 24H Laboratory Tests 2 12/28/18 05:42: Nucleated Red Blood Cells % (auto) 0.0, Anion Gap 7L, Glomerular Filtration Rate > 60.0, Blood Urea Nitrogen 11, Creatinine 0.44L, Sodium Level 138, Potassium Level 3.6, Chloride Level 102, Carbon Dioxide Level 29, Calcium Level 8.9, Aspartate Amino Transf (AST/SGOT) 24, Alanine Aminotransferase (ALT/SGPT) 27, Alkaline Phosphatase 107, Total Bilirubin 0.5, Total Protein 7.4, Albumin 2.5L, Albumin/Globulin Ratio 0.51L CBC/BMP Laboratory Tests 3/13/19 05:42 Red Blood Count 3.61 L, Mean Corpuscular Volume 85.9, Mean Corpuscular Hemoglobin 26.9 L, Mean Corpuscular Hemoglobin Concent 31.3 L, Red Cell Distribution Width 19.9 H, Calcium Level 8.9, Aspartate Amino Transf (AST/SGOT) 24, Alanine Aminotransferase (ALT/SGPT) 27, Alkaline Phosphatase 107, Total Bilirubin 0.5, Total Protein 7.4, Albumin 2.5 L Discharge Medications Scheduled Ascorbic Acid (Vitamin C) 500 Mg Tab, 500 MG PO DAILY, (Reported) Atorvastatin Calcium (Atorvastatin Calcium) 10 Mg Tab, 10 MG PO DAILY, (Reported) Folic Acid (Folic Acid) 1 Mg Tab, 1 MG PO DAILY, (Reported) Hydrochlorothiazide (Hydrochlorothiazide) 25 Mg Tab, 25 MG PO DAILY, (Reported) Levothyroxine Sodium (Synthroid) 175 Mcg Tab, 175 MCG PO QAM, (Reported) Multivitamins *[facility] STOCKED* (Thera M Plus *[facility] STOCKED*) 1 Tab Tab, 1 TAB PO DAILY, (Reported) Zinc Sulfate (Zinc Sulfate) 220 Mg Cap, 220 MG PO DAILY, (Reported) Scheduled PRN (Ciclopirox Olamine) 0.77 % Cre, 1 APLCT TOP PRN PRN for RASH, (Reported) APPLY UNDER BREASTS Allergies Coded Allergies: Sulfa Drugs (Verified Allergy, Intermediate, HIVES, 01/17/13) Sulfa Drugs Cross Reactors (Verified Allergy, Intermediate, HIVES, 01/17/13) Sulfamethoxazole (Verified Allergy, Intermediate, HIVES, 01/17/13) Sulfamethoxazole w/Trimethoprim (Verified Allergy, Intermediate, rash,hives,itching, 11/07/15) Trimethoprim (Verified Allergy, Intermediate, HIVES, 01/17/13) JONAH LARSON MD Dec 28, 2018 15:12
--- NOTE | 2019-01-18 09:57 | RO ---
DATE OF PROCEDURE: 12/24/2018 ATTENDING SURGEON: Dr. Sammi Altamirano MANAGER BUSINESS OPERATIONS: None. PREOPERATIVE DIAGNOSES: Right foot gangrene, right tibial fracture with nonhealing right lower extremity wounds, non-ambulation. POSTOPERATIVE DIAGNOSES: Right foot gangrene, right tibial fracture with nonhealing right lower extremity wounds, non-ambulation. PROCEDURE: Right knee disarticulation with amputation. INDICATION: The patient is a 43-year-old female who is non-ambulatory and who has nonhealing wounds and her right foot as well as calf who was noted to have a right tibial fibular fracture which is nonhealing and the patient was evaluated by orthopedics who was not a candidate for repair of her fracture due to the wounds located in the region as well as her non-ambulation. The patient will undergo a right knee disarticulation with closure of the amputation stump. The patient has a large ulcer on the posterior aspect of her thigh which would necessitate a high above-knee amputation and/or possible hip disarticulation and will undergo a knee disarticulation and amputation in order to provide as much length as possible and prevent above-knee amputation through the preexisting wound. The risks, benefits and alternative options were discussed with the patient. ANESTHESIA: Was monitored anesthesia care (MAC). ESTIMATED BLOOD LOSS: 350 mL. IV FLUIDS: 250 mL of albumin, 2000 mL of crystalloid. SPECIMEN: Right lower extremity. COMPLICATIONS: None. DRAINS: None. IMPLANTS: None. PROCEDURE: The patient was taken to the operating room, placed supine on the operating room table and then prepped and draped in a standard surgical fashion. The incision was made circumferentially below the patella with a scalpel and then used Bovie electrocautery to dissect the remainder of the subcutaneous tissue down to the bone and the knee disarticulation was performed sharply after which the posterior flap was approximated and the anterior flap using #2-0 Vicryl sutures. Renee were used to approximate the skin. Dressings were then applied. The patient tolerated the procedure well. All instruments, sponge, and needle counts were correct at the end of case. There were no complications. Dr. Altamirano was present for directed the entire case. The patient was transferred to recovery room awake, alert and in stable condition.
== END 2018-12-28 15:05 | disposition home or self-care (01) | DRG 907 ==
LOC: M ED 15:54 → M ED INP 22:19 → M MS5PR 12-16 01:55 → M PCU 12-24 17:31
PROVIDERS: ADMIT Internal Medicine; ATTEND Internal Medicine
PROC: 30233N1 Transfusion of Nonautologous Red Blood Cells into Peripheral Vein, Percutaneous Approach (ICD-10-PCS; 2018-12-24)
PROC: 0Y6C0Z3 Detachment at Right Upper Leg, Low, Open Approach (ICD-10-PCS; principal; 2018-12-24 08:30)
DX: T81.89XA Other complications of procedures, not elsewhere classified, initial encounter (principal); L89.154 Pressure ulcer of sacral region, stage 4; G82.21 Paraplegia, complete; M86.9 Osteomyelitis, unspecified; M84.461A Pathological fracture, right tibia, initial encounter for fracture; L89.510 Pressure ulcer of right ankle, unstageable; Q05.9 Spina bifida, unspecified; I10 Essential (primary) hypertension; E03.9 Hypothyroidism, unspecified; E78.5 Hyperlipidemia, unspecified; Z79.899 Other long term (current) drug therapy; Z88.2 Allergy status to sulfonamides; Z88.8 Allergy status to other drugs, medicaments and biological substances; Y83.8 Other surgical procedures as the cause of abnormal reaction of the patient, or of later complication, without mention of misadventure at the time of the procedure

== ENCOUNTER → 2018-12-15 | Outpatient (REF) | payer MEDICARE, MEDICAID ==
[~2018-12-15] MED LIST changes: +LEVO175T2 PO; +ZINC220CA PO
== END ==
LOC: M LAB REF 17:48
PROVIDERS: ATTEND Surgery
DX: L89.154 Pressure ulcer of sacral region, stage 4 (principal)

== ENCOUNTER 2019-01-19 15:23 | Inpatient (IN) | payer MEDICARE, MEDICAID ==
[~2019-01-19] VITALS: Ht 154.9 cm; Wt 65.2 kg
[~2019-01-19 15:23] MED LIST changes: +HYDR-2541 PO; +LEVO175T2 PO; +ZINC220CA PO
[2019-01-19] MEDS ORDERED: CLINDAMYCIN 900 MG in APPROPRIATE DILUENT 1 EA IV ONE (18:00)
[2019-01-19] MEDS ORDERED: VANCOMYCIN HCL 1,000 MG, VIAL MATE ADAPTER 1 EACH in D5W 250 ML IV ONE (18:30)
[2019-01-19] MEDS ORDERED: PIPERACILLIN/TAZOBACTAM SOD 3.375 GM in D5W MINI-BAG PLUS 50 ML IV ONE (18:30)
--- NOTE | 2019-01-19 18:39 | REP ---
Clinical: Left lower extremity pain and erythema . Technique: Godinez scale and color Doppler evaluation using linear high frequency transducer. Findings: Ultrasound examination of the left lower extremity deep venous structures from the common femoral vein to the popliteal vein demonstrates normal compressibility flow and wave patterns in response to respiration and augmentation. There is no evidence for deep venous thrombosis. Impression: No evidence for deep venous thrombosis. Electronically Signed by Amos Kyle MD 01/19/2019 06:30 P
[2019-01-19 19:24] LABS: BASO % 0.3 % (0.0-1.0); EOS # 0.2 10^3/uL (0.0-0.50); EOS % 1.5 % (0.0-3.0); HEMATOCRIT 31.2 % (36.0-47.0); HEMOGLOBIN 9.5 g/dl (12.0-15.5); LYMPH # 2.1 10^3/uL (1.5-4.5); LYMPH % 18.3 % (24.0-44.0); MEAN CORPUSCULAR HEMOGLOBIN 24.5 pg (27.0-33.0); MEAN CORPUSCULAR HGB CONC 30.4 g/dl (32.0-36.5); MEAN CORPUSCULAR VOLUME 80.4 fl (80.0-96.0); MONO # 0.4 10^3/uL (0.0-0.8); MONO % 3.7 % (0.0-5.0); NEUTROPHILS # 8.9 10^3/uL (1.8-7.7); NEUTROPHILS % 75.5 % (36.0-66.0); PLATELET COUNT, AUTOMATED 540 10^3/uL (150-450); RED BLOOD COUNT 3.88 10^6/uL (4.00-5.40); WHITE BLOOD COUNT 11.7 10^3/uL (4.0-10.0)
[2019-01-19] MEDS ORDERED: ACETAMINOPHEN TAB 650MG DOSE (2X325MG) PO PRN (19:30)
[2019-01-19 19:35] LABS: BLOOD UREA NITROGEN 7 MG/DL (7-18); CALCIUM LEVEL 8.5 MG/DL (8.5-10.1); CARBON DIOXIDE LEVEL 26 MEQ/L (21-32); CHLORIDE LEVEL 106 MEQ/L (98-107); GLOMERULAR FILTRATION RATE > 60.0 (>58); GLUCOSE, FASTING 129 MG/DL (70-100); POTASSIUM SERUM 3.9 MEQ/L (3.5-5.1); SODIUM LEVEL 139 MEQ/L (136-145)
--- NOTE | 2019-01-19 19:55 | HPEPDOC ---
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 She denied any fever, chills, chest pain, sob, n/v or abd pain. ROS all 14 point ROS is negative except for whats listed in HPI PAST SURGICAL HISTORY: Spina bifida surgery. Stark's cyst removal. Knee surgery. Ankle surgery. HOME MEDICATIONS: Includes: - vitamin C - Lipitor - folic acid - hydrochlorothiazide - Synthroid - multivitamin - zinc sulfate ALLERGIES: 1. SULFA DRUGS. 2. SULFA DRUG CROSS REACTORS. 3. BACTRIM. SOCIAL HISTORY: Denies tobacco, alcohol or illicit drug use. FAMILY HISTORY: Chronic obstructive pulmonary disease (COPD). Physical exam GEN: NAD, obese, wheelchair bound HEENT: PERRLA, neck supple, EOMI, trachea midline, normal conjunctiva CVS: no chest wall tenderness, normal S1, S2, regular rate and rhythm, no edema, no JVD RESP: no acute distress, LCTAB, no wheezes, rhonchi, or crackles Abd: soft, nontender, nondistended, normal bowel sound, no guarding : no cva tenderness, no suprapubic tenderness MSK : wheelchair bound, paraplegic - no movement or sensation in lower extremities, FROM in UE, joint swelling or tenderness, right AKA erythema, mild swelling and warmth, packed with dressing, but yellow exudative drainage noted Neuro: paraplegic Psych: AOA x3, normal mood, good judgement and insight LABORATORY DATA: See below. IMAGING: [venous doppler negative ] MICROBIOLOGY: blood cx and wound cx pending ASSESSMENT and Plan Right post AKA infection - christa - Dr. Altamirano aware - will consult on patient - wound care per surgery - prn pain meds - f/u xray of leg - f/u blood cx and wound cx Hypothryroidism - c/w levothyroxine c/w - other home meds dvt ppx full code, from home Vital Signs Vital Signs Date Time Temp Pulse Resp B/P (MAP) Pulse Ox O2 Delivery O2 Flow Rate FiO2 01/19/19 16:46 01/19/19 15:38 97.6 90 20 97 Room Air Laboratory Data Labs 24H Laboratory Tests 2 01/19/19 19:10: Immature Granulocyte % (Auto) 0.7, White Blood Count 11.7H, Red Blood Count 3.88L, Hemoglobin 9.5L, Hematocrit 31.2L, Mean Corpuscular Volume 80.4, Mean Corpuscular Hemoglobin 24.5L, Mean Corpuscular Hemoglobin Concent 30.4L, Red Cell Distribution Width 17.2H, Platelet Count 540H, Neutrophils (%) (Auto) 75.5H, Lymphocytes (%) (Auto) 18.3L, Monocytes (%) (Auto) 3.7, Eosinophils (%) (Auto) 1.5, Basophils (%) (Auto) 0.3, Neutrophils # (Auto) 8.9H, Lymphocytes # (Auto) 2.1, Monocytes # (Auto) 0.4, Eosinophils # (Auto) 0.2, Basophils # (Auto) 0.0, Nucleated Red Blood Cells % (auto) 0.0 CBC/BMP Laboratory Tests 01/19/19 19:10 Red Blood Count 3.88 L, Mean Corpuscular Volume 80.4, Mean Corpuscular Hemoglobin 24.5 L, Mean Corpuscular Hemoglobin Concent 30.4 L, Red Cell Distribution Width 17.2 H, Neutrophils (%) (Auto) 75.5 H, Lymphocytes (%) (Auto) 18.3 L, Monocytes (%) (Auto) 3.7, Eosinophils (%) (Auto) 1.5, Basophils (%) (Auto) 0.3, Neutrophils # (Auto) 8.9 H, Lymphocytes # (Auto) 2.1, Monocytes # (Auto) 0.4, Eosinophils # (Auto) 0.2, Basophils # (Auto) 0.0 Microbiology Microbiology 01/19/19 Blood Culture, Received Pending 01/19/19 Blood Culture, Received Pending 01/19/19 Anaerobic Culture, Received Pending 01/19/19 Gram Stain, Received Pending 01/19/19 Wound Culture, Received Pending Home Medications Scheduled Ascorbic Acid (Vitamin C) 500 Mg Tab, 500 MG PO DAILY Atorvastatin Calcium (Atorvastatin Calcium) 10 Mg Tab, 10 MG PO DAILY Folic Acid (Folic Acid) 1 Mg Tab, 1 MG PO DAILY Hydrochlorothiazide (Hydrochlorothiazide) 25 Mg Tab, 25 MG PO DAILY Levothyroxine Sodium (Synthroid) 175 Mcg Tab, 175 MCG PO QAM Multivitamins *[facility] STOCKED* (Thera M Plus *[facility] STOCKED*) 1 Tab Tab, 1 TAB PO DAILY Zinc Sulfate (Zinc Sulfate) 220 Mg Cap, 220 MG PO DAILY Scheduled PRN (Ciclopirox Olamine) 0.77 % Cre, 1 APLCT TOP PRN PRN for RASH APPLY UNDER BREASTS Allergies Coded Allergies: Sulfa (Sulfonamide Antibiotics) (Verified Allergy, Unknown, 01/19/19) betaine (Unverified Allergy, Unknown, FROM [facility], 01/19/19) JENELLE LANDIS MD Jan 19, 2019 19:35
--- NOTE | 2019-01-19 20:56 | REP ---
Clinical: Post surgical infection. Technique: AP and lateral views of the knee. Findings: The patient appears to be status post amputation at the knee. Periosteal reaction involving the visualized femoral shaft is likely chronic and may be related to osteomyelitis. Cortical irregularities at the femoral condyles are suggested although no prior examination is available for comparison and findings are nonspecific. Surgical geovanna in the skin are consistent with recent amputation. Subcutaneous emphysema and soft tissue swelling is suggested. Impression: Postsurgical changes and findings as described above. Differential diagnosis would include postsurgical changes as well as possible underlying postsurgical infection including subcutaneous emphysema and swelling. Electronically Signed by Amos Kyle MD 01/19/2019 08:48 P
[2019-01-19] MEDS: DOCUSATE SODIUM 100 MG CAP PO SCH (21:00)
[2019-01-19 22:20] VITALS: BP 124/59
--- NOTE | 2019-01-19 22:49 | PHACANCOPD ---
PHARMACY VANCOMYCIN DOSING Pt Demographics Demographics Patient Age:43 , Weight:65.2 , Gender: female Adjusted Body Weight Events Past 24 Hours Events Past 24 Hours: NO: Dialysis, Diuretic Therapy, Change in CrCl, Fever, Elevation in WBC, Pending Diagnostics, Pending Procedures, Other Vancomycin Vancomycin Target Ranges: 15-20 mcg/ml Vancomycin Load Y/N: No Load Dose Date Time Vancomycin Load Dose: Date: Time: Vancomycin Dose Date: 01/19/19. Current Vancomycin Dose: [Vanco 1gm IV Q12H STARTING AT 02:00 01/20/19 FOLLOWING 1GM ADMINISTERED IN ER AT 20:30] Intermittent Dosing?: No Labs Labs Laboratory Tests 01/19/19 19:10 Red Blood Count 3.88 L, Mean Corpuscular Volume 80.4, Mean Corpuscular Hemoglobin 24.5 L, Mean Corpuscular Hemoglobin Concent 30.4 L, Red Cell Distribution Width 17.2 H, Neutrophils (%) (Auto) 75.5 H, Lymphocytes (%) (Auto) 18.3 L, Monocytes (%) (Auto) 3.7, Eosinophils (%) (Auto) 1.5, Basophils (%) (Auto) 0.3, Neutrophils # (Auto) 8.9 H, Lymphocytes # (Auto) 2.1, Monocytes # (Auto) 0.4, Eosinophils # (Auto) 0.2, Basophils # (Auto) 0.0, Calcium Level 8.5 Micro Microbiology 01/19/19 Blood Culture, Received Pending 01/19/19 Blood Culture, Received Pending 01/19/19 Anaerobic Culture, Received Pending 01/19/19 Gram Stain, Received Pending 01/19/19 Wound Culture, Received Pending Creatinine Clearance Date:01/19/19. Creatinine Clearance: [>80ml/min]. Assessment and Plan Maintaining Current Dose?: Yes Reason for dose change: No Dose Change Pharmacist Note Pharmacist Note Date: 01/19/19. PharmD note: VANCO 1GM GIVEN IV IN THE ER AT APPROX 20:30 AT THIS POINT WE WILL INITIATE HER ON VANCO 1GM IV Q1H STARTING AT 02:00 01/20/19 WAS DOSED PER HER PREVIOUS ADMISSION. VANCO TROUGH WHEN AT [facility] Jan 19, 2019 22:49
[2019-01-20] MEDS: PIPERACILLIN/TAZOBACTAM SOD 3.375 GM in D5W MINI-BAG PLUS 50 ML IV SCH ×5 (00:26→23:44)
[2019-01-20] MEDS: VANCOMYCIN HCL 1,000 MG, VIAL MATE ADAPTER 1 EACH in D5W 250 ML IV SCH ×2 (02:09→14:50)
[2019-01-20] MEDS: HEPARIN SOD (PORCINE) 5000 UNITS/ML VIAL SC SCH ×3 (05:23→22:00)
[2019-01-20] MEDS: LEVOTHYROXINE 150MCG TABLET (0.15MG) PO SCH (05:33)
[2019-01-20] MEDS: LEVOTHYROXINE 25MCG TABLET (0.025MG) PO SCH (05:33)
[2019-01-20 06:00] VITALS: BP 126/60
[2019-01-20 06:17] LABS: HEMATOCRIT 28.2 % (36.0-47.0); HEMOGLOBIN 8.4 g/dl (12.0-15.5); MEAN CORPUSCULAR HEMOGLOBIN 24.1 pg (27.0-33.0); MEAN CORPUSCULAR HGB CONC 29.8 g/dl (32.0-36.5); PLATELET COUNT, AUTOMATED 499 10^3/uL (150-450); RED BLOOD COUNT 3.48 10^6/uL (4.00-5.40); WHITE BLOOD COUNT 9.7 10^3/uL (4.0-10.0)
[2019-01-20 06:37] LABS: BLOOD UREA NITROGEN 6 MG/DL (7-18); CALCIUM LEVEL 8.1 MG/DL (8.5-10.1); CARBON DIOXIDE LEVEL 27 MEQ/L (21-32); CHLORIDE LEVEL 106 MEQ/L (98-107); CREATININE FOR GFR 0.57 MG/DL (0.55-1.30); GLOMERULAR FILTRATION RATE > 60.0 (>58); GLUCOSE, FASTING 94 MG/DL (70-100); MAGNESIUM LEVEL 2.4 MG/DL (1.8-2.4); POTASSIUM SERUM 3.3 MEQ/L (3.5-5.1); SODIUM LEVEL 140 MEQ/L (136-145)
[2019-01-20] MEDS: MULTIVITAMINS/MINERALS THERAP 1 TAB PO SCH (08:45)
[2019-01-20] MEDS: ATORVASTATIN 10 MG TAB PO SCH (08:45)
[2019-01-20] MEDS: DOCUSATE SODIUM 100 MG CAP PO SCH ×2 (08:46→21:00)
[2019-01-20] MEDS: hydroCHLOROthiazide 25 MG TAB PO SCH (08:46)
[2019-01-20] MEDS: FOLIC ACID 1 MG TAB PO SCH (08:46)
[2019-01-20] MEDS: ASCORBIC ACID 500 MG TAB PO SCH (08:46)
--- NOTE | 2019-01-20 09:57 | IPNPDOC ---
Date Seen The patient was seen on 01/20/19. Progress Note SUBJECTIVE: Patient is a 43 yo female who was admitted for post surgical wound infection of the R AKA. She is on vanc and zosyn, without any complaint of pain or fever. OBJECTIVE Physical exam GEN: NAD, obese, wheelchair bound HEENT: PERRLA, neck supple, EOMI, trachea midline, normal conjunctiva CVS: no chest wall tenderness, normal S1, S2, regular rate and rhythm, no edema, no JVD RESP: no acute distress, LCTAB, no wheezes, rhonchi, or crackles Abd: soft, nontender, nondistended, normal bowel sound, no guarding : no cva tenderness, no suprapubic tenderness MSK : wheelchair bound, paraplegic - no movement or sensation in lower extremities, FROM in UE, joint swelling or tenderness, right AKA in clean dressing this morning Neuro: paraplegic Psych: AOA x3, normal mood, good judgement and insight LABORATORY DATA, IMAGING STUDIES, MICROBIOLOGY: Please see below. RIGHT LE XRAY Impression: Postsurgical changes and findings as described above. Differential diagnosis would include postsurgical changes as well as possible underlying postsurgical infection including subcutaneous emphysema and swelling. DVT prophylaxis ordered?: [yes] ASSESSMENT AND PLAN: Infection of right AKA - c/w vanc and zosyn - f/u vanc trough - Dr. Altamirano following HYpothyroidism c/w levothyroxine HTN c/w hctz will monitor bp in light of infection Anemia f/u anemia w/u including stool guaiac DISPOSITION: Pending surgery follow up for plan . full code VS, I&O, 24H, Fishbone Vital Signs/I&O Vital Signs Date Time Temp Pulse Resp B/P (MAP) Pulse Ox O2 Delivery O2 Flow Rate FiO2 01/20/19 06:00 98.0 102 16 126/60 (82) 99 01/19/19 15:38 Room Air I&O- Last 24 Hours up to 6 AM 01/20/19 06:00 Intake Total 530 ml Balance 530 ml Laboratory Data 24H LABS Laboratory Tests 2 01/19/19 19:10: Immature Granulocyte % (Auto) 0.7, White Blood Count 11.7H, Red Blood Count 3.88L, Hemoglobin 9.5L, Hematocrit 31.2L, Mean Corpuscular Volume 80.4, Mean Corpuscular Hemoglobin 24.5L, Mean Corpuscular Hemoglobin Concent 30.4L, Red Cell Distribution Width 17.2H, Platelet Count 540H, Neutrophils (%) (Auto) 75.5H, Lymphocytes (%) (Auto) 18.3L, Monocytes (%) (Auto) 3.7, Eosinophils (%) (Auto) 1.5, Basophils (%) (Auto) 0.3, Neutrophils # (Auto) 8.9H, Lymphocytes # (Auto) 2.1, Monocytes # (Auto) 0.4, Eosinophils # (Auto) 0.2, Basophils # (Auto) 0.0, Nucleated Red Blood Cells % (auto) 0.0, Anion Gap 7L, Glomerular Filtration Rate > 60.0, Blood Urea Nitrogen 7, Creatinine 0.50L, Sodium Level 139, Potassium Level 3.9, Chloride Level 106, Carbon Dioxide Level 26, Calcium Level 8.5 01/20/19 05:29: Nucleated Red Blood Cells % (auto) 0.0, Anion Gap 7L, Glomerular Filtration Rate > 60.0, Blood Urea Nitrogen 6L, Creatinine 0.57, Sodium Level 140, Potassium Level 3.3L, Chloride Level 106, Carbon Dioxide Level 27, Calcium Level 8.1L, Magnesium Level 2.4 CBC/BMP Laboratory Tests 01/19/19 19:10 Red Blood Count 3.88 L, Mean Corpuscular Volume 80.4, Mean Corpuscular Hemoglobin 24.5 L, Mean Corpuscular Hemoglobin Concent 30.4 L, Red Cell Distribution Width 17.2 H, Neutrophils (%) (Auto) 75.5 H, Lymphocytes (%) (Auto) 18.3 L, Monocytes (%) (Auto) 3.7, Eosinophils (%) (Auto) 1.5, Basophils (%) (Auto) 0.3, Neutrophils # (Auto) 8.9 H, Lymphocytes # (Auto) 2.1, Monocytes # (Auto) 0.4, Eosinophils # (Auto) 0.2, Basophils # (Auto) 0.0, Calcium Level 8.5 01/20/19 05:29 Red Blood Count 3.48 L, Mean Corpuscular Volume 81.0, Mean Corpuscular Hemoglobin 24.1 L, Mean Corpuscular Hemoglobin Concent 29.8 L, Red Cell Distribution Width 17.4 H, Calcium Level 8.1 L Microbiology Microbiology 01/19/19 Blood Culture, Received Pending 01/19/19 Blood Culture, Received Pending 01/19/19 Anaerobic Culture, Received Pending 01/19/19 Gram Stain - Final, Resulted 01/19/19 Wound Culture, Resulted Pending JENELLE LANDIS MD Jan 20, 2019 09:57
--- NOTE | 2019-01-20 10:31 | CR.PDOC ---
General Date of Consultation: Jan 20, 2019 Consultation Vascular Surgery: Dr Altamirano CONSULTATION REPORT FOR: Dr Vazquez REASON FOR CONSULTATION: Rt AKA wound/erythema. PCP: Sloane Bautista MD. 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 She has been following with Dr Jacobo for wound management last seen there 01/12/19. She was admitted as per Hospitalist for Rt AKA infection and placed on IV Vanco Zosyn. Vascular Surgery is consulted for further evaluation of Rt AKA wound. The pt states she has noted increased erythema of rt AKA wound area and yellowish drainage from wound. Denies fevers, chills. Denies any weakness, fatigue, Headache, Chest Pain, Shortness of breath, cough, palpitations, abdominal pain, N/V/D or changes in bowel or bladder habits. PMH spina bifida paraplegia non ambulatory HTN HLD Hypothyroid PAST SURGICAL HISTORY: Spina bifida surgery. Stark's cyst removal. Knee surgery. Ankle surgery. 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 ROS: As noted in HPI, otherwise 11pt ROS of systems reviewed and remarkable only for LMP 01/19/19. PE: GEN: 43yoF, appears stated age. No acute distress. Alert and oriented x 3. Pleasant, interactive. HEENT: Normocephalic, atraumatic. Sclera are nonicteric. Conjunctiva without injection. No facial asymmetry. Moist mucous membranes. CHEST: Regular rate and rhythm, +S1, +S2 LUNGS: Clear to auscultation bilaterally. No wheezes, rales, or rhonchi. ABD: Round, soft, non-tender, non-distended. +Bowel sounds throughout. No rebound or guarding. No costovertebral angle tenderness. EXT: No Left lower extremity edema appreciated. No apparent erythema or wounds of LLE. nails are overgrown Lt foot. Rt AKA flap with cap refill <2 sec. There is surrounding erythema of the wound extending up thigh. No warmth noted. There is an open surgical wound 3-4 cm in length, there are geovanna intact on remainder of wound. There is yellowish/brownish drainage noted. SKIN: [place], dry, warm. NEURO: Alert and oriented x 3. No focal deficits appreciated. US neg for DVT. XR Knee Postsurgical changes and findings as described above. Differential diagnosis would include postsurgical changes as well as possible underlying postsurgical infection including subcutaneous emphysema and swelling. 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 She has been following with Dr Jacobo for wound management last seen there 01/12/19. She was admitted as per Hospitalist for Rt AKA infection and placed on IV Vanco Zosyn. Vascular Surgery is consulted for further evaluation of Rt AKA wound. 1. S/P Rt AKA with wound infection. The pt is afebrile. WBC 9.7. BC x 2 pending. WC pending. Continue with IV Zosyn/IV Vanco with pharmacy dosing. The pt is reviewed and examined as per Dr Altamirano. Plan is to proceed with wound debridement later today or AM 01/21/19. Plan for deep tissue wound culture. Currently recommend wound care with Q6hr with Dakins solution. Monitor. 2. HLD. Lipitor. 3. HTN. HCTZ. BP 126/60. 4. Hypothyroid. Cont supplement. 5. Anemia. Hgb 8.4. eval as per primary team, Fe studies B12/folate pending. FOB pending. Monitor. DVT prophylaxis. SQ Heparin currently. Thank you for your consultation. We will continue to follow along with you. Vital Signs/I&O Vital Signs Date Time Temp Pulse Resp B/P (MAP) Pulse Ox O2 Delivery O2 Flow Rate FiO2 01/20/19 06:00 98.0 102 16 126/60 (82) 99 01/19/19 15:38 Room Air I&O- Last 24 Hours up to 6 AM 01/20/19 06:00 Intake Total 530 ml Balance 530 ml Laboratory Data Labs 24H Laboratory Tests 2 01/19/19 19:10: Immature Granulocyte % (Auto) 0.7, White Blood Count 11.7H, Red Blood Count 3.88L, Hemoglobin 9.5L, Hematocrit 31.2L, Mean Corpuscular Volume 80.4, Mean Corpuscular Hemoglobin 24.5L, Mean Corpuscular Hemoglobin Concent 30.4L, Red Cell Distribution Width 17.2H, Platelet Count 540H, Neutrophils (%) (Auto) 75.5H, Lymphocytes (%) (Auto) 18.3L, Monocytes (%) (Auto) 3.7, Eosinophils (%) (Auto) 1.5, Basophils (%) (Auto) 0.3, Neutrophils # (Auto) 8.9H, Lymphocytes # (Auto) 2.1, Monocytes # (Auto) 0.4, Eosinophils # (Auto) 0.2, Basophils # (Auto) 0.0, Nucleated Red Blood Cells % (auto) 0.0, Anion Gap 7L, Glomerular Filtration Rate > 60.0, Blood Urea Nitrogen 7, Creatinine 0.50L, Sodium Level 139, Potassium Level 3.9, Chloride Level 106, Carbon Dioxide Level 26, Calcium Level 8.5 01/20/19 05:29: Nucleated Red Blood Cells % (auto) 0.0, Anion Gap 7L, Glomerular Filtration Rate > 60.0, Blood Urea Nitrogen 6L, Creatinine 0.57, Sodium Level 140, Potassium Level 3.3L, Chloride Level 106, Carbon Dioxide Level 27, Calcium Level 8.1L, Magnesium Level 2.4 CBC/BMP Laboratory Tests 01/19/19 19:10 Red Blood Count 3.88 L, Mean Corpuscular Volume 80.4, Mean Corpuscular Hemoglobin 24.5 L, Mean Corpuscular Hemoglobin Concent 30.4 L, Red Cell Distribution Width 17.2 H, Neutrophils (%) (Auto) 75.5 H, Lymphocytes (%) (Auto) 18.3 L, Monocytes (%) (Auto) 3.7, Eosinophils (%) (Auto) 1.5, Basophils (%) (Auto) 0.3, Neutrophils # (Auto) 8.9 H, Lymphocytes # (Auto) 2.1, Monocytes # (Auto) 0.4, Eosinophils # (Auto) 0.2, Basophils # (Auto) 0.0, Calcium Level 8.5 01/20/19 05:29 Red Blood Count 3.48 L, Mean Corpuscular Volume 81.0, Mean Corpuscular Hemoglobin 24.1 L, Mean Corpuscular Hemoglobin Concent 29.8 L, Red Cell Distribution Width 17.4 H, Calcium Level 8.1 L Microbiology Microbiology 01/19/19 Blood Culture, Received Pending 01/19/19 Blood Culture, Received Pending 01/19/19 Anaerobic Culture, Received Pending 01/19/19 Gram Stain - Final, Resulted 01/19/19 Wound Culture, Resulted Pending Allergies Coded Allergies: Sulfa (Sulfonamide Antibiotics) (Verified Allergy, Unknown, 01/19/19) betaine (Unverified Allergy, Unknown, FROM [facility], 01/19/19) Home Medications Scheduled Ascorbic Acid (Vitamin C) 500 Mg Tab, 500 MG PO DAILY, (Reported) Atorvastatin Calcium (Atorvastatin Calcium) 10 Mg Tab, 10 MG PO DAILY, (Reported) Folic Acid (Folic Acid) 1 Mg Tab, 1 MG PO DAILY, (Reported) Hydrochlorothiazide (Hydrochlorothiazide) 25 Mg Tab, 25 MG PO DAILY, (Reported) Levothyroxine Sodium (Synthroid) 175 Mcg Tab, 175 MCG PO QAM, (Reported) Multivitamins *[facility] STOCKED* (Thera M Plus *[facility] STOCKED*) 1 Tab Tab, 1 TAB PO DAILY, (Reported) Zinc Sulfate (Zinc Sulfate) 220 Mg Cap, 220 MG PO DAILY, (Reported) Scheduled PRN (Ciclopirox Olamine) 0.77 % Cre, 1 APLCT TOP PRN PRN for RASH, (Reported) APPLY UNDER BREASTS Brii Soliman Jan 20, 2019 10:31
[2019-01-20 11:43] LABS: FOLATE 10.4 NG/ML (>5.4); PERCENT SATURATION 10.5 % (13.2-45.0)
[2019-01-20] MEDS ORDERED: POTASSIUM CHLORIDE 10 MEQ SR TABLET PO ONE (12:00)
[2019-01-20] MEDS: ZINC SULFATE 220 MG CAP PO SCH (12:08)
[2019-01-20 14:00] VITALS: BP 115/59
[2019-01-20] MEDS: DAKIN'S 0.25% HALF-STRENGTH SOLN 480 ML TOP SCH ×3 (14:00→23:45)
[2019-01-20 22:00] VITALS: BP 109/56
[2019-01-21] VITALS (10 sets, daily range): BP systolic 109–120; BP diastolic 53–72
[2019-01-21] MEDS: VANCOMYCIN HCL 1,000 MG, VIAL MATE ADAPTER 1 EACH in D5W 250 ML IV SCH ×2 (01:50→14:43)
[2019-01-21] MEDS: HEPARIN SOD (PORCINE) 5000 UNITS/ML VIAL SC SCH ×3 (05:29→21:35)
[2019-01-21] MEDS: LEVOTHYROXINE 150MCG TABLET (0.15MG) PO SCH (05:29)
[2019-01-21] MEDS: PIPERACILLIN/TAZOBACTAM SOD 3.375 GM in D5W MINI-BAG PLUS 50 ML IV SCH ×3 (05:29→18:06)
[2019-01-21] MEDS: LEVOTHYROXINE 25MCG TABLET (0.025MG) PO SCH (05:29)
[2019-01-21] MEDS: DAKIN'S 0.25% HALF-STRENGTH SOLN 480 ML TOP SCH ×3 (05:30→18:00)
[2019-01-21 06:23] LABS: HEMOGLOBIN 8.9 g/dl (12.0-15.5); MEAN CORPUSCULAR HEMOGLOBIN 24.1 pg (27.0-33.0); MEAN CORPUSCULAR HGB CONC 29.7 g/dl (32.0-36.5); MEAN CORPUSCULAR VOLUME 81.1 fl (80.0-96.0); PLATELET COUNT, AUTOMATED 467 10^3/uL (150-450); WHITE BLOOD COUNT 9.3 10^3/uL (4.0-10.0)
[2019-01-21 06:47] LABS: BLOOD UREA NITROGEN 7 MG/DL (7-18); CALCIUM LEVEL 8.5 MG/DL (8.5-10.1); CARBON DIOXIDE LEVEL 30 MEQ/L (21-32); CHLORIDE LEVEL 103 MEQ/L (98-107); CREATININE FOR GFR 0.57 MG/DL (0.55-1.30); GLOMERULAR FILTRATION RATE > 60.0 (>58); GLUCOSE, FASTING 103 MG/DL (70-100); MAGNESIUM LEVEL 2.3 MG/DL (1.8-2.4); PHOSPHORUS LEVEL 3.9 MG/DL (2.5-4.9); POTASSIUM SERUM 3.4 MEQ/L (3.5-5.1); SODIUM LEVEL 140 MEQ/L (136-145)
[2019-01-21] MEDS ORDERED: MIDAZOLAM INJ 2 MG/2 ML VIAL (J2250) As Ordered ONE (08:25)
[2019-01-21] MEDS ORDERED: fentaNYL 100 MCG/2 ML INJECTION (J3010) As Ordered ONE (08:25)
[2019-01-21] MEDS ORDERED: PROPOFOL 200 MG/20 ML VIAL As Ordered ONE (08:25)
[2019-01-21] MEDS ORDERED: LIDOCAINE 2% INJ 100 MG/5 ML SDV (FOR ANES.) As Ordered ONE (08:25)
[2019-01-21] MEDS: DOCUSATE SODIUM 100 MG CAP PO SCH ×2 (09:00→21:00)
[2019-01-21] MEDS ORDERED: PERCOCET 5MG/325MG TAB PO PRN (09:45)
[2019-01-21] MEDS ORDERED: fentaNYL 100 MCG/2 ML INJECTION (J3010) IV PRN (09:45)
[2019-01-21] MEDS ORDERED: ONDANSETRON 4MG/2ML VIAL (J2405) IV PRN (09:45)
[2019-01-21] MEDS ORDERED: LR 1,000 ML IV SCH (09:45)
[2019-01-21] MEDS: ASCORBIC ACID 500 MG TAB PO SCH (09:53)
[2019-01-21] MEDS: MULTIVITAMINS/MINERALS THERAP 1 TAB PO SCH (09:53)
[2019-01-21] MEDS: FOLIC ACID 1 MG TAB PO SCH (09:54)
[2019-01-21] MEDS: ZINC SULFATE 220 MG CAP PO SCH (09:54)
[2019-01-21] MEDS: ATORVASTATIN 10 MG TAB PO SCH (09:54)
[2019-01-21] MEDS: hydroCHLOROthiazide 25 MG TAB PO SCH (09:54)
--- NOTE | 2019-01-21 14:55 | IPNPDOC ---
Date Seen The patient was seen on 01/21/19. Progress Note SUBJECTIVE: Patient is a 43 yo female who was admitted for post surgical wound infection of the R AKA. She is on vanc and zosyn, without any complaint of pain or fever s/p debridement this morning, pending wound vac per pt. OBJECTIVE Physical exam GEN: NAD, obese, wheelchair bound HEENT: PERRLA, neck supple, EOMI, trachea midline, normal conjunctiva CVS: no chest wall tenderness, normal S1, S2, regular rate and rhythm, no edema, no JVD RESP: no acute distress, LCTAB, no wheezes, rhonchi, or crackles Abd: soft, nontender, nondistended, normal bowel sound, no guarding : no cva tenderness, no suprapubic tenderness MSK : wheelchair bound, paraplegic - no movement or sensation in lower extremities, FROM in UE, joint swelling or tenderness, right AKA in clean dressing this morning Neuro: paraplegic Psych: AOA x3, normal mood, good judgement and insight LABORATORY DATA, IMAGING STUDIES, MICROBIOLOGY: Please see below. RIGHT LE XRAY Impression: Postsurgical changes and findings as described above. Differential diagnosis would include postsurgical changes as well as possible underlying postsurgical infection including subcutaneous emphysema and swelling. DVT prophylaxis ordered?: [yes] ASSESSMENT AND PLAN: Infection of right AKA wound cx- heavy growth of sensitive pseudomonas - c/w vanc and zosyn day 3 - vanc trough 19- c/w same dose - Dr. Altamirano following HYpothyroidism c/w levothyroxine HTN c/w hctz will monitor bp in light of infection Anemia mixed etiology - AOCD, but, may have a component of ALEXANDREA low b12 normal - jerrica order po supplemt stasrt ferrous sulfate tid DISPOSITION: Pending wound vac full code VS, I&O, 24H, Fishbone Vital Signs/I&O Vital Signs Date Time Temp Pulse Resp B/P (MAP) Pulse Ox O2 Delivery O2 Flow Rate FiO2 01/21/19 13:30 97.7 98 20 111/53 (72) 99 01/19/19 15:38 Room Air I&O- Last 24 Hours up to 6 AM 01/21/19 06:00 Intake Total 2280 ml Balance 2280 ml Laboratory Data 24H LABS Laboratory Tests 2 01/21/19 06:08: Nucleated Red Blood Cells % (auto) 0.0, Anion Gap 7L, Glomerular Filtration Rate > 60.0, Blood Urea Nitrogen 7, Creatinine 0.57, Sodium Level 140, Potassium Level 3.4L, Chloride Level 103, Carbon Dioxide Level 30, Calcium Level 8.5, Phosphorus Level 3.9, Magnesium Level 2.3 01/21/19 12:48: Vancomycin Level Trough 19.1 CBC/BMP Laboratory Tests 01/21/19 06:08 Red Blood Count 3.70 L, Mean Corpuscular Volume 81.1, Mean Corpuscular Hemoglobin 24.1 L, Mean Corpuscular Hemoglobin Concent 29.7 L, Red Cell Distribution Width 17.3 H, Calcium Level 8.5 Microbiology Microbiology 01/19/19 Blood Culture - Preliminary, Resulted No growth after 24 hours . All specim... 01/19/19 Blood Culture - Preliminary, Resulted No growth after 24 hours . All specim... 01/19/19 Anaerobic Culture, Received Pending 01/19/19 Gram Stain - Final, Resulted 01/19/19 Wound Culture - Preliminary, Resulted Pseudomonas Aeruginosa Streptococcus Group G JENELLE LANDIS MD Jan 21, 2019 14:55
[2019-01-21] MEDS: FERROUS SULFATE 325MG TAB PO SCH ×2 (16:26→21:35)
[2019-01-22] MEDS: VANCOMYCIN HCL 1,000 MG, VIAL MATE ADAPTER 1 EACH in D5W 250 ML IV SCH ×2 (02:13→14:44)
[2019-01-22 02:30] VITALS: BP 99/58
[2019-01-22] MEDS: HEPARIN SOD (PORCINE) 5000 UNITS/ML VIAL SC SCH ×3 (05:39→21:45)
[2019-01-22] MEDS: LEVOTHYROXINE 25MCG TABLET (0.025MG) PO SCH (05:40)
[2019-01-22] MEDS: PIPERACILLIN/TAZOBACTAM SOD 3.375 GM in D5W MINI-BAG PLUS 50 ML IV SCH ×6 (05:40→23:34)
[2019-01-22] MEDS: LEVOTHYROXINE 150MCG TABLET (0.15MG) PO SCH (05:40)
[2019-01-22] MEDS: DAKIN'S 0.25% HALF-STRENGTH SOLN 480 ML TOP SCH ×5 (05:41→23:34)
[2019-01-22 06:08] LABS: HEMATOCRIT 29.2 % (36.0-47.0); HEMOGLOBIN 8.6 g/dl (12.0-15.5); MEAN CORPUSCULAR HEMOGLOBIN 23.5 pg (27.0-33.0); MEAN CORPUSCULAR HGB CONC 29.5 g/dl (32.0-36.5); MEAN CORPUSCULAR VOLUME 79.8 fl (80.0-96.0); PLATELET COUNT, AUTOMATED 481 10^3/uL (150-450); RED BLOOD COUNT 3.66 10^6/uL (4.00-5.40); WHITE BLOOD COUNT 9.6 10^3/uL (4.0-10.0)
[2019-01-22 06:56] LABS: BLOOD UREA NITROGEN 8 MG/DL (7-18); CALCIUM LEVEL 8.4 MG/DL (8.5-10.1); CARBON DIOXIDE LEVEL 28 MEQ/L (21-32); CHLORIDE LEVEL 102 MEQ/L (98-107); CREATININE FOR GFR 0.62 MG/DL (0.55-1.30); GLOMERULAR FILTRATION RATE > 60.0 (>58); GLUCOSE, FASTING 97 MG/DL (70-100); MAGNESIUM LEVEL 2.3 MG/DL (1.8-2.4); PHOSPHORUS LEVEL 3.6 MG/DL (2.5-4.9); POTASSIUM SERUM 3.2 MEQ/L (3.5-5.1); SODIUM LEVEL 139 MEQ/L (136-145)
[2019-01-22] MEDS ORDERED: POTASSIUM CHLORIDE 10 MEQ SR TABLET PO ONE (08:15)
[2019-01-22] MEDS: DOCUSATE SODIUM 100 MG CAP PO SCH ×3 (09:00→21:00)
[2019-01-22] MEDS: hydroCHLOROthiazide 25 MG TAB PO SCH (09:18)
[2019-01-22] MEDS: KCL 40MEQ IN D5/0.45NS 1000ML 1,000 ML IV SCH ×2 (09:18→14:16)
[2019-01-22] MEDS: ZINC SULFATE 220 MG CAP PO SCH (09:18)
[2019-01-22] MEDS: ASCORBIC ACID 500 MG TAB PO SCH (09:19)
[2019-01-22] MEDS: FERROUS SULFATE 325MG TAB PO SCH ×3 (09:19→21:44)
[2019-01-22] MEDS: MULTIVITAMINS/MINERALS THERAP 1 TAB PO SCH (09:19)
[2019-01-22] MEDS: ATORVASTATIN 10 MG TAB PO SCH (09:19)
[2019-01-22] MEDS: FOLIC ACID 1 MG TAB PO SCH (09:19)
[2019-01-22 10:30] VITALS: BP 112/66
[2019-01-22 14:00] VITALS: BP 124/71
--- NOTE | 2019-01-22 16:19 | IPNPDOC ---
Date Seen The patient was seen on 01/22/19. Progress Note SUBJECTIVE: Patient is a 43 yo female who was admitted for post surgical wound infection of the R AKA. She is on vanc and zosyn, without any complaint of pain or fever s/p debridement this morning, pending wound vac per pt. Patient had no complaint this morning. Patient seems well supported with multiple family members at bedside. OBJECTIVE Physical exam GEN: NAD, obese, wheelchair bound HEENT: PERRLA, neck supple, EOMI, trachea midline, normal conjunctiva CVS: no chest wall tenderness, normal S1, S2, regular rate and rhythm, no edema, no JVD RESP: no acute distress, LCTAB, no wheezes, rhonchi, or crackles Abd: soft, nontender, nondistended, normal bowel sound, no guarding : no cva tenderness, no suprapubic tenderness MSK : wheelchair bound, paraplegic - no movement or sensation in lower extremities, FROM in UE, joint swelling or tenderness, right AKA in clean dressing this morning Neuro: paraplegic Psych: AOA x3, normal mood, good judgement and insight LABORATORY DATA, IMAGING STUDIES, MICROBIOLOGY: Please see below. RIGHT LE XRAY Impression: Postsurgical changes and findings as described above. Differential diagnosis would include postsurgical changes as well as possible underlying postsurgical infection including subcutaneous emphysema and swelling. DVT prophylaxis ordered?: [yes] ASSESSMENT AND PLAN: Infection of right AKA wound cx- heavy growth of sensitive pseudomonas and group g strep - c/w vanc and zosyn day 4- - vanc trough 19- c/w same dose - would like to dc vanc since mrsa not present on cx, if surgery is ok with it - Dr. Altamirano following HYpothyroidism c/w levothyroxine HTN c/w hctz will monitor bp in light of infection Anemia mixed etiology - AOCD, but, may have a component of ALEXANDREA low b12 normal - jerrica order po supplemt c/w ferrous sulfate tid DISPOSITION: Pending wound vac full code VS, I&O, 24H, Fishbone Vital Signs/I&O Vital Signs Date Time Temp Pulse Resp B/P (MAP) Pulse Ox O2 Delivery O2 Flow Rate FiO2 01/22/19 14:00 98.0 96 18 124/71 (88) 97 01/19/19 15:38 Room Air I&O- Last 24 Hours up to 6 AM 01/22/19 06:00 Intake Total 2815 ml Output Total 25 ml Balance 2790 ml Laboratory Data 24H LABS Laboratory Tests 2 01/22/19 05:39: Nucleated Red Blood Cells % (auto) 0.0, Anion Gap 9, Glomerular Filtration Rate > 60.0, Blood Urea Nitrogen 8, Creatinine 0.62, Sodium Level 139, Potassium Level 3.2L, Chloride Level 102, Carbon Dioxide Level 28, Calcium Level 8.4L, Phosphorus Level 3.6, Magnesium Level 2.3 01/22/19 12:42: Vancomycin Level Trough 15.0 CBC/BMP Laboratory Tests 01/22/19 05:39 Red Blood Count 3.66 L, Mean Corpuscular Volume 79.8 L, Mean Corpuscular He moglobin 23.5 L, Mean Corpuscular Hemoglobin Concent 29.5 L, Red Cell Distribution Width 17.6 H, Calcium Level 8.4 L Microbiology Microbiology 01/19/19 Blood Culture - Preliminary, Resulted No Growth after 48 hours. All Specime... 01/19/19 Blood Culture - Preliminary, Resulted No Growth after 48 hours. All Specime... 01/19/19 Anaerobic Culture - Final, Complete 01/19/19 Gram Stain - Final, Complete 01/19/19 Wound Culture - Final, Complete Pseudomonas Aeruginosa Streptococcus Group G JENELLE LANDIS MD Jan 22, 2019 16:19
[2019-01-22 22:00] VITALS: BP 117/65
[2019-01-23] MEDS: VANCOMYCIN HCL 1,000 MG, VIAL MATE ADAPTER 1 EACH in D5W 250 ML IV SCH (01:06)
[2019-01-23] MEDS: HEPARIN SOD (PORCINE) 5000 UNITS/ML VIAL SC SCH ×3 (05:44→20:03)
[2019-01-23] MEDS: PIPERACILLIN/TAZOBACTAM SOD 3.375 GM in D5W MINI-BAG PLUS 50 ML IV SCH ×4 (05:44→23:03)
[2019-01-23] MEDS: LEVOTHYROXINE 25MCG TABLET (0.025MG) PO SCH (05:44)
[2019-01-23] MEDS: LEVOTHYROXINE 150MCG TABLET (0.15MG) PO SCH (05:44)
[2019-01-23] MEDS: DAKIN'S 0.25% HALF-STRENGTH SOLN 480 ML TOP SCH ×4 (05:45→23:03)
[2019-01-23 06:09] LABS: HEMATOCRIT 28.5 % (36.0-47.0); HEMOGLOBIN 8.4 g/dl (12.0-15.5); MEAN CORPUSCULAR HEMOGLOBIN 23.6 pg (27.0-33.0); MEAN CORPUSCULAR HGB CONC 29.5 g/dl (32.0-36.5); MEAN CORPUSCULAR VOLUME 80.1 fl (80.0-96.0); PLATELET COUNT, AUTOMATED 499 10^3/uL (150-450); RED BLOOD COUNT 3.56 10^6/uL (4.00-5.40); WHITE BLOOD COUNT 9.5 10^3/uL (4.0-10.0)
[2019-01-23 06:30] LABS: BLOOD UREA NITROGEN 7 MG/DL (7-18); CALCIUM LEVEL 8.5 MG/DL (8.5-10.1); CARBON DIOXIDE LEVEL 29 MEQ/L (21-32); CHLORIDE LEVEL 102 MEQ/L (98-107); CREATININE FOR GFR 0.64 MG/DL (0.55-1.30); GLOMERULAR FILTRATION RATE > 60.0 (>58); GLUCOSE, FASTING 107 MG/DL (70-100); MAGNESIUM LEVEL 2.2 MG/DL (1.8-2.4); PHOSPHORUS LEVEL 3.9 MG/DL (2.5-4.9); POTASSIUM SERUM 3.3 MEQ/L (3.5-5.1); SODIUM LEVEL 139 MEQ/L (136-145)
--- NOTE | 2019-01-23 08:57 | IPNPDOC ---
Date Seen The patient was seen on 01/23/19. 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 She has been following with Dr Jacobo for wound management last seen there 01/12/19. She was admitted as per Hospitalist for Rt AKA infection and placed on IV Vanco Zosyn. Vascular Surgery is consulted for further evaluation of Rt AKA wound. The pt is s/p debridement of Rt AKA as per Dr Altamirano 01/21/19. The pt denies pain. States drainage has been improved. Denies warmth, tenderness. Denies any weakness, fatigue, Headache, Chest Pain, Shortness of breath, cough, palpitations, abdominal pain, N/V/D or changes in bowel or bladder habits. PMH spina bifida paraplegia non ambulatory HTN HLD Hypothyroid PAST SURGICAL HISTORY: Spina bifida surgery. Stark's cyst removal. Knee surgery. Ankle surgery. 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 No acute distress. Alert and oriented x 3. Pleasant, interactive. HEENT: Normocephalic, atraumatic. Moist mucous membranes. CHEST: Regular rate and rhythm, +S1, +S2 LUNGS: Clear to auscultation bilaterally. No wheezes, rales, or rhonchi. ABD: Round, soft, non-tender, non-distended. +Bowel sounds throughout. EXT: No Left lower extremity edema appreciated. No apparent erythema or wounds of LLE. nails are overgrown Lt foot. Rt AKA flap with cap refill <2 sec. No warmth/erythema noted. There is an open surgical wound with packing, tissue pink in color, scant amt of light yellow drainage. SKIN: [place], dry, warm. NEURO: Alert and oriented x 3. No focal deficits appreciated. US neg for DVT. XR Knee Postsurgical changes and findings as described above. Differential diagnosis would include postsurgical changes as well as possible underlying postsurgical infection including subcutaneous emphysema and swelling. 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 She has been following with Dr Jacobo for wound management last seen there 01/12/19. She was admitted as per Hospitalist for Rt AKA infection and placed on IV Vanco Zosyn. Vascular Surgery is consulted for further evaluation of Rt AKA wound. 1. S/P Rt AKA with wound infection. The pt is afebrile. WBC 9.7. BC x 2 neg. WC WOUND CULTURE Final Organism 1 PSEUDOMONAS AERUGINOSA QUANTITY OF GROWTH HEAVY Organism 2 STREPTOCOCCUS GROUP G QUANTITY OF GROWTH HEAVY Continue with IV Zosyn/IV Vanco with pharmacy dosing. S/P wound debridement 01/21/19. The pt is reviewed and examined as per Dr Altamirano. Plan for additional wound debridement 01/24/19 with wound vac placement. Currently continue wound care with Q6hr with Dakins solution. Plan for d/c home with wound vac and cont'd outpt f/u with Dr Jacobo. Monitor. 2. HLD. Lipitor. 3. HTN. HCTZ. 4. Hypothyroid. Cont supplement. 5. Anemia. Hgb 8.4. Fe supplement/folic acid suppl. Monitor. DVT prophylaxis. SQ Heparin currently. VS, I&O, 24H, Fishbone Vital Signs/I&O Vital Signs Date Time Temp Pulse Resp B/P (MAP) Pulse Ox O2 Delivery O2 Flow Rate FiO2 01/23/19 06:00 98.2 87 20 97 01/22/19 22:00 117/65 (82) 01/19/19 15:38 Room Air I&O- Last 24 Hours up to 6 AM 01/23/19 06:00 Intake Total 4770 ml Output Total 0 ml Balance 4770 ml Laboratory Data 24H LABS Laboratory Tests 2 01/22/19 12:42: Vancomycin Level Trough 15.0 01/23/19 05:40: Nucleated Red Blood Cells % (auto) 0.0, Anion Gap 8, Glomerular Filtration Rate > 60.0, Blood Urea Nitrogen 7, Creatinine 0.64, Sodium Level 139, Potassium Level 3.3L, Chloride Level 102, Carbon Dioxide Level 29, Calcium Level 8.5, Phosphorus Level 3.9, Magnesium Level 2.2 CBC/BMP Laboratory Tests 01/23/19 05:40 Red Blood Count 3.56 L, Mean Corpuscular Volume 80.1, Mean Corpuscular Hemoglobin 23.6 L, Mean Corpuscular Hemoglobin Concent 29.5 L, Red Cell Distribution Width 17.6 H, Calcium Level 8.5 Microbiology Microbiology 01/19/19 Blood Culture - Preliminary, Resulted No Growth after 72 hours. All specime... 01/19/19 Blood Culture - Preliminary, Resulted No Growth after 72 hours. All specime... 01/19/19 Anaerobic Culture - Final, Complete 01/19/19 Gram Stain - Final, Complete 01/19/19 Wound Culture - Final, Complete Pseudomonas Aeruginosa Streptococcus Group G Brii Soliman Jan 23, 2019 08:57
[2019-01-23] MEDS: DOCUSATE SODIUM 100 MG CAP PO SCH ×2 (09:00→20:03)
[2019-01-23] MEDS: ASCORBIC ACID 500 MG TAB PO SCH (10:11)
[2019-01-23] MEDS: ZINC SULFATE 220 MG CAP PO SCH (10:11)
[2019-01-23] MEDS: FERROUS SULFATE 325MG TAB PO SCH ×3 (10:11→20:02)
[2019-01-23] MEDS: MULTIVITAMINS/MINERALS THERAP 1 TAB PO SCH (10:11)
[2019-01-23] MEDS: ATORVASTATIN 10 MG TAB PO SCH (10:11)
[2019-01-23] MEDS: hydroCHLOROthiazide 25 MG TAB PO SCH (10:11)
[2019-01-23] MEDS: FOLIC ACID 1 MG TAB PO SCH (10:12)
[2019-01-23 14:00] VITALS: BP 118/64
--- NOTE | 2019-01-23 16:56 | IPNPDOC ---
Date Seen The patient was seen on 01/23/19. Progress Note SUBJECTIVE: Patient is a 43 yo female who was admitted for post surgical wound infection of the R AKA. She is on vanc and zosyn, without any complaint of pain or fever s/p debridement this morning, pending wound vac placement. Patient had no complaint this morning. OBJECTIVE Physical exam GEN: NAD, obese, wheelchair bound HEENT: PERRLA, neck supple, EOMI, trachea midline, normal conjunctiva CVS: no chest wall tenderness, normal S1, S2, regular rate and rhythm, trace edema, no JVD RESP: no acute distress, LCTAB, no wheezes, rhonchi, or crackles Abd: soft, nontender, nondistended, normal bowel sound, no guarding : no cva tenderness, no suprapubic tenderness MSK : wheelchair bound, paraplegic - no movement or sensation in lower extremities, FROM in UE, joint swelling or tenderness, right AKA in clean dressing this morning , congenital leg deformity Neuro: paraplegic Psych: AOA x3, normal mood, good judgement and insight LABORATORY DATA, IMAGING STUDIES, MICROBIOLOGY: Please see below. RIGHT LE XRAY Impression: Postsurgical changes and findings as described above. Differential diagnosis would include postsurgical changes as well as possible underlying postsurgical infection including subcutaneous emphysema and swelling. DVT prophylaxis ordered?: [yes] ASSESSMENT AND PLAN: Infection of right AKA wound cx- heavy growth of sensitive pseudomonas and group g strep - c/w zosyn day 5- - dc vanc since mrsa nares is negative and wound cx has not shown mrsa - plan for debridement again tomorrow and then wound vac in a few days - Dr. Altamirano following HYpothyroidism c/w levothyroxine HTN c/w hctz will monitor bp in light of infection Anemia mixed etiology - AOCD, but, may have a component of ALEXANDREA low b12 normal - will give po supplement c/w ferrous sulfate tid DISPOSITION: Pending debridement tomorrow and wound vac full code VS, I&O, 24H, Fishbone Vital Signs/I&O Vital Signs Date Time Temp Pulse Resp B/P (MAP) Pulse Ox O2 Delivery O2 Flow Rate FiO2 01/23/19 14:00 97.1 100 16 118/64 (82) 96 01/19/19 15:38 Room Air I&O- Last 24 Hours up to 6 AM 4/8/19 06:00 Intake Total 4770 ml Output Total 0 ml Balance 4770 ml Laboratory Data 24H LABS Laboratory Tests 2 01/23/19 05:40: Nucleated Red Blood Cells % (auto) 0.0, Anion Gap 8, Glomerular Filtration Rate > 60.0, Blood Urea Nitrogen 7, Creatinine 0.64, Sodium Level 139, Potassium Level 3.3L, Chloride Level 102, Carbon Dioxide Level 29, Calcium Level 8.5, Phosphorus Level 3.9, Magnesium Level 2.2 CBC/BMP Laboratory Tests 01/23/19 05:40 Red Blood Count 3.56 L, Mean Corpuscular Volume 80.1, Mean Corpuscular Hemoglobin 23.6 L, Mean Corpuscular Hemoglobin Concent 29.5 L, Red Cell Distribution Width 17.6 H, Calcium Level 8.5 Microbiology Microbiology 01/19/19 Blood Culture - Preliminary, Resulted No Growth after 72 hours. All specime... 01/19/19 Blood Culture - Preliminary, Resulted No Growth after 72 hours. All specime... 01/23/19 Stool Occult Blood (APARNA) - Final, Complete 01/19/19 Anaerobic Culture - Final, Complete 01/19/19 Gram Stain - Final, Complete 01/19/19 Wound Culture - Final, Complete Pseudomonas Aeruginosa Streptococcus Group G JENELLE LANDIS MD Jan 23, 2019 16:56
[2019-01-23] MEDS: CYANOCOBALAMIN 500 MCG TAB PO SCH (18:01)
[2019-01-23 22:00] VITALS: BP 130/67
[2019-01-24] VITALS (9 sets, daily range): BP systolic 119–131; BP diastolic 59–79
[2019-01-24] MEDS: LEVOTHYROXINE 25MCG TABLET (0.025MG) PO SCH (05:56)
[2019-01-24] MEDS: LEVOTHYROXINE 150MCG TABLET (0.15MG) PO SCH (05:56)
[2019-01-24] MEDS: PIPERACILLIN/TAZOBACTAM SOD 3.375 GM in D5W MINI-BAG PLUS 50 ML IV SCH ×4 (05:58→23:28)
[2019-01-24] MEDS: HEPARIN SOD (PORCINE) 5000 UNITS/ML VIAL SC SCH ×3 (05:58→21:04)
[2019-01-24] MEDS: DAKIN'S 0.25% HALF-STRENGTH SOLN 480 ML TOP SCH ×2 (06:00→12:00)
[2019-01-24 06:08] LABS: HEMATOCRIT 28.4 % (36.0-47.0); HEMOGLOBIN 8.4 g/dl (12.0-15.5); MEAN CORPUSCULAR HEMOGLOBIN 23.8 pg (27.0-33.0); MEAN CORPUSCULAR HGB CONC 29.6 g/dl (32.0-36.5); MEAN CORPUSCULAR VOLUME 80.5 fl (80.0-96.0); PLATELET COUNT, AUTOMATED 502 10^3/uL (150-450); RED BLOOD COUNT 3.53 10^6/uL (4.00-5.40); WHITE BLOOD COUNT 9.4 10^3/uL (4.0-10.0)
[2019-01-24 06:33] LABS: BLOOD UREA NITROGEN 6 MG/DL (7-18); CALCIUM LEVEL 8.7 MG/DL (8.5-10.1); CARBON DIOXIDE LEVEL 30 MEQ/L (21-32); CHLORIDE LEVEL 102 MEQ/L (98-107); CREATININE FOR GFR 0.56 MG/DL (0.55-1.30); GLOMERULAR FILTRATION RATE > 60.0 (>58); GLUCOSE, FASTING 93 MG/DL (70-100); MAGNESIUM LEVEL 2.1 MG/DL (1.8-2.4); PHOSPHORUS LEVEL 4.2 MG/DL (2.5-4.9); POTASSIUM SERUM 3.2 MEQ/L (3.5-5.1); SODIUM LEVEL 140 MEQ/L (136-145)
[2019-01-24] MEDS ORDERED: POTASSIUM CHLORIDE 10 MEQ SR TABLET PO ONE (08:00)
[2019-01-24] MEDS ORDERED: KCL 40MEQ in NS 1000ML 1,000 ML IV ONE (08:00)
[2019-01-24] MEDS: CYANOCOBALAMIN 500 MCG TAB PO SCH (08:28)
[2019-01-24] MEDS: hydroCHLOROthiazide 25 MG TAB PO SCH (08:28)
[2019-01-24] MEDS: ASCORBIC ACID 500 MG TAB PO SCH (08:28)
[2019-01-24] MEDS: ATORVASTATIN 10 MG TAB PO SCH (08:28)
[2019-01-24] MEDS: FERROUS SULFATE 325MG TAB PO SCH ×3 (08:29→21:09)
[2019-01-24] MEDS: FOLIC ACID 1 MG TAB PO SCH (08:29)
[2019-01-24] MEDS: MULTIVITAMINS/MINERALS THERAP 1 TAB PO SCH (08:30)
[2019-01-24] MEDS: DOCUSATE SODIUM 100 MG CAP PO SCH ×2 (08:30→21:00)
[2019-01-24] MEDS: ZINC SULFATE 220 MG CAP PO SCH (08:30)
--- NOTE | 2019-01-24 08:58 | IPNPDOC ---
Date Seen The patient was seen on 01/24/19. 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 She has been following with Dr Jacobo for wound management last seen there 01/12/19. She was admitted as per Hospitalist for Rt AKA infection and placed on IV Vanco Zosyn. Vascular Surgery is consulted for management of Rt AKA wound. The pt is s/p debridement of Rt AKA as per Dr Altamirano 01/21/19. The pt denies pain currently. NPO for debridement today. States drainage has been improved. Denies warmth, tenderness. Denies any weakness, fatigue, Headache, Chest Pain, Shortness of breath, cough, palpitations, abdominal pain, N/V/D or changes in bowel or bladder habits. PMH spina bifida paraplegia non ambulatory HTN HLD Hypothyroid PAST SURGICAL HISTORY: Spina bifida surgery. Stark's cyst removal. Knee surgery. Ankle surgery. 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 Alert and oriented x 3. Pleasant, interactive. HEENT: Normocephalic, atraumatic. Moist mucous membranes. CHEST: Regular rate and rhythm, +S1, +S2 LUNGS: Clear to auscultation bilaterally. No wheezes, rales, or rhonchi. ABD: Round, soft, non-tender, non-distended. +Bowel sounds throughout. EXT: No Left lower extremity edema appreciated. No apparent erythema or wounds of LLE. nails are overgrown Lt foot. Rt AKA, No warmth/erythema noted. There is an open surgical wound with packing, tissue pink in color, scant amt of light yellow drainage. SKIN: [place], dry, warm. NEURO: Alert and oriented x 3. No focal deficits appreciated. US neg for DVT. XR Knee Postsurgical changes and findings as described above. Differential diagnosis would include postsurgical changes as well as possible underlying postsurgical infection including subcutaneous emphysema and swelling. 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 She has been following with Dr Jacobo for wound management last seen there 01/12/19. She was admitted as per Hospitalist for Rt AKA infection and placed on IV Vanco Zosyn. Vascular Surgery is consulted for further evaluation of Rt AKA wound. 1. S/P Rt AKA with wound infection. The pt is afebrile. WBC 9.4. BC x 2 neg. WC WOUND CULTURE Final Organism 1 PSEUDOMONAS AERUGINOSA QUANTITY OF GROWTH HEAVY Organism 2 STREPTOCOCCUS GROUP G QUANTITY OF GROWTH HEAVY Continue with IV Zosyn/IV Vanco with pharmacy dosing. S/P wound debridement 01/21/19. The pt is reviewed and examined as per Dr Altamirano. Plan for additional wound debridement 01/24/19 with wound vac placement. Currently continue wound care with Q6hr with Dakins solution. Plan for d/c home with wound vac and cont'd outpt f/u with Dr Jacobo. Monitor. 2. HLD. Lipitor. 3. HTN. HCTZ. 4. Hypothyroid. Cont supplement. 5. Anemia. Hgb 8.4. Fe supplement/folic acid suppl. Monitor. 6. Hypokalemia. mag WNL. Mgmt as per primary team. S/P supplement. DVT prophylaxis. SQ Heparin currently. VS, I&O, 24H, Fishbone Vital Signs/I&O Vital Signs Date Time Temp Pulse Resp B/P (MAP) Pulse Ox O2 Delivery O2 Flow Rate FiO2 01/24/19 06:00 97.0 83 18 125/59 (81) 97 01/19/19 15:38 Room Air I&O- Last 24 Hours up to 6 AM 01/24/19 06:00 Intake Total 180 ml Balance 180 ml Laboratory Data 24H LABS Laboratory Tests 2 01/24/19 05:26: Nucleated Red Blood Cells % (auto) 0.0, Anion Gap 8, Glomerular Filtration Rate > 60.0, Blood Urea Nitrogen 6L, Creatinine 0.56, Sodium Level 140, Potassium Level 3.2L, Chloride Level 102, Carbon Dioxide Level 30, Calcium Level 8.7, Phosphorus Level 4.2, Magnesium Level 2.1 CBC/BMP Laboratory Tests 01/24/19 05:26 Red Blood Count 3.53 L, Mean Corpuscular Volume 80.5, Mean Corpuscular Hemoglobin 23.8 L, Mean Corpuscular Hemoglobin Concent 29.6 L, Red Cell Dist ribution Width 17.9 H, Calcium Level 8.7 Microbiology Microbiology 01/19/19 Blood Culture - Preliminary, Resulted No Growth after 72 hours. All specime... 01/19/19 Blood Culture - Preliminary, Resulted No Growth after 72 hours. All specime... 01/23/19 Stool Occult Blood (APARNA) - Final, Complete 01/19/19 Anaerobic Culture - Final, Complete 01/19/19 Gram Stain - Final, Complete 01/19/19 Wound Culture - Final, Complete Pseudomonas Aeruginosa Streptococcus Group G Brii Soliman Jan 24, 2019 08:58
[2019-01-24] MEDS ORDERED: LIDOCAINE 2% INJ 100 MG/5 ML SDV (FOR ANES.) As Ordered ONE (12:46)
[2019-01-24] MEDS ORDERED: fentaNYL 100 MCG/2 ML INJECTION (J3010) As Ordered ONE (12:46)
[2019-01-24] MEDS ORDERED: MIDAZOLAM INJ 2 MG/2 ML VIAL (J2250) As Ordered ONE (12:46)
[2019-01-24] MEDS ORDERED: PROPOFOL 200 MG/20 ML VIAL As Ordered ONE (12:46)
--- NOTE | 2019-01-24 13:27 | IPNPDOC ---
Date Seen The patient was seen on 01/24/19. Progress Note SUBJECTIVE: Patient is a 43 yo female who was admitted for post surgical wound infection of the R AKA. She was on zosyn, vanc was dc since wound cx did not grow mrsa. She has no complaint of pain or fever s/p debridement on 01/21, pending debridement again today and wound vac placement. Patient had no complaint this morning. OBJECTIVE Physical exam GEN: NAD, obese, wheelchair bound HEENT: PERRLA, neck supple, EOMI, trachea midline, normal conjunctiva CVS: no chest wall tenderness, normal S1, S2, regular rate and rhythm, trace edema, no JVD RESP: no acute distress, LCTAB, no wheezes, rhonchi, or crackles Abd: soft, nontender, nondistended, normal bowel sound, no guarding : no cva tenderness, no suprapubic tenderness MSK : wheelchair bound, paraplegic - no movement or sensation in lower extremities, FROM in UE, joint swelling or tenderness, right AKA in clean dressing this morning , congenital leg deformity Neuro: paraplegic Psych: AOA x3, normal mood, good judgement and insight LABORATORY DATA, IMAGING STUDIES, MICROBIOLOGY: Please see below. RIGHT LE XRAY Impression: Postsurgical changes and findings as described above. Differential diagnosis would include postsurgical changes as well as possible underlying postsurgical infection including subcutaneous emphysema and swelling. DVT prophylaxis ordered?: [yes] ASSESSMENT AND PLAN: Infection of right AKA wound cx- heavy growth of sensitive pseudomonas and group g strep - c/w zosyn day 6- - s/p (DC) vanc since mrsa nares is negative and wound cx has not shown mrsa - plan for debridement again and wound vac today - Dr. Altamirano following - HYpothyroidism c/w levothyroxine HTN c/w hctz will monitor bp in light of infection Anemia mixed etiology - AOCD, but, may have a component of ALEXANDREA low b12 normal -c/w po b12 until 02/01 c/w ferrous sulfate tid DISPOSITION: Pending debridement tomorrow and wound vac full code VS, I&O, 24H, Fishbone Vital Signs/I&O Vital Signs Date Time Temp Pulse Resp B/P (MAP) Pulse Ox O2 Delivery O2 Flow Rate FiO2 01/24/19 13:13 84 18 108/60 (76) 97 01/24/19 13:03 97.7 01/19/19 15:38 Room Air I&O- Last 24 Hours up to 6 AM 01/24/19 06:00 Intake Total 180 ml Balance 180 ml Laboratory Data 24H LABS Laboratory Tests 2 01/24/19 05:26: Nucleated Red Blood Cells % (auto) 0.0, Anion Gap 8, Glomerular Filtration Rate > 60.0, Blood Urea Nitrogen 6L, Creatinine 0.56, Sodium Level 140, Potassium Level 3.2L, Chloride Level 102, Carbon Dioxide Level 30, Calcium Level 8.7, Phosphorus Level 4.2, Magnesium Level 2.1 CBC/BMP Laboratory Tests 01/24/19 05:26 Red Blood Count 3.53 L, Mean Corpuscular Volume 80.5, Mean Corpuscular Hemoglobin 23.8 L, Mean Corpuscular Hemoglobin Concent 29.6 L, Red Cell Distribution Width 17.9 H, Calcium Level 8.7 Microbiology Microbiology 01/19/19 Blood Culture - Preliminary, Resulted No Growth after 72 hours. All specime... 01/19/19 Blood Culture - Preliminary, Resulted No Growth after 72 hours. All specime... 01/23/19 Stool Occult Blood (APARNA) - Final, Complete 01/19/19 Anaerobic Culture - Final, Complete 01/19/19 Gram Stain - Final, Complete 01/19/19 Wound Culture - Final, Complete Pseudomonas Aeruginosa Streptococcus Group G JENELLE LANDIS MD Jan 24, 2019 13:27
[2019-01-25 02:00] VITALS: BP 125/66
[2019-01-25] MEDS: HEPARIN SOD (PORCINE) 5000 UNITS/ML VIAL SC SCH ×3 (05:29→20:09)
[2019-01-25] MEDS: LEVOTHYROXINE 150MCG TABLET (0.15MG) PO SCH (05:34)
[2019-01-25] MEDS: LEVOTHYROXINE 25MCG TABLET (0.025MG) PO SCH (05:34)
[2019-01-25] MEDS: PIPERACILLIN/TAZOBACTAM SOD 3.375 GM in D5W MINI-BAG PLUS 50 ML IV SCH ×4 (05:35→23:04)
[2019-01-25 06:00] VITALS: BP 120/66
[2019-01-25] MEDS: DOCUSATE SODIUM 100 MG CAP PO SCH ×2 (09:00→20:09)
[2019-01-25] MEDS: ATORVASTATIN 10 MG TAB PO SCH (09:01)
[2019-01-25] MEDS: ZINC SULFATE 220 MG CAP PO SCH (09:01)
[2019-01-25] MEDS: hydroCHLOROthiazide 25 MG TAB PO SCH (09:01)
[2019-01-25] MEDS: FOLIC ACID 1 MG TAB PO SCH (09:02)
[2019-01-25] MEDS: FERROUS SULFATE 325MG TAB PO SCH ×3 (09:03→20:09)
[2019-01-25] MEDS: MULTIVITAMINS/MINERALS THERAP 1 TAB PO SCH (09:03)
[2019-01-25] MEDS: CYANOCOBALAMIN 500 MCG TAB PO SCH (09:03)
[2019-01-25] MEDS: ASCORBIC ACID 500 MG TAB PO SCH (09:03)
[2019-01-25 10:00] VITALS: BP 120/68
--- NOTE | 2019-01-25 11:50 | IPNPDOC ---
Date Seen The patient was seen on 01/25/19. 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 She has been following with Dr Jacobo for wound management last seen there 01/12/19. She was admitted as per Hospitalist for Rt AKA infection and placed on IV Vanco/Zosyn. Vascular Surgery is consulted for management of Rt AKA wound. The pt is s/p debridement of Rt AKA as per Dr Altamirano 01/21/19, 01/24/19. Wound vac is currently in place. The pt denies pain currently. Denies pain, warmth, tenderness. Denies any weakness, fatigue, Headache, Chest Pain, Shortness of breath, cough, palpitations, abdominal pain, N/V/D or changes in bowel or bladder habits. PMH spina bifida paraplegia non ambulatory HTN HLD Hypothyroid PAST SURGICAL HISTORY: Spina bifida surgery. Stark's cyst removal. Knee surgery. Ankle surgery. 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 Alert and oriented x 3. Pleasant, interactive. HEENT: Normocephalic, atraumatic. Moist mucous membranes. CHEST: Regular rate and rhythm, +S1, +S2 LUNGS: Clear to auscultation bilaterally. No wheezes, rales, or rhonchi. ABD: Round, soft, non-tender, non-distended. +Bowel sounds throughout. EXT: No Left lower extremity edema appreciated. No apparent erythema or wounds of LLE. nails are overgrown Lt foot. Rt AKA, No warmth/erythema noted. Wound vac in place. SKIN: [place], dry, warm. NEURO: Alert and oriented x 3. No focal deficits appreciated. US neg for DVT. XR Knee Postsurgical changes and findings as described above. Differential diagnosis would include postsurgical changes as well as possible underlying postsurgical infection including subcutaneous emphysema and swelling. 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 She has been following with Dr Jacobo for wound management last seen there 01/12/19. She was admitted as per Hospitalist for Rt AKA infection and placed on IV Vanco Zosyn. Vascular Surgery is consulted for further evaluation of Rt AKA wound. 1. S/P Rt AKA with wound infection. S/P debridement 01/21/19, 01/24/19. The pt is afebrile. 01/24/19 WBC 9.4. No new labs this AM. BC x 2 neg. WC WOUND CULTURE Final Organism 1 PSEUDOMONAS AERUGINOSA QUANTITY OF GROWTH HEAVY Organism 2 STREPTOCOCCUS GROUP G QUANTITY OF GROWTH HEAVY Continue with IV Zosyn/IV Vanco with pharmacy dosing. S/P wound debridement 01/21/19. The pt is reviewed and examined as per Dr Altamirano. Wound vac in place. Plan for d/c home with wound vac and cont'd outpt f/u with Dr Jacobo. PFS to assist with home care and wound vac for d/c. 2. HLD. Lipitor. 3. HTN. HCTZ. 4. Hypothyroid. Cont supplement. 5. Anemia. 01/24/19. Hgb 8.4. Fe supplement/folic acid suppl. Monitor. 6. Hypokalemia. mag WNL. Mgmt as per primary team. S/P supplement. DVT prophylaxis. SQ Heparin currently. VS, I&O, 24H, Fishbone Vital Signs/I&O Vital Signs Date Time Temp Pulse Resp B/P (MAP) Pulse Ox O2 Delivery O2 Flow Rate FiO2 01/25/19 10:00 98.1 88 16 120/68 (85) 97 01/19/19 15:38 Room Air I&O- Last 24 Hours up to 6 AM 01/25/19 06:00 Intake Total 1420 ml Output Total 0 ml Balance 1420 ml Laboratory Data Microbiology Microbiology 01/19/19 Blood Culture - Final, Complete NO GROWTH AFTER 5 DAYS 01/19/19 Blood Culture - Final, Complete NO GROWTH AFTER 5 DAYS 01/23/19 Stool Occult Blood (APARNA) - Final, Complete 01/19/19 Anaerobic Culture - Final, Complete 01/19/19 Gram Stain - Final, Complete 01/19/19 Wound Culture - Final, Complete Pseudomonas Aeruginosa Streptococcus Group G Brii Soliman Jan 25, 2019 11:50
[2019-01-25 14:00] VITALS: BP 122/60
[2019-01-25 18:00] VITALS: BP 128/72
--- NOTE | 2019-01-25 18:55 | IPNPDOC ---
Subjective Date Seen The patient was seen on 01/25/19. Subjective Chief Complaint/HPI Subjective: 43 yo Female with Spina bifida and Paraplegia with R. AKA 2/2 R. foot gangrene presented with RLE nonhealing admitted for R. AKA infection s/p debridement 01/21 and 01/24 with wound vac placement. Interval history: Patient reported feeling fine this morning denying any complaints. Wound VAC draining, patient states that she is ready to go home whenever everything is set up. Objective Physical Examination Other physical findings Physical exam: General: No acute distress, Alert Eyes: Normal sclera, EOMI, ANTONINA HENT: Atraumatic, neck supple, moist mucous membranes Cardiovascular: Normal rate, normal rhythm. No murmurs appreciated. Pulmonary: Clear to auscultation b/l, no wheezing MSK: R. AKA w/ overlying clear wrapping clean, attached to wound vac draining. GI: Soft, nontender, nondistended Skin: Warm and dry Neuro: CN grossly intact. No focal deficits. Strengths equal b/l. Psych: oriented x 3 Assessment /Plan Assessment ASSESSMENT AND PLAN: 1. R. AKA infection - s/p debridement x2 now with wound vac in place. - On zosyn day 7. - Setting up home wound vac change with plans to discharge tomorrow. - to continue f/u with Dr. Altamirano as outpatient. 2. Hypothyroidism - c/w home medications. 3. HTN - monitor BP. - Resume home medications. 4. Anemia - c/w ferrous sulfate Disposition: D/c in AM after wound vac change Plan/VTE VTE Prophylaxis Ordered?: Yes VS, I&O, 24H, Fishbone Vital Signs/I&O Vital Signs Date Time Temp Pulse Resp B/P (MAP) Pulse Ox O2 Delivery O2 Flow Rate FiO2 01/25/19 18:00 97.1 95 18 128/72 (90) 96 01/19/19 15:38 Room Air I&O- Last 24 Hours up to 6 AM 01/25/19 06:00 Intake Total 1420 ml Output Total 0 ml Balance 1420 ml Laboratory Data Microbiology Microbiology 01/19/19 Blood Culture - Final, Complete NO GROWTH AFTER 5 DAYS 01/19/19 Blood Culture - Final, Complete NO GROWTH AFTER 5 DAYS 01/23/19 Stool Occult Blood (APARNA) - Final, Complete 01/19/19 Anaerobic Culture - Final, Complete 01/19/19 Gram Stain - Final, Complete 01/19/19 Wound Culture - Final, Complete Pseudomonas Aeruginosa Streptococcus Group G CARMELITA LAINEZ MD Jan 25, 2019 18:55
[2019-01-25 22:00] VITALS: BP 137/63
[2019-01-26] MEDS: LEVOTHYROXINE 150MCG TABLET (0.15MG) PO SCH (05:36)
[2019-01-26] MEDS: HEPARIN SOD (PORCINE) 5000 UNITS/ML VIAL SC SCH ×2 (05:36→12:43)
[2019-01-26] MEDS: PIPERACILLIN/TAZOBACTAM SOD 3.375 GM in D5W MINI-BAG PLUS 50 ML IV SCH ×2 (05:36→12:07)
[2019-01-26] MEDS: LEVOTHYROXINE 25MCG TABLET (0.025MG) PO SCH (05:36)
[2019-01-26 05:49] LABS: HEMOGLOBIN 8.7 g/dl (12.0-15.5); MEAN CORPUSCULAR HEMOGLOBIN 24.4 pg (27.0-33.0); MEAN CORPUSCULAR VOLUME 81.5 fl (80.0-96.0); PLATELET COUNT, AUTOMATED 446 10^3/uL (150-450); RED BLOOD COUNT 3.56 10^6/uL (4.00-5.40)
[2019-01-26 06:00] VITALS: BP 127/71
[2019-01-26 06:17] LABS: BLOOD UREA NITROGEN 8 MG/DL (7-18); CALCIUM LEVEL 8.6 MG/DL (8.5-10.1); CARBON DIOXIDE LEVEL 31 MEQ/L (21-32); CHLORIDE LEVEL 102 MEQ/L (98-107); CREATININE FOR GFR 0.56 MG/DL (0.55-1.30); GLOMERULAR FILTRATION RATE > 60.0 (>58); GLUCOSE, FASTING 119 MG/DL (70-100); POTASSIUM SERUM 3.2 MEQ/L (3.5-5.1); SODIUM LEVEL 139 MEQ/L (136-145)
--- NOTE | 2019-01-26 08:18 | IPNPDOC ---
Date Seen The patient was seen on 01/26/19. 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 She has been following with Dr Jacobo for wound management last seen there 01/12/19. She was admitted as per Hospitalist for Rt AKA infection and placed on IV Vanco/Zosyn. Vascular Surgery is consulted for management of Rt AKA wound. The pt is s/p debridement of Rt AKA as per Dr Altamirano 01/21/19, 01/24/19. Wound vac is currently in place. The pt denies pain currently. Denies pain, warmth, tenderness. Denies any weakness, fatigue, Headache, Chest Pain, Shortness of breath, cough, palpitations, abdominal pain, N/V/D or changes in bowel or bladder habits. PMH spina bifida paraplegia non ambulatory HTN HLD Hypothyroid PAST SURGICAL HISTORY: Spina bifida surgery. Stark's cyst removal. Knee surgery. Ankle surgery. 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 Alert and oriented x 3. Pleasant, interactive. HEENT: Normocephalic, atraumatic. Moist mucous membranes. CHEST: Regular rate and rhythm, +S1, +S2 LUNGS: Clear to auscultation bilaterally. No wheezes, rales, or rhonchi. ABD: Round, soft, non-tender, non-distended. +Bowel sounds throughout. EXT: No Left lower extremity edema appreciated. No apparent erythema or wounds of LLE. nails are overgrown Lt foot. Rt AKA, No warmth/erythema noted. Wound vac in place. SKIN: [place], dry, warm. NEURO: Alert and oriented x 3. No focal deficits appreciated. US neg for DVT. XR Knee Postsurgical changes and findings as described above. Differential diagnosis would include postsurgical changes as well as possible underlying postsurgical infection including subcutaneous emphysema and swelling. 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 She has been following with Dr Jacobo for wound management last seen there 01/12/19. She was admitted as per Hospitalist for Rt AKA infection and placed on IV Vanco Zosyn. Vascular Surgery is consulted for further evaluation of Rt AKA wound. 1. S/P Rt AKA with wound infection. S/P debridement 01/21/19, 01/24/19. The pt is afebrile. 01/24/19 WBC 9.4. No new labs this AM. BC x 2 neg. WC WOUND CULTURE Final Organism 1 PSEUDOMONAS AERUGINOSA QUANTITY OF GROWTH HEAVY Organism 2 STREPTOCOCCUS GROUP G QUANTITY OF GROWTH HEAVY Continue with IV Zosyn/IV Vanco with pharmacy dosing. S/P wound debridement 01/21/19, 01/24/19. The pt is reviewed and examined as per Dr Altamirano. Wound vac in place. Plan for d/c home today following wound vac change Cont'd outpt f/u with Dr Jacobo, wound mgmt. outpt f/u with Dr Altamirano. 2. HLD. Lipitor. 3. HTN. HCTZ. 4. Hypothyroid. Cont supplement. 5. Anemia. Hgb 8.7. Fe supplement/folic acid suppl. Monitor. 6. Hypokalemia. mag WNL. Mgmt as per primary team. S/P supplement. DVT prophylaxis. SQ Heparin currently. VS, I&O, 24H, Fishbone Vital Signs/I&O Vital Signs Date Time Temp Pulse Resp B/P (MAP) Pulse Ox O2 Delivery O2 Flow Rate FiO2 01/26/19 06:00 97.6 81 16 127/71 (89) 98 I&O- Last 24 Hours up to 6 AM 01/26/19 06:00 Intake Total 1650 ml Output Total 0 ml Balance 1650 ml Laboratory Data 24H LABS Laboratory Tests 2 01/26/19 05:33: Nucleated Red Blood Cells % (auto) 0.0, Anion Gap 6L, Glomerular Filtration Rate > 60.0, Blood Urea Nitrogen 8, Creatinine 0.56, Sodium Level 139, Potassium Level 3.2L, Chloride Level 102, Carbon Dioxide Level 31, Calcium Level 8.6 CBC/BMP Laboratory Tests 01/26/19 05:33 Red Blood Count 3.56 L, Mean Corpuscular Volume 81.5, Mean Corpuscular Hemoglobin 24.4 L, Mean Corpuscular Hemoglobin Concent 30.0 L, Red Cell Distribution Width 18.6 H, Calcium Level 8.6 Microbiology Microbiology 01/19/19 Blood Culture - Final, Complete NO GROWTH AFTER 5 DAYS 01/19/19 Blood Culture - Final, Complete NO GROWTH AFTER 5 DAYS 01/23/19 Stool Occult Blood (APARNA) - Final, Complete 01/19/19 Anaerobic Culture - Final, Complete 01/19/19 Gram Stain - Final, Complete 01/19/19 Wound Culture - Final, Complete Pseudomonas Aeruginosa Streptococcus Group G Brii Soliman Jan 26, 2019 08:18
[2019-01-26] MEDS: CYANOCOBALAMIN 500 MCG TAB PO SCH (08:36)
[2019-01-26] MEDS: FOLIC ACID 1 MG TAB PO SCH (08:36)
[2019-01-26] MEDS: DOCUSATE SODIUM 100 MG CAP PO SCH (08:36)
[2019-01-26] MEDS: ZINC SULFATE 220 MG CAP PO SCH (08:36)
[2019-01-26] MEDS: ASCORBIC ACID 500 MG TAB PO SCH (08:36)
[2019-01-26] MEDS: ATORVASTATIN 10 MG TAB PO SCH (08:36)
[2019-01-26] MEDS: hydroCHLOROthiazide 25 MG TAB PO SCH (08:36)
[2019-01-26] MEDS: FERROUS SULFATE 325MG TAB PO SCH (08:37)
[2019-01-26] MEDS: MULTIVITAMINS/MINERALS THERAP 1 TAB PO SCH (08:37)
[2019-01-26] MEDS ORDERED: POTASSIUM CHLORIDE 10 MEQ SR TABLET PO ONE (08:45)
[2019-01-26 10:00] VITALS: BP 140/71
[2019-01-26] MEDS ORDERED: FERR325T18 PO (11:02)
--- NOTE | 2019-01-26 11:15 | DS.PDOC ---
Discharge Summary General Date of Admission Jan 19, 2019 at 19:27 Date of Discharge 01/26/2019 Specialist/Consultants Involve: Dean Altamirano MD Specialist/Consultants Involve Dr. Jacobo Discharge Summary PROCEDURES PERFORMED DURING STAY: [None]. R. AKA wound Debridement 01/21/19 and 01/24/19 ADMITTING DIAGNOSES: 1. R. AKA Infection 2. Spina bifida and paraplegia 3. hypothyroidism 4. HTN DISCHARGE DIAGNOSES: 1. R. AKA Infection s/p debridement 2. Spina bifida and paraplegia 3. hypothyroidism 4. HTN 5. Anemia COMPLICATIONS/CHIEF COMPLAINT: Cellulitis Of Left Lower Extremity,Post Opt Compli. 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 She denied any fever, chills, chest pain, sob, n/v or abd pain. " HOSPITAL COURSE: Patient's a 43-year-old female admitted for post right AKA nonhealing wound status post debridement 2 with wound VAC placement. She was on a course of antibiotics van/zosyn, wound cultures grew Pseudomonas but otherwise blood cultures remained negative. Clinical status improved post I&D. Patient is now stable for discharge to follow-up with PCP as well as Dr. Altamirano for continue wound VAC management. Patient denies any complaints today including any pain or discomfort and wishes to go home. DISCHARGE MEDICATIONS: Please see below. ALLERGIES: Please see below. PHYSICAL EXAMINATION ON DISCHARGE: General: No acute distress, Alert Eyes: Normal sclera, EOMI, ANTONINA HENT: Atraumatic, neck supple, moist mucous membranes Cardiovascular: Normal rate, normal rhythm. No murmurs appreciated. Pulmonary: Clear to auscultation b/l, no wheezing MSK: R. AKA w/ overlying clear wrapping clean, attached to wound vac draining. LLE short/underdeveloped. GI: Soft, nontender, nondistended Skin: Warm and dry Neuro: CN grossly intact. No focal deficits. Strengths equal b/l. Psych: oriented x 3 LABORATORY DATA: Please see below. IMAGING: Knee XR- Findings: The patient appears to be status post amputation at the knee. Periosteal reaction involving the visualized femoral shaft is likely chronic and may be related to osteomyelitis. Cortical irregularities at the femoral condyles are suggested although no prior examination is available for comparison and findings are nonspecific. Surgical geovanna in the skin are consistent with recent amputation. Subcutaneous emphysema and soft tissue swelling is suggested. Impression: Postsurgical changes and findings as described above. Differential diagnosis would include postsurgical changes as well as possible underlying postsurgical infection including subcutaneous emphysema and swelling. ACTIVITY: [As tolerated]. DIET: Regular diet DISCHARGE PLAN: For home wound vac changes and f/u with Dr. Altamirano for continued care and observation. DISPOSITION: home ITEMS TO FOLLOWUP ON ON OUTPATIENT: 1. None DISCHARGE CONDITION: [Stable]. TIME SPENT ON DISCHARGE: Greater than 35 minutes. Vital Signs/I&Os Vital Signs Date Time Temp Pulse Resp B/P (MAP) Pulse Ox O2 Delivery O2 Flow Rate FiO2 01/26/19 10:00 96.7 89 18 140/71 (94) 97 I&O- Last 24 Hours up to 6 AM 01/26/19 06:00 Intake Total 1650 ml Output Total 0 ml Balance 1650 ml Laboratory Data Labs 24H Laboratory Tests 2 01/26/19 05:33: Nucleated Red Blood Cells % (auto) 0.0, Anion Gap 6L, Glomerular Filtration Rate > 60.0, Blood Urea Nitrogen 8, Creatinine 0.56, Sodium Level 139, Potassium Level 3.2L, Chloride Level 102, Carbon Dioxide Level 31, Calcium Level 8.6 CBC/BMP Laboratory Tests 01/26/19 05:33 Red Blood Count 3.56 L, Mean Corpuscular Volume 81.5, Mean Corpuscular Hemoglobin 24.4 L, Mean Corpuscular Hemoglobin Concent 30.0 L, Red Cell Distribution Width 18.6 H, Calcium Level 8.6 Microbiology Microbiology 01/19/19 Blood Culture - Final, Complete NO GROWTH AFTER 5 DAYS 01/19/19 Blood Culture - Final, Complete NO GROWTH AFTER 5 DAYS 01/23/19 Stool Occult Blood (APARNA) - Final, Complete 01/19/19 Anaerobic Culture - Final, Complete 01/19/19 Gram Stain - Final, Complete 01/19/19 Wound Culture - Final, Complete Pseudomonas Aeruginosa Streptococcus Group G Discharge Medications Scheduled Ascorbic Acid (Vitamin C) 500 Mg Tab, 500 MG PO DAILY, (Reported) Atorvastatin Calcium (Atorvastatin Calcium) 10 Mg Tab, 10 MG PO DAILY, (Repor kalee) Ferrous Sulfate (Ferrous Sulfate) 325 Mg Tablet, 325 MG PO TID Folic Acid (Folic Acid) 1 Mg Tab, 1 MG PO DAILY, (Reported) Hydrochlorothiazide (Hydrochlorothiazide) 25 Mg Tab, 25 MG PO DAILY, (Reported) Levothyroxine Sodium (Synthroid) 175 Mcg Tab, 175 MCG PO QAM, (Reported) Multivitamins (Thera M Plus Tablet) 1 Tab Tab, 1 TAB PO DAILY, (Reported) Zinc Sulfate (Zinc Sulfate) 220 Mg Cap, 220 MG PO DAILY, (Reported) Scheduled PRN Ciclopirox Olamine (Ciclopirox) 0.77 % Cre, 1 APLCT TOP PRN PRN for RASH, (Reported) APPLY UNDER BREASTS Allergies Coded Allergies: Sulfa (Sulfonamide Antibiotics) (Verified Allergy, Unknown, 01/19/19) betaine (Unverified Allergy, Unknown, FROM PRONTOSAN, 01/19/19) CARMELITA LAINEZ MD Jan 26, 2019 11:15
[2019-01-26] MEDS ORDERED: AMOX875T2 PO (12:41)
--- NOTE | 2019-02-22 08:47 | RO ---
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 PROCEDURE: Debridement of right lower extremity amputation stump. ATTENDING SURGEON: Dr. Sammi Altamirano RECONCILIATION ANALYST: None. INDICATION: The patient is a 43-year-old female who underwent creation of a right lower extremity amputation with a knee disarticulation and rotation. The patient will undergo debridement of her wound. Risks, benefits and alternative treatment options were discussed with the patient. ANESTHESIA: Monitored anesthesia care (MAC). ESTIMATED BLOOD LOSS: 25 mL IV FLUIDS: 200 mL. HEPARIN: None. COMPLICATIONS: None. SPECIMENS: None. IMPLANTS: None. PROCEDURE: The patient was taken to the operating room, placed supine on the operating room table and then prepped and draped in a standard surgical fashion. The right lower extremity below knee amputation wound was debrided sharply with excision of skin, subcutaneous tissue and muscle. Once all nonviable tissue was debrided, the wound was packed with 1-inch iodoform packing and dressings were applied. The patient tolerated the procedure well. All instrument, sponge and needle counts were correct at the end of the case. These were no complications. Dr. Altamirano was present for and directed the entire case. The patient was transferred to the recovery room awake, alert, extubated and in stable condition.
--- NOTE | 2019-02-22 08:53 | RO ---
DATE OF PROCEDURE: 01/24/2019 ATTENDING SURGEON: Dr. Sammi Altamirano TITLE ONE KINDER[employer] TEACHER: None. PREOPERATIVE DIAGNOSIS: Nonhealing right lower extremity amputation stump. POSTOPERATIVE DIAGNOSIS: Nonhealing right lower extremity amputation stump. PROCEDURE: Right lower extremity amputation stump excisional debridement, placement of a VAC dressing. INDICATION: The patient is a 43-year-old female who underwent right knee disarticulation with a rotation flap closure of her amputation who has now had opening of the incision with some nonhealing tissue. The patient previously underwent debridement and will now undergo repeat debridement with placement of a VAC dressing. Risks, benefits and alternative treatment options were discussed with the patient. ANESTHESIA: Monitored anesthesia care (MAC). ESTIMATED BLOOD LOSS: 20 mL. IV FLUIDS: 100 mL SPECIMENS: None. COMPLICATIONS: None. DRAINS: None. IMPLANTS: None. PROCEDURE: The patient was taken the operating room, placed supine on the operating table and then prepped and draped in a standard surgical fashion. The right lower extremity wounds were debrided sharply with excision of skin, subcutaneous tissue and muscle after which a VAC dressing was applied. The patient tolerated the procedure well. All instrument, sponge and needle counts were correct at the end of the case. There were no complications. Dr. Altamirano was present for and directed the entire case. The patient was transferred to the recovery room awake, alert, extubated and in stable condition. Edited 02/22/2019 @ 1115 [facility]
== END 2019-01-26 13:58 | disposition home health service (06) | DRG 501 ==
LOC: M ED 15:23 → M ED INP 19:27 → M MSPAV 22:20
PROVIDERS: ADMIT Internal Medicine; ATTEND Student in an Organized Health Care Education/Training Program
PROC: 0KBS0ZZ Excision of Right Lower Leg Muscle, Open Approach (ICD-10-PCS; principal; 2019-01-19)
PROC: 0KBS0ZZ Excision of Right Lower Leg Muscle, Open Approach (ICD-10-PCS; 2019-01-24)
PROC: 2W1LX6Z Compression of Right Lower Extremity using Pressure Dressing (ICD-10-PCS; 2019-01-24)
DX: T87.43 Infection of amputation stump, right lower extremity (principal); G82.20 Paraplegia, unspecified; Q05.9 Spina bifida, unspecified; T87.89 Other complications of amputation stump; E03.9 Hypothyroidism, unspecified; I10 Essential (primary) hypertension; D64.9 Anemia, unspecified; Z79.899 Other long term (current) drug therapy; Z88.2 Allergy status to sulfonamides; Z88.8 Allergy status to other drugs, medicaments and biological substances

== ENCOUNTER → 2020-03-07 | Outpatient (REF) | payer MEDICARE, MEDICAID ==
[~2020-03-07] MED LIST changes: +AMOX875T2 PO; +FERR325T18 PO; +VITA-243 PO; -VITA500T PO
== END ==
LOC: M LAB REF 16:07
PROVIDERS: ATTEND Surgery
DX: L89.154 Pressure ulcer of sacral region, stage 4 (principal)

== ENCOUNTER 2020-08-09 17:28 | Inpatient (IN) | payer MEDICARE, MEDICAID ==
[~2020-08-09] VITALS: Ht 129.5 cm; Wt 75.2 kg
[2020-08-09] MEDS ORDERED: NS 1,000 ML IV SCH (18:16)
[2020-08-09] MEDS ORDERED: CLINDAMYCIN 600 MG in IV 1 EA IV ONE (18:30)
[2020-08-09] MEDS ORDERED: ACETAMINOPHEN 325 MG TAB PO ONE (18:30)
[2020-08-09 19:55] LABS: BASO % 0.1 % (0.0-1.0); HEMATOCRIT 27.5 % (36.0-47.0); HEMOGLOBIN 7.9 g/dl (12.0-15.5); LYMPH # 1.2 10^3/uL (1.5-5.0); MEAN CORPUSCULAR HEMOGLOBIN 19.7 pg (27.0-33.0); MEAN CORPUSCULAR HGB CONC 28.7 g/dl (32.0-36.5); MEAN CORPUSCULAR VOLUME 68.4 fl (80.0-96.0); MONO # 0.8 10^3/uL (0.0-0.8); NEUTROPHILS # 12.9 10^3/uL (1.5-8.5); NEUTROPHILS % 86.2 % (36.0-66.0); PLATELET COUNT, AUTOMATED 333 10^3/uL (150-450); RED BLOOD COUNT 4.02 10^6/uL (4.00-5.40)
[2020-08-09 20:07] LABS: INR 1.03; PROTHROMBIN TIME 13.7 SECONDS (12.5-14.3)
[2020-08-09 20:26] LABS: ALBUMIN 3.1 GM/DL (3.2-5.2); ALT/SGPT 21 U/L (12-78); AMYLASE 13 U/L (25-115); BILIRUBIN,DIRECT 0.3 MG/DL (0.0-0.2); BILIRUBIN,TOTAL 0.8 MG/DL (0.2-1.0); BLOOD UREA NITROGEN 13 MG/DL (7-18); CALCIUM LEVEL 9.2 MG/DL (8.5-10.1); CARBON DIOXIDE LEVEL 27 MEQ/L (21-32); CHLORIDE LEVEL 100 MEQ/L (98-107); CREATININE FOR GFR 0.71 MG/DL (0.55-1.30); GLOMERULAR FILTRATION RATE > 60.0 (>58); GLUCOSE, FASTING 133 MG/DL (70-100); POTASSIUM SERUM 3.3 MEQ/L (3.5-5.1); SODIUM LEVEL 134 MEQ/L (136-145); TOTAL PROTEIN 7.9 GM/DL (6.4-8.2)
--- NOTE | 2020-08-09 20:41 | ECGEPIP ---
[facility] - ED Test Date: 2020-08-09 Pat Name: SKIP ESTRELLA Department: Room: - Gender: Female [employer] Installer: PERLA : [id number] Requested By: MARILIA WALKER Order Number: [id number] Reading MD: Laura Cedillo Measurements Intervals [place] Rate: 111 P: 20 ME: 163 QRS: 58 QRSD: 77 T: -5 QT: 281 QTc: 383 Interpretive Statements SINUS TACHYCARDIA NONSPECIFIC ST & T-WAVE ABNORMALITY NO PRIOR Electronically Signed on 08-09-2020 20:41:08 EDT by Laura Cedillo
[2020-08-09] MEDS ORDERED: LEVO125T4 PO (21:23)
[2020-08-09] MEDS ORDERED: FERR1TAB8 PO (21:23)
--- NOTE | 2020-08-09 21:38 | REP ---
INDICATION: SEPSIS/SHOCK COMPARISON: None. TECHNIQUE: Portable semi upright AP view FINDINGS: Examination is limited by underpenetration, poor inspiratory effort, and positioning. No focal consolidation, obvious effusion, or pneumothorax. IMPRESSION: Limited examination. No focal consolidation, effusion, or pneumothorax. <Electronically signed by Amos Kyle > 08/09/20 1221
[2020-08-09] MEDS ORDERED: PIPERACILLIN/TAZOBACTAM SOD 3.375 GM in D5W MINI-BAG PLUS 50 ML IV SCH (22:15)
[2020-08-09] MEDS ORDERED: MOM 30ML SUSPENSION UDC PO PRN (22:15)
[2020-08-09] MEDS ORDERED: GLUCOSE 4GM CHEW TABLET PO PRN (22:15)
[2020-08-09] MEDS ORDERED: GLUCAGON INJ 1MG VIAL SC PRN (22:15)
[2020-08-09] MEDS ORDERED: MAALOX 30 ML SUSP *UDC PO PRN (22:15)
[2020-08-09] MEDS ORDERED: DEXTROSE 50% 50 ML SYRINGE IV PRN (22:15)
[2020-08-09] MEDS ORDERED: ACETAMINOPHEN TAB 650MG DOSE (2X325MG) PO PRN (22:15)
[2020-08-09] MEDS ORDERED: VANCOMYCIN HCL 1,000 MG in IV FLUID PLACE HOLDER 1 EA IV SCH (22:15)
[2020-08-09] MEDS ORDERED: POTASSIUM CHLORIDE 10% LIQ 20 MEQ/15 ML UDC PO ONE (22:30)
--- NOTE | 2020-08-09 22:32 | HPEPDOC ---
[facility] Medical History & Physical Date of Admission Aug 09, 2020 Date of Service: Aug 09, 2020 Attending Physician: HAMMAD MOORE MD History and Physical CHIEF COMPLAINT: Left leg redness and warmth HISTORY OF PRESENT ILLNESS: Patient is a 44 year old female who presented to the [facility] emergency department with complaint of increased redness, swelling, and warmth of her left lower extremity. Patient has a past medical history significant for spina bifida with multiple skeletal deformations and right above the knee amputation. She follows with Dr. Jacobo [facility] outpatient for management of a coccyx wound as well as a left foot slow healing ulcer. Patient states that she noticed some increase in warmth and swelling in her left foot. She states that she has an area of ulceration that has healed on her left foot. She develops this due to her stockings that she wears causing pressure due to the deformity of her foot. She admits to fevers but denies any chills or rigors. She admits to chronic nausea. In the ER the patient was found to be vitally stable although tachycardic. She had a leukocytosis and elevated CRP. She was given a dose of IV keflex in the ED as well as IV fluids. Hospitalist service was consulted and the patient was admitted for further evaluation and management PAST MEDICAL HISTORY: 1. Iron Deficiency Anemia 2. Hypertension 3. Hyperlipidemia 4. Hypothyroidism 5. Spina Bifida 6. Paraplegic, wheelchair bound PAST SURGICAL HISTORY: 1. Multiple surgeries for spina bifida 2. Bakers Cyst Removal 3. Knee Surgery 4. Ankle Surgery 5. Right leg above the knee amputation SOCIAL HISTORY: Patient lives at home alone. She cares for herself but does have two home health aids that assist her with her ADLs. She is a non-smoker. Denies IV or illicit drug use. Denies alcohol use. She is a paraplegic and wheelchair bound. Her PCP is Sloane Mir. She follows with Dr. Jacobo [facility] FAMILY HISTORY: Patients mother and father are both . Her mother passed from complications of emphysema. Her father passed from a myocardial infarction. She has 4 brother and 3 sisters. She is unsure of her siblings medical history and if they are all currently alive. ALLERGIES: Please see below. REVIEW OF SYSTEMS: CONSTITUTIONAL: Admits to fevers. Denies chills. Denies unintentional weight- loss or weightgain. Denies night sweats. HEENT: Denies changes in vision. Denies difficulty swallowing. Denies headache CARDIOVASCULAR: Denies chest pain. Denies palpitations or feelings of the heart racing RESPIRATORY: Denies shortness of breath. Denies cough. Denies wheeze GASTROINTESTINAL: Denies abdominal pain. Denies diarrhea or constipation. Admits to chronic nausea. Denies vomiting GENITOURINARY: Denies dysuria or increased frequency. SKIN: Admits to increased redness of left leg. Admits to sacral ulcer. Admits to left foot ulcer MUSCULOSKELETAL: Admits to paraplegia 2/2 spina bifida. Denies muscle weakness from baseline NEUROLOGICAL: Denies changes in speech. Denies confusion PSYCHIATRIC: Denies depression or anxiety ENDOCRINE: Denies heat intolerance or cold intolerance HEMATOLOGIC/LYMPHATIC: Denies easy bruising or bleeding. Denies history of DVT or PE HOME MEDICATIONS: Please see below. PHYSICAL EXAMINATION: VITAL SIGNS: Temperature 99.3, pulse 104, respiratory rate 18, blood pressure 144/66, pulse oximetry 98% on room air. GENERAL APPEARANCE: Patient is awake alert and oriented. She does not appear in any acute distress. Lying comfortably in bed. Pleasant and conversive HEENT: Atraumatic, normocephalic. Eyes are nonicteric. Trachea is midline. Mucous membranes are pink and moist CARDIOVASCULAR: Normal S1, S2. Tachycardic rate. Regular rhythm. No clicks, rubs, or murmurs LUNGS: Clear vesicular breath sounds bilaterally. No wheezes, rhonchi or rales ABDOMEN: Soft, obese. nondistended. Nontender. Normoactive bowel sounds throughout SKIN: There is a sacral/coccyx pressure ulcer present. Does not appear infected EXTREMITIES: Right above the knee amputation. Right stump appears clean and non- cellulitic Bandage covering area of healed ulceration on right stump. Left lower extremity with deformation and talipes equinovarus of left foot. There is an area of ulceration on the dorsal aspect of the ankle joint. Appears healed. No purulence noted. There is erythema extending up the left leg with increased warm th and swelling. There is no tenderness NEUROLOGICAL: No focal neurological deficits PSYCHIATRIC: Mood and affect appear appropriate LABORATORY DATA: See below. IMAGING:INDICATION: SEPSIS/SHOCK COMPARISON: None. TECHNIQUE: Portable semi upright AP view FINDINGS: Examination is limited by underpenetration, poor inspiratory effort, and positioning. No focal consolidation, obvious effusion, or pneumothorax. IMPRESSION: Limited examination. No focal consolidation, effusion, or pneumothorax. MICROBIOLOGY: Please see below. ASSESSMENT: Patient is a 44 year old female who presented to the [facility] ER with complaint of left lower extremity swelling, redness and warmth that started on 08/09/2020. She presented to the ER where she was given IV Keflex. Hospitalist service was consulted and the patient was admitted for further evaluation and management . PLAN: 1. Sepsis 2/2 Left lower extremity cellulitis -Patient presented with leukocytosis, fever, tachycardia. Lactic Acid not elevated. Source is likely left lower extremity cellulitis -She received Keflex in the ER. Will continue for superficial cellulitis. -CRP elevated at 39.30. Will trend -Blood cultures pending -MRSA PCR screen pending -Procalcitonin ordered 2. Left Lower Extremity Cellulitis -Patient has left lower extremity cellulitis. Does not look concerning for osteomyelitis at this point and appears superficial. Patient does have a healed ulceration on the dorsal aspect of her left ankle. -Will continue Keflex IV -Trend CRP -HgbA1C ordered. 3. Hypokalemia -Will monitor and replete PRN 4. Iron Deficiency Anemia -Established diagnosis of iron deficiency anemia Baseline Hgb 8-9. Will continue to trend. -No signs of active bleeding. -Continue iron supplementation -Continue Vitamin C supplementation -If not already completed patient should have GI evaluation outpatient for etiology of her iron deficiency anemia 5. Sacral/Coccyx pressure ulcer -Does not appear grossly infected. Continue with pressure dressing and off- loading 6. HTN -Continue home medications 7. Hypothyroidism -Continue Synthroid 8. DVT Prophylaxis -Lovenox Vital Signs Vital Signs Date Time Temp Pulse Resp B/P (MAP) Pulse Ox O2 Delivery O2 Flow Rate FiO2 08/09/20 22:16 99.3 104 18 144/66 (92) 98 Room Air Laboratory Data Labs 24H Laboratory Tests 2 08/09/20 18:16: Immature Granulocyte % (Auto) 0.7, Neutrophils (%) (Auto) 86.2H, Lymphocytes (%) (Auto) 8.0L, Monocytes (%) (Auto) 5.0, Eosinophils (%) (Auto) 0.0, Basophils (%) (Auto) 0.1, Neutrophils # (Auto) 12.9H, Lymphocytes # (Auto) 1.2L, Monocytes # (Auto) 0.8, Eosinophils # (Auto) 0.0, Basophils # (Auto) 0.0, Nucleated Red Blood Cells % (auto) 0.0, Prothrombin Time 13.7, Prothromb Time International Ratio 1.03, Anion Gap 7L, Glomerular Filtration Rate > 60.0, Lactic Acid Level 1.2, Calcium Level 9.2, Total Bilirubin 0.8, Direct Bilirubin 0.3H, Aspartate Amino Transf (AST/SGOT) 18, Alanine Aminotransferase (ALT/SGPT) 21, Alkaline Phosphatase 104, C-Reactive Protein, Quantitative 39.30H, Total Protein 7.9, Albumin 3.1L, Albumin/Globulin Ratio 0.6L, Amylase Level 13L 08/09/20 19:50: Urine Color YELLOW, Urine Appearance HAZY, Urine pH 5.0, Urine Specific [place] 1.017, Urine Protein 2+H, Urine Glucose (UA) NEGATIVE, Urine Ketones NEGATIVE, Urine Blood 2+H, Urine Nitrite NEGATIVE, Urine Bilirubin NEGATIVE, Urine Urobilinogen 0.2, Urine Leukocyte Esterase NEGATIVE, Urine WBC (Auto) 2, Urine RBC (Auto) 14H, Urine Hyaline Casts (Auto) 0, Urine Bacteria (Auto) NEGATIVE, Urine Squamous Epithelial Cells 1, Urine Amorphous Sediment SMALLH, Urine Mucus (Auto) SMALL, Urine Sperm (Auto) CBC/BMP Laboratory Tests 08/09/20 18:16 Microbiology Microbiology 08/09/20 Respiratory Virus Panel (PCR) (APARNA) - Final, Complete 08/09/20 Blood Culture, Received Pending 08/09/20 Blood Culture, Received Pending Home Medications Scheduled Ascorbic Acid (Vitamin C) 500 Mg Tab, 500 MG PO DAILY Atorvastatin Calcium (Atorvastatin Calcium) 10 Mg Tab, 10 MG PO DAILY Ferrous Sulfate (Ferrous Sulfate) 325 Mg Tablet, 325 MG PO TID Folic Acid (Folic Acid) 1 Mg Tab, 1 MG PO DAILY Hydrochlorothiazide (Hydrochlorothiazide) 25 Mg Tab, 25 MG PO DAILY Levothyroxine Sodium (Levothyroxine Sodium) 125 Mcg Tablet, 125 MCG PO QAM Multivitamins (Thera M Plus Tablet) 1 Tab Tab, 1 TAB PO DAILY Zinc Sulfate (Zinc Sulfate) 220 Mg Cap, 220 MG PO DAILY Scheduled PRN Ciclopirox Olamine (Ciclopirox) 0.77 % Cre, 1 APLCT TOP PRN PRN for RASH APPLY UNDER BREASTS Allergies Coded Allergies: Sulfa (Sulfonamide Antibiotics) (Verified Allergy, Unknown, 01/19/19) betaine (Unverified Allergy, Unknown, FROM [facility], 01/19/19) A-FIB/CHADSVASC A-FIB History Current/History of A-Fib/PAF?: No GME ATTESTATION GME ATTESTATION My faculty preceptor for this patient encounter was physically present during the encounter and was fully available. All aspects of the patient interview, examination, medical decision making process, and medical care plan development were reviewed and approved by the faculty preceptor. The faculty preceptor is aware and concurs with the plan as stated in the body of this note and will attest to such by his/her cosignature. ATTENDING NOTE TIME OF SERVICE [id number] is a 44 yr old w a hx of Spina bifida, HTN, R AKA, ALEXANDREA, obesity chronic left foot wound who presented w c/o gradually worsening redness and swelling of her LLE & will be admitted for management of sepsis 2/2 cellulitis. 1 Sepsis 2/2 cellulitis - c/w IV clindamycin, elevate leg, f/u US to r/o DVT, 2 Onychomycosis - day time team may consider starting antifungal vs consulting Podiatry 3 RLE wound will ask day time team to consult 4 Acute on chronic ALEXANDREA - f/u iron panel & stool occult 5 Hypokalemia replete K & f/u Mg 6 Class 3 obesity f/u A1C Rest per H&P TESSIE NESS DO Aug 09, 2020 22:32 HAMMAD MOORE MD Aug 10, 2020 00:15
[2020-08-09 22:41] LABS: FERRITIN 225 NG/ML (8-252); IRON (FE) 8 UG/DL (50-170); PERCENT SATURATION 2.2 % (13.2-45.0); TOTAL IRON BINDING CAPACITY 357 UG/DL (250-450)
[2020-08-09 23:35] VITALS: BP 112/73
[2020-08-10] MEDS: HumaLOG INSULIN (NovoLOG) PER UNIT SC SCH ×5 (00:19→21:00)
[2020-08-10] MEDS: FERROUS SULFATE 325MG TAB PO SCH ×4 (00:33→21:54)
[2020-08-10] MEDS: NS 1,000 ML IV SCH ×3 (00:33→11:27)
[2020-08-10 06:00] VITALS: BP 109/71
[2020-08-10] MEDS ORDERED: CLINDAMYCIN 600 MG in IV 1 EA IV SCH (06:00)
[2020-08-10] MEDS: LEVOTHYROXINE 125MCG TABLET (0.125MG) PO SCH (06:20)
[2020-08-10 06:42] LABS: HEMOGLOBIN 7.2 g/dl (12.0-15.5); MEAN CORPUSCULAR HEMOGLOBIN 20.2 pg (27.0-33.0); MEAN CORPUSCULAR HGB CONC 28.8 g/dl (32.0-36.5); MEAN CORPUSCULAR VOLUME 70.2 fl (80.0-96.0); PLATELET COUNT, AUTOMATED 265 10^3/uL (150-450); RED BLOOD COUNT 3.56 10^6/uL (4.00-5.40); WHITE BLOOD COUNT 12.5 10^3/uL (4.0-10.0)
[2020-08-10 07:01] LABS: HEMOGLOBIN A1c 6.3 %
[2020-08-10] MEDS: CLINDAMYCIN 600 MG in IV 1 EA IV SCH ×3 (07:07→21:54)
--- NOTE | 2020-08-10 07:14 | REPVR ---
PROCEDURE INFORMATION: Exam: US Duplex Left Lower Extremity Veins, Limited Exam date and time: 08/10/2020 6:47 AM Age: 44 years old Clinical indication: Swelling (edema) of limb; Lower extremity, left TECHNIQUE: Imaging protocol: Real-time Duplex ultrasound of the Left Lower Extremity with 2-D thayer scale, color Doppler flow and spectral waveform analysis with image documentation. Limited exam focused on the left lower extremity veins. COMPARISON: US Duplex, Ext,LOWER veins,unilat 01/19/2019 6:22 PM FINDINGS: Left deep veins: There is hypoechoic clot distending the left proximal, mid and distal femoral vein with no flow seen. Graded compression is very limited and difficult due to patient's body habitus and positioning. The left popliteal vein could not be visualized due to patient's body habitus and positioning with inability to move the left leg. The left common femoral vein appears to be patent. Left superficial veins: Unremarkable. Saphenofemoral junction is patent without thrombus. Soft tissues: Unremarkable. IMPRESSION: Occlusive DVT throughout the left femoral vein. Popliteal vein was not visualized due to patient's body habitus and positioning. Electronically signed by: Teja Bhatt On 08/10/2020 07:14:06 AM
[2020-08-10 07:18] LABS: BLOOD UREA NITROGEN 15 MG/DL (7-18); CALCIUM LEVEL 8.5 MG/DL (8.5-10.1); CARBON DIOXIDE LEVEL 26 MEQ/L (21-32); CHLORIDE LEVEL 106 MEQ/L (98-107); CREATININE FOR GFR 0.65 MG/DL (0.55-1.30); GLOMERULAR FILTRATION RATE > 60.0 (>58); GLUCOSE, FASTING 114 MG/DL (70-100); POTASSIUM SERUM 3.6 MEQ/L (3.5-5.1); SODIUM LEVEL 137 MEQ/L (136-145)
[2020-08-10] MEDS ORDERED: HumaLOG INSULIN (NovoLOG) PER UNIT SC SCH ×2 (07:30→21:00)
--- NOTE | 2020-08-10 08:02 | IPNPDOC ---
Text Note Date of Service The patient was seen on 08/10/20. NOTE Subjective: Patient was seen and examined this morning at bedside. Tells me she's feeling well and her left lower extremity swelling and leg pain has already improved and the redness has come down. Nurse tells me there is no overnight events. Patient tells me she's feeling well overall with a good sense of humor. Objective: Constitutional: Awake and alert, in no apparent distress ENT: Sclera are clear. Mucosa is moist. Respiratory: Lungs CTA bilaterally. No respiratory distress. No use of accessory muscles. Cardiovascular: RRR S1 and S2 are normal, no murmur Gastrointestinal: Abdomen is soft, non distended, non tender, BS present. Musculoskeletal: Right above-knee amputation with stump covered in bandage that's drying clean. Left lower extremity with deformed left foot. Cellulitis over foot up to knee appears to have improved based on prior margin markings on skin by about 2-3 inches lower. There is a small ulcer on the dorsal aspect of the ankle that appears to be healing with no discharge. Homans is negative with no tenderness over the area of the cellulitis. Neurologic: No focal neurological deficit. Mental Status: A&O x3, normal affect Skin: sacral/coccyx pressure ulcer present Assessment/plan: 44-year-old female past medical history of HTN, HLD, hypothyroidism, spina bifida, paraplegic and wheelchair bound. Presents for left lower extremity redness and swelling found to have none purulent LLE cellulitis. Left lower extremity duplex also reveals patient has a DVT. Patient admitted for further evaluation and management. # LLE cellulitis resulting in sepsis: BCx pending. IVFs. IV keflex. Improving margins from yesterday. # Left lower extremity DVT: Seen on duplex ultrasound. Eliquis 10 mg twice a day for 7 days followed by 5 mg twice a day. Start date 08/10/2020. # HTN: Continue home meds monitor and titrate # Hypothyroidism: Continue home levothyroxine dose # Paraplegia, without rebound: PT # Iron deficiency anemia: Hgb at baseline. Continue iron and vitamin C. Outpatient follow-up with primary care doctor # Sacral/Coccyx pressure ulcer: Continue with pressure dressing and off-loading. # Hypokalemia: Replace. Monitor # DVT prophylaxis: Johann Carroll Yousef Hospitalist Lj ARANGO I+O Lj ARANGO I+O Laboratory Tests 08/09/20 18:16 08/10/20 06:18 Vital Signs Date Time Temp Pulse Resp B/P (MAP) Pulse Ox O2 Delivery O2 Flow Rate FiO2 08/10/20 06:00 97.8 95 18 109/71 (84) 99 Room Air I&O- Last 24 Hours up to 6 AM 08/10/20 06:00 Intake Total 470 ml Balance 470 ml RENEE ACBRERA MD Aug 10, 2020 08:02
[2020-08-10] MEDS: ATORVASTATIN 10 MG TAB PO SCH (08:20)
[2020-08-10] MEDS: ASCORBIC ACID 500 MG TAB PO SCH (08:20)
[2020-08-10] MEDS: ZINC SULFATE 220 MG CAP PO SCH (08:20)
[2020-08-10] MEDS: MULTIVITAMINS/MINERALS THERAP 1 TAB PO SCH (08:20)
[2020-08-10] MEDS: hydroCHLOROthiazide 25 MG TAB PO SCH (08:20)
[2020-08-10] MEDS: FOLIC ACID 1 MG TAB PO SCH (08:20)
[2020-08-10] MEDS ORDERED: ENOXAPARIN 40MG/0.4ML SYRINGE (J1650 PER 10MG) SC SCH (09:00)
[2020-08-10] MEDS ORDERED: ENOXAPARIN 80MG/0.8ML SYRINGE (J1650 PER 10MG) SC SCH (09:00)
[2020-08-10 18:00] VITALS: BP 137/76
[2020-08-10] MEDS: APIXABAN 5 MG TAB (ELIQUIS) PO SCH (21:54)
[2020-08-10 22:00] VITALS: BP 114/70
[2020-08-11] VITALS (7 sets, daily range): BP systolic 97–120; BP diastolic 64–76
[2020-08-11] MEDS: CLINDAMYCIN 600 MG in IV 1 EA IV SCH ×3 (05:27→22:08)
[2020-08-11] MEDS: LEVOTHYROXINE 125MCG TABLET (0.125MG) PO SCH (05:30)
[2020-08-11 06:18] LABS: HEMATOCRIT 24.9 % (36.0-47.0); HEMOGLOBIN 7.1 g/dl (12.0-15.5); MEAN CORPUSCULAR HEMOGLOBIN 20.3 pg (27.0-33.0); MEAN CORPUSCULAR HGB CONC 28.5 g/dl (32.0-36.5); MEAN CORPUSCULAR VOLUME 71.3 fl (80.0-96.0); PLATELET COUNT, AUTOMATED 274 10^3/uL (150-450); RED BLOOD COUNT 3.49 10^6/uL (4.00-5.40); WHITE BLOOD COUNT 9.6 10^3/uL (4.0-10.0)
[2020-08-11 06:41] LABS: BLOOD UREA NITROGEN 10 MG/DL (7-18); CALCIUM LEVEL 8.5 MG/DL (8.5-10.1); CARBON DIOXIDE LEVEL 28 MEQ/L (21-32); CHLORIDE LEVEL 106 MEQ/L (98-107); CREATININE FOR GFR 0.56 MG/DL (0.55-1.30); GLOMERULAR FILTRATION RATE > 60.0 (>58); GLUCOSE, FASTING 116 MG/DL (70-100); POTASSIUM SERUM 3.4 MEQ/L (3.5-5.1); SODIUM LEVEL 141 MEQ/L (136-145)
[2020-08-11] MEDS: FOLIC ACID 1 MG TAB PO SCH (08:23)
[2020-08-11] MEDS: ATORVASTATIN 10 MG TAB PO SCH (08:23)
[2020-08-11] MEDS: HumaLOG INSULIN (NovoLOG) PER UNIT SC SCH ×4 (08:23→21:00)
[2020-08-11] MEDS: ZINC SULFATE 220 MG CAP PO SCH (08:23)
[2020-08-11] MEDS: MULTIVITAMINS/MINERALS THERAP 1 TAB PO SCH (08:24)
[2020-08-11] MEDS: ASCORBIC ACID 500 MG TAB PO SCH (08:24)
[2020-08-11] MEDS: APIXABAN 5 MG TAB (ELIQUIS) PO SCH ×2 (08:24→22:08)
[2020-08-11] MEDS: hydroCHLOROthiazide 25 MG TAB PO SCH (08:24)
[2020-08-11] MEDS: FERROUS SULFATE 325MG TAB PO SCH ×2 (08:24→22:08)
[2020-08-11] MEDS ORDERED: MORPHINE 4 MG/ML 1ML VIAL/SYRINGE (J2270) IV ONE (09:15)
[2020-08-11] MEDS ORDERED: BISACODYL 10 MG SUPP PR PRN (09:45)
[2020-08-11] MEDS ORDERED: BISACODYL 10 MG SUPP PR ONE (09:45)
[2020-08-11] MEDS: SENOKOT S TAB PO SCH (10:15)
--- NOTE | 2020-08-11 11:46 | IPNPDOC ---
Text Note Date of Service The patient was seen on 08/11/20. NOTE Subjective: Patient was seen and examined this morning at bedside. Tells me she's feeling well and her left lower extremity swelling and leg pain has continued to improved and the redness has come down. Nurse tells me patient spiked 1 fever overnight. Patient tells me she's feeling well overall. She denies any bleeding and is currently not on her period. She does tell me that her periods can be heavy when they do come on. I informed the patient that her hemoglobin Dropped and That She Will Need 1 Unit of Blood Consent Was Signed is in chart. Patient tells me she had a colonoscopy done 1 year ago and a EGD that was normal. Objective: Constitutional: Awake and alert, in no apparent distress ENT: Sclera are clear. Mucosa is moist. Respiratory: Lungs CTA bilaterally. No respiratory distress. No use of accessory muscles. Cardiovascular: RRR S1 and S2 are normal, no murmur Gastrointestinal: Abdomen is soft, non distended, non tender, BS present. Musculoskeletal: Right above-knee amputation with stump covered in bandage that's drying clean. Left lower extremity with deformed left foot. Cellulitis over foot up to knee appears to have improved based on prior margin markings. There is a small ulcer on the dorsal aspect of the ankle that appears to be healing with no discharge. Homans is negative with no tenderness over the area of the cellulitis. Neurologic: No focal neurological deficit. Mental Status: A&O x3, normal affect Skin: sacral/coccyx pressure ulcer present Assessment/plan: 44-year-old female past medical history of HTN, HLD, hypothyroidism, spina bifida, paraplegic and wheelchair bound. Presents for left lower extremity redness and swelling found to have none purulent LLE cellulitis. Left lower extremity duplex also reveals patient has a DVT. Patient admitted for further evaluation and management. # LLE cellulitis resulting in sepsis: BCx pending. IVFs. IV keflex. Improving margins from yesterday.Tmax overnight 101.2 # Left lower extremity DVT: Seen on duplex ultrasound. Eliquis 10 mg twice a day for 7 days followed by 5 mg twice a day. Start date 08/10/2020. # Iron deficiency anemia: Hgb dropped to 7.1. baseline~8. Transfused 1 unit. Transfuse PRN hgb<7. No active bleeding. FOBT pending. Continue iron and vitamin C. # HTN: Continue home meds monitor and titrate # Hypothyroidism: Continue home levothyroxine dose # Paraplegia, without rebound: PT # Sacral/Coccyx pressure ulcer: Continue with pressure dressing and off-loading. # Hypokalemia: Replace. Monitor # DVT prophylaxis: Johann Cabrera Hospitalist VS,Lj, I+O VSLj, I+O Laboratory Tests 08/11/20 05:46 Vital Signs Date Time Temp Pulse Resp B/P (MAP) Pulse Ox O2 Delivery O2 Flow Rate FiO2 08/11/20 06:00 97/68 (78) 08/11/20 06:00 97.6 98 18 97 Room Air I&O- Last 24 Hours up to 6 AM 08/11/20 06:00 Intake Total 1160 ml Output Total 0 ml Balance 1160 ml RENEE CABRERA MD Aug 11, 2020 11:45
[2020-08-11] MEDS ORDERED: MOM 30ML SUSPENSION UDC PO PRN (14:00)
[2020-08-11] MEDS ORDERED: MOM 30ML SUSPENSION UDC PO ONE (14:30)
[2020-08-11] MEDS ORDERED: BISACODYL 5 MG TAB PO ONE (14:30)
[2020-08-11] MEDS ORDERED: FLEET ENEMA PR ONE (16:30)
--- NOTE | 2020-08-11 18:24 | REP ---
INDICATION: no bowel movement COMPARISON: None. TECHNIQUE: Supine view of the chest and abdomen/pelvis along with cross-table view of the abdomen. FINDINGS: Frontal view of the chest is grossly unremarkable and without focal consolidation or effusion. Cross-table view of the abdomen demonstrates no obvious free air. Supine views of the abdomen and pelvis demonstrate nonspecific bowel gas pattern. 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 IMPRESSION: Bowel gas pattern is nonspecific. <Electronically signed by Amos Kyle > 08/11/20 [id number]
[2020-08-12] MEDS ORDERED: POTASSIUM CHLORIDE 10% LIQ 20 MEQ/15 ML UDC PO ONE (00:45)
[2020-08-12 00:52] VITALS: BP 117/80
[2020-08-12] MEDS: NS 1,000 ML IV SCH ×2 (01:10→12:20)
[2020-08-12] MEDS: CLINDAMYCIN 600 MG in IV 1 EA IV SCH ×3 (05:32→21:41)
[2020-08-12] MEDS: LEVOTHYROXINE 125MCG TABLET (0.125MG) PO SCH (05:32)
[2020-08-12 06:00] VITALS: BP 130/78
[2020-08-12 06:22] LABS: HEMATOCRIT 27.4 % (36.0-47.0); HEMOGLOBIN 8.1 g/dl (12.0-15.5); MEAN CORPUSCULAR HGB CONC 29.6 g/dl (32.0-36.5); MEAN CORPUSCULAR VOLUME 71.2 fl (80.0-96.0); PLATELET COUNT, AUTOMATED 314 10^3/uL (150-450); RED BLOOD COUNT 3.85 10^6/uL (4.00-5.40); WHITE BLOOD COUNT 12.6 10^3/uL (4.0-10.0)
[2020-08-12 06:42] LABS: BLOOD UREA NITROGEN 9 MG/DL (7-18); CALCIUM LEVEL 8.9 MG/DL (8.5-10.1); CARBON DIOXIDE LEVEL 29 MEQ/L (21-32); CHLORIDE LEVEL 104 MEQ/L (98-107); CREATININE FOR GFR 0.53 MG/DL (0.55-1.30); GLOMERULAR FILTRATION RATE > 60.0 (>58); GLUCOSE, FASTING 140 MG/DL (70-100); MAGNESIUM LEVEL 2.2 MG/DL (1.8-2.4); POTASSIUM SERUM 3.6 MEQ/L (3.5-5.1); SODIUM LEVEL 137 MEQ/L (136-145)
[2020-08-12] MEDS: HumaLOG INSULIN (NovoLOG) PER UNIT SC SCH ×4 (07:45→20:32)
[2020-08-12] MEDS: SENOKOT S TAB PO SCH (09:11)
[2020-08-12] MEDS: FERROUS SULFATE 325MG TAB PO SCH ×2 (09:11→20:32)
[2020-08-12] MEDS: hydroCHLOROthiazide 25 MG TAB PO SCH (09:11)
[2020-08-12] MEDS: MULTIVITAMINS/MINERALS THERAP 1 TAB PO SCH (09:11)
[2020-08-12] MEDS: ATORVASTATIN 10 MG TAB PO SCH (09:11)
[2020-08-12] MEDS: ZINC SULFATE 220 MG CAP PO SCH (09:11)
[2020-08-12] MEDS: APIXABAN 5 MG TAB (ELIQUIS) PO SCH ×2 (09:11→20:32)
[2020-08-12] MEDS: FOLIC ACID 1 MG TAB PO SCH (09:11)
[2020-08-12] MEDS: ASCORBIC ACID 500 MG TAB PO SCH (09:11)
--- NOTE | 2020-08-12 12:36 | IPNPDOC ---
Text Note Date of Service The patient was seen on 08/12/20. NOTE Subjective: Patient was seen and examined this morning at bedside. Tells me she's feeling well and her left lower extremity swelling and leg pain has continued to improve and the redness has come down in for. No more fevers for over 24 hours. She has been having difficulty having bowel movements and the medications and enema yesterday did not work. Objective: Constitutional: Awake and alert, in no apparent distress ENT: Sclera are clear. Mucosa is moist. Respiratory: Lungs CTA bilaterally. No respiratory distress. No use of accessory muscles. Cardiovascular: RRR S1 and S2 are normal, no murmur Gastrointestinal: Abdomen is soft, non distended, non tender, BS present. Musculoskeletal: Right above-knee amputation with stump covered in bandage that's drying clean. Left lower extremity with deformed left foot. Cellulitis over foot up to knee appears to have improved based on prior margin markings. There is a small ulcer on the dorsal aspect of the ankle that appears to be healing with no discharge. Homans is negative with no tenderness over the area of the cellulitis. Neurologic: No focal neurological deficit. Mental Status: A&O x3, normal affect Skin: sacral/coccyx pressure ulcer present Assessment/plan: 44-year-old female past medical history of HTN, HLD, hypothyroidism, spina bifida, paraplegic and wheelchair bound. Presents for left lower extremity redness and swelling found to have none purulent LLE cellulitis. Left lower extremity duplex also reveals patient has a DVT. Patient admitted for further evaluation and management. # LLE cellulitis resulting in sepsis: BCx negative IVFs. IV clindamycin. Probably will need ~ 10 days total course. Margins continue to improving. No fever for 24 hours. # Left lower extremity DVT: Seen on duplex ultrasound. Eliquis 10 mg twice a day for 7 days followed by 5 mg twice a day. Start date 08/10/2020. # Iron deficiency anemia: 8.1 today at baseline s/p 1 uprbc. Transfuse PRN hgb<7. No active bleeding. FOBT still not sent waiting for patient to have bowel movement. Continue iron and vitamin C. # Constipation: Fleet enema did not work yesterday. on dulcolax, senna/docusate, milk of mag. Try scheduled lactulose today titrate down for 1-2 bowel movements. abdo xray reviewed. # HTN: Continue home meds monitor and titrate # Hypothyroidism: Continue home levothyroxine dose # Paraplegia, without rebound: PT # Sacral/Coccyx pressure ulcer: Continue with pressure dressing and off-loading. # Hypokalemia: Replace. Monitor # DVT prophylaxis: Johann Cabrera Hospitalist VSLj, I+O VSLj, I+O Laboratory Tests 08/12/20 05:58 Vital Signs Date Time Temp Pulse Resp B/P (MAP) Pulse Ox O2 Delivery O2 Flow Rate FiO2 08/12/20 06:00 98.6 64 18 130/78 (95) 96 Room Air I&O- Last 24 Hours up to 6 AM 08/12/20 06:00 Intake Total 2550 ml Output Total 0 ml Balance 2550 ml RENEE CABRERA MD Aug 12, 2020 12:36
[2020-08-12 14:00] VITALS: BP 126/65
[2020-08-12] MEDS: LACTULOSE 20 GM/30 ML SYRUP UD PO SCH ×2 (14:43→17:35)
[2020-08-12 22:00] VITALS: BP 128/75
[2020-08-13] MEDS: LACTULOSE 20 GM/30 ML SYRUP UD PO SCH ×3 (00:27→13:29)
[2020-08-13] MEDS: NS 1,000 ML IV SCH (03:00)
[2020-08-13] MEDS: LEVOTHYROXINE 125MCG TABLET (0.125MG) PO SCH (05:59)
[2020-08-13 06:00] VITALS: BP 117/72
[2020-08-13] MEDS: CLINDAMYCIN 600 MG in IV 1 EA IV SCH ×2 (06:01→13:29)
[2020-08-13 06:20] LABS: HEMATOCRIT 27.8 % (36.0-47.0); HEMOGLOBIN 7.9 g/dl (12.0-15.5); MEAN CORPUSCULAR HEMOGLOBIN 20.5 pg (27.0-33.0); MEAN CORPUSCULAR HGB CONC 28.4 g/dl (32.0-36.5); PLATELET COUNT, AUTOMATED 372 10^3/uL (150-450); RED BLOOD COUNT 3.86 10^6/uL (4.00-5.40); WHITE BLOOD COUNT 12.7 10^3/uL (4.0-10.0)
[2020-08-13 06:41] LABS: BLOOD UREA NITROGEN 7 MG/DL (7-18); CALCIUM LEVEL 8.7 MG/DL (8.5-10.1); CARBON DIOXIDE LEVEL 30 MEQ/L (21-32); CHLORIDE LEVEL 103 MEQ/L (98-107); CREATININE FOR GFR 0.42 MG/DL (0.55-1.30); GLOMERULAR FILTRATION RATE > 60.0 (>58); GLUCOSE, FASTING 124 MG/DL (70-100); POTASSIUM SERUM 3.9 MEQ/L (3.5-5.1); SODIUM LEVEL 139 MEQ/L (136-145)
--- NOTE | 2020-08-13 09:02 | REP ---
INDICATION: wbc. COMPARISON: 08/11/2020. TECHNIQUE: SINGLE PORTABLE AP VIEW OF THE CHEST WAS PERFORMED. FINDINGS: There is poor ventilation. There is mild dilation of the right hemidiaphragm. There is no acute infiltrate. Cardiac silhouette is mildly prominent. Mediastinal silhouette is unchanged. IMPRESSION: NO ACUTE PULMONARY DISEASE. <Electronically signed by Elmer Godinez > 08/13/20 [id number]
[2020-08-13] MEDS: FERROUS SULFATE 325MG TAB PO SCH (09:33)
[2020-08-13] MEDS: ASCORBIC ACID 500 MG TAB PO SCH (09:33)
[2020-08-13] MEDS: APIXABAN 5 MG TAB (ELIQUIS) PO SCH (09:33)
[2020-08-13] MEDS: hydroCHLOROthiazide 25 MG TAB PO SCH (09:33)
[2020-08-13] MEDS: FOLIC ACID 1 MG TAB PO SCH (09:33)
[2020-08-13] MEDS: ZINC SULFATE 220 MG CAP PO SCH (09:33)
[2020-08-13] MEDS: SENOKOT S TAB PO SCH (09:33)
[2020-08-13] MEDS: HumaLOG INSULIN (NovoLOG) PER UNIT SC SCH ×2 (09:33→13:30)
[2020-08-13] MEDS: ATORVASTATIN 10 MG TAB PO SCH (09:33)
[2020-08-13] MEDS: MULTIVITAMINS/MINERALS THERAP 1 TAB PO SCH (09:33)
[2020-08-13] MEDS ORDERED: MAGNESIUM CITRATE 300 ML BTL PO ONE (11:00)
[2020-08-13 14:00] VITALS: BP 121/74
--- NOTE | 2020-08-13 15:11 | CR ---
DATE: 08/13/2020 CONSULT REQUESTED BY: Dr. Duncan REASON FOR CONSULTATION: Treatment for cellulitis, left lower extremity, wounds involving the left lower extremity and coccyx. This is a telemedicine evaluation which the patient has consented to Patient is a 44-year-old spina bifida patient with chronic lymphedema involving her left lower extremity secondary to immobility. The patient has had a previous right above-knee amputation for a spontaneous fracture involving her right lower extremity, which was not amenable to orthopedic repair. Patient later on developed a spontaneous fracture to her left femur, which was rodded successfully. Etiology for her fractures, which occurred without significant trauma, is based on the fact that the patient has been immobile since , and the feedback mechanism from lower extremity muscular activity to the bone of her legs has been eliminated, thus producing bone fragility. We have treated the patient for quite some time, and until recently had shown significant improvement as at one time she had six separate wounds involving her left lower extremity. When last seen, the only wound noted was her coccyx, which was showing improvement. When the patient is seen today, she has extensive edema involving both her left lower extremity and her right above-knee amputation site. The etiology for her problem is gravitational dependent edema, which produced blistering with eventual full-thickness wound, which allowed bacteria to enter into her subcutaneous tissue. Wounds involving significant edema of the lower extremity and lymphedema often spread very rapidly through the lymphatics and require hospitalization, elevation, compression, and IV antibiotics. At present, the patient is afebrile and is scheduled for discharge. TREATMENT RECOMMENDATIONS: Patient will need a heel-float boot for her left heel for offloading purposes, Tubigrip or Medigrip support stocking for her left leg. She does have a stump human resources mgr at home, and if she is being discharged this can be applied at home. All wounds are to be covered with foam dressings. On the left lower extremity, medial aspect, inframalleolar, there is a 2.0 cm x 1.4 cm wound with a depth of less than 0.1 cm. On the left heel there is an early deep tissue injury present, which appears limited in distribution. Treatment for both is offloading with heel-float boot and foam dressings. On her coccyx, the wound measures 1.5 cm x 2.0 cm with a depth of 1.0 cm. This is being treated with Drawtex changed on a daily basis, covered with a foam dressing, and should be continued. Patient has a new area of maceration involving the left upper thigh, posterior aspect, just below the gluteal fold. This appears to be an incontinent dermatitis and should be treated with a foam dressing. The whole buttocks and perineum should be treated with Cavilon advanced tissue protectant, which is applied with the applicator. Patient has refused Crane catheter in the past. She has a prolapsed uterus, which also complicates this situation. She has been on clindamycin with good results. Patient is scheduled to be seen in our wound clinic in 48 hours, and I will check to ensure that her appointment is still present. COREY
--- NOTE | 2020-08-13 17:10 | DS.PDOC ---
Discharge Summary General Date of Admission Aug 09, 2020 at 22:11 Date of Discharge 08/13/20 Discharge Summary PROCEDURES PERFORMED DURING STAY: [None]. ADMITTING DIAGNOSES: Sepsis 2/2 LLE cellulitis Hypokalemia ALEXANDREA Sacral/coccyx pressure ulcer HTN Hypothyroidism DISCHARGE DIAGNOSES: Sepsis 2/2 LLE cellulitis Hypokalemia ALEXANDREA Sacral/coccyx pressure ulcer HTN Hypothyroidism LLE DVT COMPLICATIONS/CHIEF COMPLAINT: Cellulitis Of L Lower Extremity. HISTORY OF PRESENT ILLNESS: . HOSPITAL COURSE: 44-year-old female past medical history of HTN, HLD, hypothyroidism, spina bifida, paraplegic and wheelchair bound. Presents for left lower extremity redness and swelling found to have none purulent LLE cellulitis. Left lower extremity duplex also reveals patient has a DVT. Patient admitted for further evaluation and management. # LLE cellulitis resulting in sepsis: BCx negative IVFs. IV clindamycin. 10 days total course. Margins continue to improving. No fever for [address] Hutchins consulted, wound care recs appreciated, and will see patient in clinic in 48 hours. # Left lower extremity DVT: Seen on duplex ultrasound. Eliquis 10 mg twice a day for 7 days followed by 5 mg twice a day. Start date 08/10/2020. # Iron deficiency anemia: 8.1 today at baseline s/p 1 uprbc. Transfuse PRN hgb <7. No active bleeding. FOBT outpatient. Needs colonoscopy. Continue iron and vitamin C. # Constipation: patient had large BM prior to DC after disimpaction. Reduced PO iron to once daily. Bowel regimen # HTN: Continue home meds monitor and titrate # Hypothyroidism: Continue home levothyroxine dose # Paraplegia, without rebound: PT # Sacral/Coccyx pressure ulcer: Continue with pressure dressing and off-loading. # Hypokalemia: Replace. Monitor # DVT prophylaxis: Eliquis DISCHARGE MEDICATIONS: Please see below. ALLERGIES: Please see below. PHYSICAL EXAMINATION ON DISCHARGE: VITAL SIGNS: please see below General: NAD, comfortable HEENT: PERRLA, EOMI, sclerae clear Neck: supple, normal ROM, no JVD Respiratory: lungs CTAB, no wheeze, no rales, no crackles CVS: RRR, normal S1, S2, no murmurs Abdo: soft, no masses, no hepatosplenomegaly, BS+, no rebound tenderness Extremities: no edema, pulses 2+ MSK: Right above-knee amputation with stump covered with foam dressing, clean. Left lower extremity with contractures left foot. Cellulitis over foot up to knee appears to have improved based on prior margin markings. There is a small ulcer on the dorsal aspect of the ankle that appears to be healing with no discharge. Neuro: no focal neuro deficits, moving all 4 extremities, CN2-12 intact. Strength 5/5 in all 4 extremities. No nystagmus. Skin: sacral/coccyx pressure ulcer, maceration on left upper thigh posterior aspect, below gluteal fold Psych: calm, cooperative, AAO x 3 LABORATORY DATA: Please see below. IMAGING: venous duplex LLE (08/13) - Occlusive DVT throughout the left femoral vein. PROGNOSIS: good ACTIVITY: As tolerated DIET: CC DISCHARGE PLAN: home with home health, PCP and specialist follow up. DISPOSITION: home with services DISCHARGE INSTRUCTIONS: Wound Care: - HEEL-FLOAT BOOT FOR L HEEL - MEDIGRIP SUPPORT STOCKING FOR L LEG - APPLY STUMP STOCK HANGER AT HOME - COVER ALL WOUNDS WITH FOAM DRESSING - DRAWTEX TO WOUND ON COCCYX, CHANGED DAILY, COVERED WITH FOAM DRESSING - FOAM DRESSING TO MACERATION ON L UPPER THIGH BELOW GLUTEAL FOLD - COVER BUTTOCKS AND PERINEUM WITH CAVILON ADVANCED TISSUE PROTECTANT PLEASE FOLLOW UP WITH YOUR PRIMARY CARE DOCTOR WITHIN 2-3 DAYS PLEASE FOLLOW UP WITH DR. HUTCHINS WITHIN 48 HOURS PLEASE TAKE YOUR MEDICATIONS PRESCRIBED IF YOU DEVELOP CHEST PAIN, SHORTNESS OF BREATH, FEVERS, CHILLS, BLEEDING OR OTHERWISE WORSENING FO YOUR SYMPTOMS, PLASE CALL 911 OR RETURN TO THE EMERGENCY DEPARTMENT. ITEMS TO FOLLOWUP ON ON OUTPATIENT: 1. FOBT and colonoscopy. 2. wound care . 3. bowel regimen for constipation. DISCHARGE CONDITION: Stable TIME SPENT ON DISCHARGE: Greater than 30 minutes. Vital Signs/I&Os Vital Signs Date Time Temp Pulse Resp B/P (MAP) Pulse Ox O2 Delivery O2 Flow Rate FiO2 08/13/20 14:00 98.2 91 17 121/74 (90) 95 Room Air I&O- Last 24 Hours up to 6 AM 08/13/20 06:00 Intake Total 2655 ml Output Total 0 ml Balance 2655 ml Laboratory Data Labs 24H Laboratory Tests 2 08/12/20 19:24: Bedside Glucose (Misc Panel) 132H 08/13/20 06:00: Nucleated Red Blood Cells % (auto) 0.2H, Anion Gap 6L, Glomerular Filtration Rate > 60.0, Calcium Level 8.7 08/13/20 11:53: Bedside Glucose (Misc Panel) 169H CBC/BMP Laboratory Tests 08/13/20 06:00 FSBS Laboratory Tests Test 08/12/20 19:24 08/13/20 11:53 Range/Units Bedside Glucose (Misc Panel) 132 169 70-105 MG/DL Microbiology Microbiology 08/09/20 Respiratory Virus Panel (PCR) (APARNA) - Final, Complete 08/09/20 Blood Culture - Preliminary, Resulted No Growth after 72 hours. All specime... 08/09/20 Blood Culture - Preliminary, Resulted No Growth after 72 hours. All specime... Discharge Medications Scheduled Apixaban (Eliquis) 5 Mg Tablet, 5 MG PO BID Ascorbic Acid (Vitamin C) 500 Mg Tab, 500 MG PO DAILY, (Reported) Atorvastatin Calcium (Atorvastatin Calcium) 10 Mg Tab, 10 MG PO DAILY, (Reported) Clindamycin Hcl (Clindamycin HCl) 150 Mg Capsule, 450 MG PO TID Ferrous Sulfate (Ferrous Sulfate) 325 Mg Tablet, 325 MG PO DAILY Folic Acid (Folic Acid) 1 Mg Tab, 1 MG PO DAILY, (Reported) Hydrochlorothiazide (Hydrochlorothiazide) 25 Mg Tab, 25 MG PO DAILY, (Reported) Levothyroxine Sodium (Levothyroxine Sodium) 125 Mcg Tablet, 125 MCG PO QAM, (Reported) Multivitamins (Thera M Plus Tablet) 1 Tab Tab, 1 TAB PO DAILY, (Reported) Zinc Sulfate (Zinc Sulfate) 220 Mg Cap, 220 MG PO DAILY, (Reported) Scheduled PRN Bisacodyl (Bisacodyl) 10 Mg Supp.rect, 10 MG [place] DAILYPRN PRN for CONSTIPATION Ciclopirox Olamine (Ciclopirox) 0.77 % Cre, 1 APLCT TOP PRN PRN for RASH, (Reported) APPLY UNDER BREASTS Sennosides/Docusate Sodium (Senna Plus Tablet) 1 Each Tablet, 1 TAB PO BID PRN for CONSTIPATION Allergies Coded Allergies: Sulfa (Sulfonamide Antibiotics) (Verified Allergy, Unknown, 01/19/19) betaine (Unverified Allergy, Unknown, FROM PRONTOSAN, 01/19/19) DALIA BARBA MD Aug 13, 2020 17:10
[2020-08-13] MEDS ORDERED: SENN-52 PO (17:26)
[2020-08-13] MEDS ORDERED: FERR325T18 PO (17:26)
[2020-08-13] MEDS ORDERED: CLIN150C14 PO (17:26)
[2020-08-13] MEDS ORDERED: ELIQ5TAB PO (17:26)
[2020-08-13] MEDS ORDERED: BISA10SU PR (17:26)
== END 2020-08-13 18:30 | disposition home or self-care (01) | DRG 871 ==
LOC: M ED 17:28 → M ED INP 22:11 → ENRESERV 22:56 → M MSPAV 23:36
PROVIDERS: ADMIT Internal Medicine; ATTEND Family Medicine
PROC: 30233N1 Transfusion of Nonautologous Red Blood Cells into Peripheral Vein, Percutaneous Approach (ICD-10-PCS; principal; 2020-08-11)
DX: A41.9 Sepsis, unspecified organism (principal); L89.153 Pressure ulcer of sacral region, stage 3; L03.116 Cellulitis of left lower limb; I82.412 Acute embolism and thrombosis of left femoral vein; G82.20 Paraplegia, unspecified; E87.6 Hypokalemia; D50.9 Iron deficiency anemia, unspecified; E03.9 Hypothyroidism, unspecified; Q05.9 Spina bifida, unspecified; Z79.899 Other long term (current) drug therapy; Z88.2 Allergy status to sulfonamides; Z88.8 Allergy status to other drugs, medicaments and biological substances

== ENCOUNTER 2024-08-31 15:45 | Inpatient (IN) | payer MEDICARE, MEDICAID ==
[~2024-08-31] VITALS: Ht 129.5 cm; Wt 62.5 kg
[~2024-08-31 15:45] MED LIST changes: +BISA10SU PR; +CLIN150C17 PO; +ELIQ5TAB PO; +HYDR-3490 PO; -HYDR25TAB PO; +LEVO125T4 PO; +SENN-52 PO
[2024-08-31 17:59] VITALS: BP 96/52; TEMP 98.6; O2SAT 96
[2024-08-31] MEDS ORDERED: MOM 30ML SUSPENSION UDC PO PRN (18:20)
[2024-08-31] MEDS ORDERED: ACETAMINOPHEN 325 MG TAB PO PRN (18:20)
[2024-08-31 18:58] LABS: BASO # 0.1 10^3/uL (0.0-0.2); BASO % 0.3 % (0.0-1.0); HEMATOCRIT 23.1 % (36.0-47.0); LYMPH # 1.5 10^3/uL (1.5-5.0); LYMPH % 5.7 % (24.0-44.0); MEAN CORPUSCULAR HEMOGLOBIN 21.7 pg (27.0-33.0); MEAN CORPUSCULAR VOLUME 74.8 fl (80.0-96.0); MONO % 3.6 % (2.0-8.0); NEUTROPHILS # 23.6 10^3/uL (1.5-8.5); NEUTROPHILS % 87.9 % (36.0-66.0); PLATELET COUNT, AUTOMATED 752 10^3/uL (150-450); RED BLOOD COUNT 3.09 10^6/uL (4.00-5.40); WHITE BLOOD COUNT 26.9 10^3/uL (4.0-10.0)
[2024-08-31 19:13] LABS: HEMOGLOBIN 6.7 g/dl (12.0-15.5)
[2024-08-31 19:22] LABS: ERYTHROCYTE SEDIMENTATION RATE 59 mm/hr (0-30)
[2024-08-31] MEDS ORDERED: DEXTROSE 50% 50ML SYRINGE IV PRN (19:25)
[2024-08-31] MEDS ORDERED: GLUCAGON INJ 1MG VIAL SC PRN (19:25)
[2024-08-31] MEDS ORDERED: GLUCOSE 4 GM CHEW PO PRN (19:25)
[2024-08-31 19:29] LABS: ALBUMIN 1.1 G/DL (3.2-5.2); ALKALINE PHOSPHATASE 130 U/L (35-104); ALT/SGPT 10 U/L (7.0-40); AST/SGOT 14 U/L (<34); BILIRUBIN,TOTAL 0.7 MG/DL (0.3-1.2); BLOOD UREA NITROGEN 9 MG/DL (9-23); CALCIUM LEVEL 7.9 MG/DL (8.5-10.1); CARBON DIOXIDE LEVEL 28 MMOL/L (20-31); CHLORIDE LEVEL 104 MMOL/L (98-107); CREATININE FOR GFR 0.34 MG/DL (0.55-1.30); GLOMERULAR FILTRATION RATE > 60.0 (>51); GLUCOSE, FASTING 87 MG/DL (60-100); POTASSIUM SERUM 3.2 MMOL/L (3.5-5.1); SODIUM LEVEL 138 MMOL/L (136-145); TOTAL PROTEIN 5.7 G/DL (5.7-8.2)
[2024-08-31 19:33] VITALS: BP 96/49; TEMP 97.7; O2SAT 93
[2024-08-31 19:40] LABS: PROCALCITONIN 1.53 ng/ml
[2024-08-31] MEDS: INSULIN LISPRO (NovoLOG) PER UNIT SC SCH (21:00)
[2024-08-31] MEDS ORDERED: POTA10CA70 PO (21:29)
[2024-08-31] MEDS ORDERED: SITA50TAB PO (21:29)
[2024-08-31] MEDS ORDERED: FERR1TAB8 PO (21:29)
[2024-08-31] MEDS ORDERED: ATOR40TA75 PO (21:29)
[2024-08-31] MEDS ORDERED: MULTTAB61 PO (21:29)
[2024-08-31] MEDS ORDERED: FARX1TAB3 PO (21:29)
[2024-08-31] MEDS ORDERED: HOME MED LIST COMPLETE! XX SCH (21:30)
[2024-08-31] MEDS: PIPERACILLIN/TAZOBACTAM SOD 3.375 GM in DEXTROSE 5% (D5W) ADV/MINI-BAG 50 ML IV SCH (22:22)
[2024-08-31] MEDS: VANCOMYCIN 1,250 MG/250 ML IV BAG *LOAD IV ONE (22:58)
[2024-08-31 23:18] VITALS: BP 117/56; TEMP 98.1; O2SAT 96
[2024-08-31 23:39] VITALS: BP 108/65; TEMP 97.9; O2SAT 98
[2024-09-01] VITALS (11 sets, daily range): BP systolic 99–125; BP diastolic 50–65; TEMP 97.5–98.6; O2SAT 91–100
[2024-09-01 06:15] LABS: HEMATOCRIT 28.5 % (36.0-47.0); HEMOGLOBIN 8.6 g/dl (12.0-15.5)
[2024-09-01] MEDS: VANCOMYCIN/WATER FOR INJ 1,000 MG in IV 1 EA IV SCH (06:29)
[2024-09-01] MEDS: LEVOTHYROXINE 125MCG TABLET (0.125MG) PO SCH (06:29)
[2024-09-01] MEDS: INSULIN LISPRO (NovoLOG) PER UNIT SC SCH (07:30)
[2024-09-01 08:19] LABS: BLOOD UREA NITROGEN 9 MG/DL (9-23); CALCIUM LEVEL 7.8 MG/DL (8.5-10.1); CARBON DIOXIDE LEVEL 26 MMOL/L (20-31); CHLORIDE LEVEL 103 MMOL/L (98-107); CREATININE FOR GFR 0.32 MG/DL (0.55-1.30); GLOMERULAR FILTRATION RATE > 60.0 (>51); GLUCOSE, FASTING 111 MG/DL (60-100); IRON (FE) 58 UG/DL (50-170); PERCENT SATURATION 37.2 % (13.2-45.0); POTASSIUM SERUM 3.1 MMOL/L (3.5-5.1); SODIUM LEVEL 137 MMOL/L (136-145); TOTAL IRON BINDING CAPACITY 156 UG/DL (250-425)
[2024-09-01 08:21] LABS: FERRITIN 258.2 NG/ML (7.3-270.7)
[2024-09-01 08:22] LABS: VITAMIN B12 LEVEL 1330 PG/ML (211-911)
[2024-09-01 08:34] LABS: HEMATOCRIT 28.7 % (36.0-47.0); HEMOGLOBIN 8.5 g/dl (12.0-15.5); MEAN CORPUSCULAR HEMOGLOBIN 22.4 pg (27.0-33.0); MEAN CORPUSCULAR HGB CONC 29.6 g/dl (32.0-36.5); MEAN CORPUSCULAR VOLUME 75.7 fl (80.0-96.0); PLATELET COUNT, AUTOMATED 656 10^3/uL (150-450); RED BLOOD COUNT 3.79 10^6/uL (4.00-5.40); WHITE BLOOD COUNT 17.8 10^3/uL (4.0-10.0)
[2024-09-01] MEDS: ZINC SULFATE 220 MG CAP PO SCH (10:03)
[2024-09-01] MEDS: ATORVASTATIN 20 MG TAB PO SCH (10:04)
[2024-09-01] MEDS: POTASSIUM CHLORIDE 10MEQ SR TABLET PO SCH (10:05)
[2024-09-01] MEDS: ASCORBIC ACID 500 MG TAB PO SCH (10:05)
[2024-09-01] MEDS: FERROUS SULFATE 325MG TAB PO SCH (10:05)
[2024-09-01] MEDS: FOLIC ACID 1MG TAB PO SCH (10:05)
[2024-09-01] MEDS: NS 1,000 ML IV SCH (12:51)
[2024-09-01] MEDS: POTASSIUM CHLORIDE 10% LIQ 20MEQ/15ML UDC PO SCH (12:51)
[2024-09-01 15:06] LABS: PERCENT SATURATION 5.4 % (13.2-45.0)
[2024-09-01 15:07] LABS: FERRITIN 332.3 NG/ML (7.3-270.7); FOLATE 9.91 NG/ML (>5.4)
[2024-09-01] MEDS: VANCOMYCIN 1,000MG/200 ML IV BAG IV SCH (15:39)
[2024-09-02 03:57] VITALS: BP 111/57; TEMP 98.1; O2SAT 96
[2024-09-02 04:45] LABS: HEMATOCRIT 26.6 % (36.0-47.0); HEMOGLOBIN 7.9 g/dl (12.0-15.5); MEAN CORPUSCULAR HGB CONC 29.7 g/dl (32.0-36.5); MEAN CORPUSCULAR VOLUME 77.6 fl (80.0-96.0); PLATELET COUNT, AUTOMATED 607 10^3/uL (150-450); RED BLOOD COUNT 3.43 10^6/uL (4.00-5.40); WHITE BLOOD COUNT 10.7 10^3/uL (4.0-10.0)
[2024-09-02 05:27] LABS: BLOOD UREA NITROGEN 11 MG/DL (9-23); CALCIUM LEVEL 7.5 MG/DL (8.5-10.1); CARBON DIOXIDE LEVEL 24 MMOL/L (20-31); CHLORIDE LEVEL 108 MMOL/L (98-107); CREATININE FOR GFR 0.35 MG/DL (0.55-1.30); GLOMERULAR FILTRATION RATE > 60.0 (>51); GLUCOSE, FASTING 102 MG/DL (60-100); POTASSIUM SERUM 4.1 MMOL/L (3.5-5.1); SODIUM LEVEL 139 MMOL/L (136-145)
[2024-09-02 08:29] LABS: HEMOGLOBIN A1c 5.4 % (4.0-6.0)
[2024-09-02] MEDS: POTASSIUM CHLORIDE 10MEQ SR TABLET PO SCH (08:46)
[2024-09-02] MEDS: IRON SUCROSE 100MG 5ML VIAL IV SCH (09:52)
[2024-09-02 12:00] VITALS: BP 108/58; TEMP 96.6; O2SAT 98
[2024-09-02 20:00] VITALS: BP 125/69; TEMP 98.1; O2SAT 98
[2024-09-03 03:20] VITALS: BP 112/64; TEMP 97.2; O2SAT 98
[2024-09-03 05:09] LABS: HEMATOCRIT 29.5 % (36.0-47.0); HEMOGLOBIN 8.5 g/dl (12.0-15.5); MEAN CORPUSCULAR HEMOGLOBIN 22.7 pg (27.0-33.0); MEAN CORPUSCULAR HGB CONC 28.8 g/dl (32.0-36.5); MEAN CORPUSCULAR VOLUME 78.7 fl (80.0-96.0); PLATELET COUNT, AUTOMATED 617 10^3/uL (150-450); RED BLOOD COUNT 3.75 10^6/uL (4.00-5.40)
[2024-09-03 05:43] LABS: BLOOD UREA NITROGEN 8 MG/DL (9-23); CALCIUM LEVEL 8.2 MG/DL (8.5-10.1); CARBON DIOXIDE LEVEL 24 MMOL/L (20-31); CHLORIDE LEVEL 109 MMOL/L (98-107); CREATININE FOR GFR 0.35 MG/DL (0.55-1.30); GLOMERULAR FILTRATION RATE > 60.0 (>51); GLUCOSE, FASTING 80 MG/DL (60-100); POTASSIUM SERUM 4.9 MMOL/L (3.5-5.1); SODIUM LEVEL 140 MMOL/L (136-145)
[2024-09-03 12:30] VITALS: BP 102/62; TEMP 97.5; O2SAT 99
[2024-09-03 20:00] VITALS: BP 114/68; TEMP 97.2; O2SAT 99
[2024-09-04 04:09] VITALS: BP 128/79; TEMP 97.2; O2SAT 99
[2024-09-04 06:47] LABS: HEMATOCRIT 29.9 % (36.0-47.0); HEMOGLOBIN 8.6 g/dl (12.0-15.5); MEAN CORPUSCULAR HEMOGLOBIN 22.6 pg (27.0-33.0); MEAN CORPUSCULAR HGB CONC 28.8 g/dl (32.0-36.5); MEAN CORPUSCULAR VOLUME 78.7 fl (80.0-96.0); PLATELET COUNT, AUTOMATED 592 10^3/uL (150-450); WHITE BLOOD COUNT 12.9 10^3/uL (4.0-10.0)
[2024-09-04 07:06] LABS: BLOOD UREA NITROGEN 7 MG/DL (9-23); CALCIUM LEVEL 8.2 MG/DL (8.5-10.1); CARBON DIOXIDE LEVEL 26 MMOL/L (20-31); CHLORIDE LEVEL 108 MMOL/L (98-107); CREATININE FOR GFR 0.37 MG/DL (0.55-1.30); GLOMERULAR FILTRATION RATE > 60.0 (>51); GLUCOSE, FASTING 81 MG/DL (60-100); POTASSIUM SERUM 4.8 MMOL/L (3.5-5.1); SODIUM LEVEL 141 MMOL/L (136-145)
[2024-09-04] MEDS: POTASSIUM CHLORIDE 10MEQ SR TABLET PO SCH (10:14)
[2024-09-04] MEDS: ENOXAPARIN 40MG/0.4ML SYRINGE (J1650 PER 10MG) SC SCH (10:15)
[2024-09-04 12:00] VITALS: BP 135/78; TEMP 97.5; O2SAT 100
[2024-09-04] MEDS: VANCOMYCIN 750MG/150 ML IV BAG IV SCH (15:13)
[2024-09-04 20:00] VITALS: BP 135/74; TEMP 97.7; O2SAT 97
[2024-09-04] MEDS: BOOSTRIX VACCINE (TETANUS/DIPHTH/ACEL. PERTUSSIS) 0.5ML SYR IM ONE (20:00)
[2024-09-04] MEDS: AUGMENTIN 875 MG TAB PO SCH (20:59)
[2024-09-04] MEDS: DOXYCYCLINE HYCLATE 100MG TABLET PO SCH (20:59)
[2024-09-05 04:00] VITALS: BP 119/73; TEMP 97.2; O2SAT 98
[2024-09-05 06:31] LABS: HEMOGLOBIN 8.5 g/dl (12.0-15.5); MEAN CORPUSCULAR HEMOGLOBIN 22.7 pg (27.0-33.0); MEAN CORPUSCULAR HGB CONC 28.3 g/dl (32.0-36.5); PLATELET COUNT, AUTOMATED 618 10^3/uL (150-450); RED BLOOD COUNT 3.75 10^6/uL (4.00-5.40); WHITE BLOOD COUNT 13.3 10^3/uL (4.0-10.0)
[2024-09-05 06:51] LABS: BLOOD UREA NITROGEN 8 MG/DL (9-23); CALCIUM LEVEL 8.3 MG/DL (8.5-10.1); CARBON DIOXIDE LEVEL 27 MMOL/L (20-31); CHLORIDE LEVEL 108 MMOL/L (98-107); CREATININE FOR GFR 0.35 MG/DL (0.55-1.30); GLOMERULAR FILTRATION RATE > 60.0 (>51); GLUCOSE, FASTING 111 MG/DL (60-100); POTASSIUM SERUM 4.6 MMOL/L (3.5-5.1); SODIUM LEVEL 141 MMOL/L (136-145)
[2024-09-05 12:00] VITALS: BP 122/74; TEMP 97.7; O2SAT 98
[2024-09-05 20:00] VITALS: BP 113/70; TEMP 97.5; O2SAT 98
[2024-09-06 04:00] VITALS: BP 106/63; TEMP 97; O2SAT 99
[2024-09-06 06:27] LABS: BASO # 0.1 10^3/uL (0.0-0.2); BASO % 0.4 % (0.0-1.0); EOS # 0.4 10^3/uL (0.0-0.5); EOS % 2.9 % (0.0-3.0); HEMATOCRIT 30.3 % (36.0-47.0); HEMOGLOBIN 8.5 g/dl (12.0-15.5); LYMPH % 22.7 % (24.0-44.0); MEAN CORPUSCULAR HEMOGLOBIN 23.1 pg (27.0-33.0); MEAN CORPUSCULAR HGB CONC 28.1 g/dl (32.0-36.5); MEAN CORPUSCULAR VOLUME 82.3 fl (80.0-96.0); MONO # 0.6 10^3/uL (0.0-0.8); MONO % 4.4 % (2.0-8.0); NEUTROPHILS # 8.6 10^3/uL (1.5-8.5); NEUTROPHILS % 65.6 % (36.0-66.0); PLATELET COUNT, AUTOMATED 604 10^3/uL (150-450); RED BLOOD COUNT 3.68 10^6/uL (4.00-5.40)
[2024-09-06 06:56] LABS: BLOOD UREA NITROGEN 12 MG/DL (9-23); CALCIUM LEVEL 8.8 MG/DL (8.5-10.1); CARBON DIOXIDE LEVEL 28 MMOL/L (20-31); CHLORIDE LEVEL 104 MMOL/L (98-107); GLOMERULAR FILTRATION RATE > 60.0 (>51); GLUCOSE, FASTING 95 MG/DL (60-100); POTASSIUM SERUM 4.5 MMOL/L (3.5-5.1); SODIUM LEVEL 138 MMOL/L (136-145)
[2024-09-06] MEDS ORDERED: AMOX875T2 PO (11:00)
[2024-09-06] MEDS ORDERED: DOXY100T PO (11:00)
[2024-09-06 12:00] VITALS: BP 108/66; TEMP 97.5; O2SAT 100
== END 2024-09-06 13:41 | disposition home or self-care (01) | DRG 853 ==
LOC: M MSPAV 18:00
PROVIDERS: ADMIT Internal Medicine Nephrology; ATTEND Hospitalist
PROC: 0JBP0ZZ Excision of Left Lower Leg Subcutaneous Tissue and Fascia, Open Approach (ICD-10-PCS; principal; 2024-08-31)
DX: A41.9 Sepsis, unspecified organism (principal); L89.154 Pressure ulcer of sacral region, stage 4; L03.116 Cellulitis of left lower limb; G82.20 Paraplegia, unspecified; L97.329 Non-pressure chronic ulcer of left ankle with unspecified severity; M86.68 Other chronic osteomyelitis, other site; E03.9 Hypothyroidism, unspecified; I10 Essential (primary) hypertension; E78.5 Hyperlipidemia, unspecified; E11.42 Type 2 diabetes mellitus with diabetic polyneuropathy; E11.622 Type 2 diabetes mellitus with other skin ulcer; Q05.9 Spina bifida, unspecified; E11.69 Type 2 diabetes mellitus with other specified complication; D50.9 Iron deficiency anemia, unspecified; D63.8 Anemia in other chronic diseases classified elsewhere; Z99.3 Dependence on wheelchair; Z88.2 Allergy status to sulfonamides; Z88.8 Allergy status to other drugs, medicaments and biological substances; Z79.899 Other long term (current) drug therapy; I87.8 Other specified disorders of veins; Z89.511 Acquired absence of right leg below knee; E87.6 Hypokalemia; B96.20 Unspecified Escherichia coli [E. coli] as the cause of diseases classified elsewhere; B95.62 Methicillin resistant Staphylococcus aureus infection as the cause of diseases classified elsewhere; B96.4 Proteus (mirabilis) (morganii) as the cause of diseases classified elsewhere

== ENCOUNTER → 2024-09-22 | Outpatient (REF) | payer MEDICARE, MEDICAID ==
[~2024-09-22] MED LIST changes: +ATOR40TA75 PO; +DOXY100T PO; +FARX1TAB3 PO; +MULTTAB61 PO; +POTA10CA70 PO; +SITA50TAB PO
== END ==
LOC: M SFHCWOUN 18:03
PROVIDERS: ATTEND Physician Assistant
DX: L89.224 Pressure ulcer of left hip, stage 4 (principal); M86.151 Other acute osteomyelitis, right femur

== ENCOUNTER 2024-12-18 12:48 | Outpatient (RCR) | payer MEDICARE, MEDICAID | END 2025-01-15 | LOC: M PT 12:48 | PROVIDERS: ATTEND Physician Assistant | DX: E11.622 Type 2 diabetes mellitus with other skin ulcer (principal) ==

== ENCOUNTER 2025-07-24 10:32 | Inpatient (IN) | payer MEDICARE, MEDICAID ==
[~2025-07-24] VITALS: Ht 137.2 cm; Wt 62.8 kg
[2025-07-24] VITALS (28 sets, daily range): BP systolic 74–113; BP diastolic 42–65; TEMP 96.7–100.4; O2SAT 94–99
[2025-07-24 11:50] LABS: BASO # 0.0 10^3/uL (0.0-0.2); BASO % 0.1 % (0.0-1.0); EOS # 0.0 10^3/uL (0.0-0.5); EOS % 0.1 % (0.0-3.0); LYMPH # 1.1 10^3/uL (1.5-5.0); LYMPH % 4.9 % (24.0-44.0); MONO # 0.9 10^3/uL (0.0-0.8); MONO % 4.0 % (2.0-8.0); NEUTROPHILS # 19.2 10^3/uL (1.5-8.5); NEUTROPHILS % 89.6 % (36.0-66.0); PLATELET COUNT, AUTOMATED 518 10^3/uL (150-450)
[2025-07-24 11:57] LABS: ERYTHROCYTE SEDIMENTATION RATE 81 mm/hr (0-30)
[2025-07-24 12:51] LABS: ALT/SGPT 11 U/L (7.0-40); AST/SGOT 18 U/L (<34); CALCIUM LEVEL 7.6 MG/DL (8.5-10.1); CARBON DIOXIDE LEVEL 26 MMOL/L (20-31); CHLORIDE LEVEL 96 MMOL/L (98-107); CREATININE FOR GFR 0.53 MG/DL (0.55-1.30); GLOMERULAR FILTRATION RATE > 90.0 (>51); POTASSIUM SERUM 3.5 MMOL/L (3.5-5.1); SODIUM LEVEL 133 MMOL/L (136-145)
[2025-07-24 12:55] LABS: C REACTIVE PROTEIN QUANTITATIV 23.15 MG/DL (<1.0)
[2025-07-24] MEDS: cefTRIAXone SOD 1 GM in DEXTROSE 5% (D5W) ADV/MINI-BAG 50 ML IV ONE (12:57)
[2025-07-24] MEDS: NS (Normal Saline) 0.9% 1,000 ML IV SCH ×2 (12:57→20:18)
[2025-07-24] MEDS ORDERED: HOME MED LIST COMPLETE! XX SCH (13:45)
[2025-07-24] MEDS ORDERED: PANT40TA29 PO (13:45)
[2025-07-24] MEDS ORDERED: ISOVUE-370 76% 100 ML VIAL As Ordered ONE (13:47)
[2025-07-24] MEDS: VANCOMYCIN HCL 1,250 MG, VIAL MATE ADAPTER 1 EACH in NS 250 ML IV ONE (13:48)
[2025-07-24] MEDS: NS 0.9% IV ONE (13:49)
[2025-07-24] MEDS: [UNRECOGNIZED DRUG - OTHER] IV ONE (13:49)
[2025-07-24] MEDS: ACETAMINOPHEN 325 MG TAB PO ONE (17:22)
[2025-07-24] MEDS: PIPERACILLIN/TAZOBACTAM SOD 3.375 GM in DEXTROSE 5% (D5W) ADV/MINI-BAG 50 ML IV ONE (19:16)
[2025-07-24] MEDS ORDERED: GLUCOSE 4 GM CHEW PO PRN (19:35)
[2025-07-24] MEDS ORDERED: DEXTROSE 50% 50 ML SYRINGE IV PRN (19:35)
[2025-07-24] MEDS ORDERED: GLUCAGON INJ 1 MG VIAL SC PRN (19:35)
[2025-07-24 20:15] LABS: CORTISOL AM 31.2 UG/DL (4.3-22.4)
[2025-07-24] MEDS: NOREPINEPHRINE 4MG IN D5 250ML 4 MG in IV 1 EA IV SCH (21:25)
[2025-07-24] MEDS: CLINDAMYCIN 600 MG in IV 1 EA IV SCH (21:26)
[2025-07-24] MEDS: PANTOPRAZOLE 40MG VIAL IV ONE (21:26)
[2025-07-25] VITALS (72 sets, daily range): BP systolic 88–129; BP diastolic 51–83; TEMP 97–97.8; O2SAT 90–100
[2025-07-25] MEDS: VANCOMYCIN HCL 1,000 MG, VIAL MATE ADAPTER 1 EACH in NS 250 ML IV SCH (00:02)
[2025-07-25] MEDS: PIPERACILLIN/TAZOBACTAM SOD 3.375 GM in DEXTROSE 5% (D5W) ADV/MINI-BAG 50 ML IV SCH (03:20)
[2025-07-25 05:49] LABS: BASO # 0.1 10^3/uL (0.0-0.2); BASO % 0.3 % (0.0-1.0); EOS # 0.1 10^3/uL (0.0-0.5); EOS % 0.3 % (0.0-3.0); LYMPH # 2.5 10^3/uL (1.5-5.0); LYMPH % 8.2 % (24.0-44.0); MONO # 1.0 10^3/uL (0.0-0.8); MONO % 3.3 % (2.0-8.0); NEUTROPHILS # 26.0 10^3/uL (1.5-8.5); NEUTROPHILS % 85.7 % (36.0-66.0); PLATELET COUNT, AUTOMATED 661 10^3/uL (150-450)
[2025-07-25 06:28] LABS: ALT/SGPT 9 U/L (7.0-40); AST/SGOT 16 U/L (<34); CALCIUM LEVEL 7.2 MG/DL (8.5-10.1); CARBON DIOXIDE LEVEL 22 MMOL/L (20-31); CHLORIDE LEVEL 104 MMOL/L (98-107); CREATININE FOR GFR 0.44 MG/DL (0.55-1.30); GLOMERULAR FILTRATION RATE > 90.0 (>51); MAGNESIUM LEVEL 1.8 MG/DL (1.8-2.4); PHOSPHORUS LEVEL 3.8 MG/DL (2.5-4.9); POTASSIUM SERUM 3.1 MMOL/L (3.5-5.1); SODIUM LEVEL 138 MMOL/L (136-145)
[2025-07-25] MEDS: MIDODRINE 5 MG TAB PO SCH (08:21)
[2025-07-25] MEDS: POTASSIUM CHLORIDE 10% LIQ 20MEQ/15ML UDC PO SCH (08:22)
[2025-07-25] MEDS: ENOXAPARIN 40 MG/0.4 ML SYRINGE (J1650 PER 10MG) SC SCH (08:23)
[2025-07-25] MEDS: INSULIN LISPRO (NovoLOG) PER UNIT SC SCH (08:49)
[2025-07-25] MEDS ORDERED: POTASSIUM CHLORIDE 10MEQ SR TABLET PO SCH (09:00)
[2025-07-25 11:01] LABS: APPEARANCE, URINE HAZY (CLEAR); BACTERIA, URINE AUTO NEGATIVE (NEGATIVE); BILIRUBIN, URINE AUTO NEGATIVE (NEGATIVE); BLOOD, URINE BLOOD 2+ (NEGATIVE); GLUCOSE, URINE (UA) AUTO 3+ mg/dL (NEGATIVE); KETONE, URINE AUTO NEGATIVE (NEGATIVE); LEUKOCYTE ESTERASE, URINE AUTO NEGATIVE (NEGATIVE); MUCUS, URINE SMALL (NEGATIVE); NITRITE, URINE AUTO NEGATIVE (NEGATIVE); PROTEIN, URINE AUTO NEGATIVE (NEGATIVE); RBC, URINE AUTO 3 /HPF (0-3); SPECIFIC GRAVITY URINE AUTO 1.015 (1.002-1.035); SQUAMOUS EPITHELIAL CELL UR AU 5 /HPF (0-6); UROBILINOGEN, URINE AUTO 2.0 mg/dL (0.0-2.0); WBC, URINE AUTO 6 /HPF (0-3)
[2025-07-25] MEDS: LEVOTHYROXINE 125 MCG TABLET (0.125 MG) PO SCH (11:28)
[2025-07-25] MEDS: CLINDAMYCIN 900 MG in IV 1 EA IV SCH (13:17)
[2025-07-25] MEDS: VANCOMYCIN HCL 500 MG in DEXTROSE 5% (D5W) MINI-BAG PLU 100 ML IV SCH (20:00)
[2025-07-25] MEDS: PANTOPRAZOLE 40MG VIAL IV SCH (21:32)
[2025-07-26] VITALS (45 sets, daily range): BP systolic 84–127; BP diastolic 50–96; TEMP 97.2–99; O2SAT 96–100
[2025-07-26] MEDS ORDERED: ACETAMINOPHEN 325 MG TAB PO PRN (04:30)
[2025-07-26 07:33] LABS: BASO # 0.0 10^3/uL (0.0-0.2); BASO % 0.3 % (0.0-1.0); EOS # 0.3 10^3/uL (0.0-0.5); EOS % 2.0 % (0.0-3.0); LYMPH # 1.6 10^3/uL (1.5-5.0); LYMPH % 11.8 % (24.0-44.0); MONO # 0.5 10^3/uL (0.0-0.8); MONO % 4.0 % (2.0-8.0); NEUTROPHILS # 10.5 10^3/uL (1.5-8.5); NEUTROPHILS % 80.2 % (36.0-66.0); PLATELET COUNT, AUTOMATED 318 10^3/uL (150-450)
[2025-07-26 07:43] LABS: VANCOMYCIN LEVEL TROUGH 16.0 UG/ML (10.0-20.0)
[2025-07-26 07:46] LABS: ALT/SGPT 10 U/L (7.0-40); AST/SGOT 17 U/L (<34); CALCIUM LEVEL 6.7 MG/DL (8.5-10.1); CARBON DIOXIDE LEVEL 22 MMOL/L (20-31); CHLORIDE LEVEL 108 MMOL/L (98-107); CREATININE FOR GFR 0.40 MG/DL (0.55-1.30); GLOMERULAR FILTRATION RATE > 90.0 (>51); MAGNESIUM LEVEL 1.5 MG/DL (1.8-2.4); PHOSPHORUS LEVEL 3.0 MG/DL (2.5-4.9); POTASSIUM SERUM 3.6 MMOL/L (3.5-5.1); SODIUM LEVEL 142 MMOL/L (136-145)
[2025-07-26] MEDS: MIRALAX *UNIT DOSE* 17 GM PACKET PO SCH (08:11)
[2025-07-26] MEDS: POTASSIUM CHLORIDE 10MEQ SR TABLET PO ONE (08:12)
[2025-07-26] MEDS: FOLIC ACID 1 MG TAB PO SCH (09:00)
[2025-07-26] MEDS: ATORVASTATIN 20 MG TAB PO SCH (09:00)
[2025-07-26] MEDS: MAG SULF 1GM/100ML (MAG RUN) 1 GM in IV 1 EA IV SCH (09:16)
[2025-07-26 12:39] LABS: BASO # 0.1 10^3/uL (0.0-0.2); BASO % 0.4 % (0.0-1.0); EOS # 0.3 10^3/uL (0.0-0.5); EOS % 2.0 % (0.0-3.0); LYMPH # 1.7 10^3/uL (1.5-5.0); LYMPH % 12.2 % (24.0-44.0); MONO # 0.6 10^3/uL (0.0-0.8); MONO % 4.0 % (2.0-8.0); NEUTROPHILS # 11.1 10^3/uL (1.5-8.5); NEUTROPHILS % 79.8 % (36.0-66.0); PLATELET COUNT, AUTOMATED 393 10^3/uL (150-450)
[2025-07-26] MEDS ORDERED: MIDAZOLAM INJ 2 MG/2 ML VIAL As Ordered ONE (16:16)
[2025-07-26] MEDS ORDERED: ONDANSETRON 4MG 2ML VIAL As Ordered ONE (16:17)
[2025-07-26] MEDS ORDERED: ROCURONIUM BROMIDE 50MG/5ML VIAL As Ordered ONE (16:17)
[2025-07-26] MEDS ORDERED: LIDOCAINE 2% 100 MG/5 ML SDV (FOR ANES.) As Ordered ONE (16:17)
[2025-07-26] MEDS ORDERED: ETOMIDATE 20 MG/10 ML VIAL As Ordered ONE (16:19)
[2025-07-26] MEDS ORDERED: dexAMETHasone 4 MG/ML 1 ML VIAL As Ordered ONE (16:43)
[2025-07-26] MEDS ORDERED: ACETAMINOPHEN 1000MG/100ML IV BAG As Ordered ONE (17:12)
[2025-07-26] MEDS ORDERED: SUGAMMADEX SODIUM 500 MG/5 ML VIAL As Ordered ONE (17:13)
[2025-07-26] MEDS ORDERED: ONDANSETRON 4MG 2ML VIAL IV PRN (17:30)
[2025-07-26] MEDS ORDERED: HYDROMORPHONE HCL 0.5 MG/0.5 ML SYRINGE IV PRN (17:30)
[2025-07-27] VITALS (13 sets, daily range): BP systolic 89–102; BP diastolic 51–63; TEMP 96.9–97.7; O2SAT 97–100
[2025-07-27 07:34] LABS: PLATELET COUNT, AUTOMATED 373 10^3/uL (150-450)
[2025-07-27 15:52] LABS: CALCIUM LEVEL 7.3 MG/DL (8.5-10.1); CARBON DIOXIDE LEVEL 21 MMOL/L (20-31); CHLORIDE LEVEL 107 MMOL/L (98-107); CREATININE FOR GFR 0.40 MG/DL (0.55-1.30); GLOMERULAR FILTRATION RATE > 90.0 (>51); MAGNESIUM LEVEL 1.9 MG/DL (1.8-2.4); POTASSIUM SERUM 4.1 MMOL/L (3.5-5.1); SODIUM LEVEL 138 MMOL/L (136-145)
[2025-07-28] VITALS (7 sets, daily range): BP systolic 100–117; BP diastolic 55–67; TEMP 97.3–98.1; O2SAT 97–99
[2025-07-28 06:11] LABS: PLATELET COUNT, AUTOMATED 399 10^3/uL (150-450)
[2025-07-28 06:32] LABS: CALCIUM LEVEL 7.2 MG/DL (8.5-10.1); CARBON DIOXIDE LEVEL 22 MMOL/L (20-31); CHLORIDE LEVEL 111 MMOL/L (98-107); CREATININE FOR GFR 0.37 MG/DL (0.55-1.30); GLOMERULAR FILTRATION RATE > 90.0 (>51); POTASSIUM SERUM 4.4 MMOL/L (3.5-5.1); SODIUM LEVEL 142 MMOL/L (136-145)
[2025-07-28] MEDS: PANTOPRAZOLE 40MG TAB PO SCH (10:16)
[2025-07-29] VITALS (7 sets, daily range): BP systolic 115–125; BP diastolic 66–72; TEMP 96.8–99.6; O2SAT 96–100
[2025-07-29 05:46] LABS: PLATELET COUNT, AUTOMATED 428 10^3/uL (150-450)
[2025-07-29 06:12] LABS: CALCIUM LEVEL 7.1 MG/DL (8.5-10.1); CARBON DIOXIDE LEVEL 22 MMOL/L (20-31); CHLORIDE LEVEL 109 MMOL/L (98-107); CREATININE FOR GFR 0.53 MG/DL (0.55-1.30); GLOMERULAR FILTRATION RATE > 90.0 (>51); POTASSIUM SERUM 4.4 MMOL/L (3.5-5.1); SODIUM LEVEL 140 MMOL/L (136-145)
[2025-07-30 06:00] VITALS: BP 117/67; TEMP 99.6; O2SAT 99
[2025-07-30 06:31] LABS: PLATELET COUNT, AUTOMATED 422 10^3/uL (150-450)
[2025-07-30 06:54] LABS: CALCIUM LEVEL 7.3 MG/DL (8.5-10.1); CARBON DIOXIDE LEVEL 24 MMOL/L (20-31); CHLORIDE LEVEL 109 MMOL/L (98-107); CREATININE FOR GFR 0.42 MG/DL (0.55-1.30); GLOMERULAR FILTRATION RATE > 90.0 (>51); POTASSIUM SERUM 4.4 MMOL/L (3.5-5.1); SODIUM LEVEL 140 MMOL/L (136-145)
[2025-07-30 08:15] VITALS: BP 126/73
[2025-07-30 14:00] VITALS: BP 122/77; TEMP 97.5; O2SAT 97
[2025-07-30 14:07] LABS: C REACTIVE PROTEIN QUANTITATIV 4.05 MG/DL (<1.0)
[2025-07-30 20:18] VITALS: BP 121/65; TEMP 97.4; O2SAT 99
[2025-07-31 04:30] VITALS: BP 120/68; TEMP 96.2; O2SAT 98
[2025-07-31 08:28] LABS: PLATELET COUNT, AUTOMATED 385 10^3/uL (150-450)
[2025-07-31 08:53] LABS: C REACTIVE PROTEIN QUANTITATIV 4.10 MG/DL (<1.0); CALCIUM LEVEL 7.4 MG/DL (8.5-10.1); CARBON DIOXIDE LEVEL 22 MMOL/L (20-31); CHLORIDE LEVEL 108 MMOL/L (98-107); CREATININE FOR GFR 0.43 MG/DL (0.55-1.30); GLOMERULAR FILTRATION RATE > 90.0 (>51); POTASSIUM SERUM 3.9 MMOL/L (3.5-5.1); SODIUM LEVEL 141 MMOL/L (136-145)
[2025-07-31 13:00] VITALS: BP 123/72; O2SAT 97
[2025-07-31 14:00] VITALS: BP 125/66; TEMP 97.5
[2025-07-31 15:50] VITALS: BP 117/67
[2025-07-31 19:39] VITALS: BP 128/64; TEMP 97.5; O2SAT 99
[2025-07-31] MEDS: cefTRIAXone SOD 2 GM in DEXTROSE 5% (D5W) ADV/MINI-BAG 50 ML IV SCH (20:32)
[2025-08-01 06:23] LABS: PLATELET COUNT, AUTOMATED 457 10^3/uL (150-450)
[2025-08-01 06:43] VITALS: BP 124/66; TEMP 96.6; O2SAT 99
[2025-08-01 06:45] LABS: CALCIUM LEVEL 7.6 MG/DL (8.5-10.1); CARBON DIOXIDE LEVEL 24 MMOL/L (20-31); CHLORIDE LEVEL 110 MMOL/L (98-107); CREATININE FOR GFR 0.43 MG/DL (0.55-1.30); GLOMERULAR FILTRATION RATE > 90.0 (>51); POTASSIUM SERUM 3.9 MMOL/L (3.5-5.1); SODIUM LEVEL 144 MMOL/L (136-145)
[2025-08-01 14:00] VITALS: BP 117/67; TEMP 97.6; O2SAT 97
[2025-08-01 20:02] VITALS: BP 134/76; TEMP 98.7; O2SAT 97
[2025-08-02 05:46] VITALS: BP 131/71; TEMP 97.2; O2SAT 98
[2025-08-02 06:07] LABS: PLATELET COUNT, AUTOMATED 473 10^3/uL (150-450)
[2025-08-02 06:37] LABS: CALCIUM LEVEL 7.7 MG/DL (8.5-10.1); CARBON DIOXIDE LEVEL 25 MMOL/L (20-31); CHLORIDE LEVEL 109 MMOL/L (98-107); CREATININE FOR GFR 0.38 MG/DL (0.55-1.30); GLOMERULAR FILTRATION RATE > 90.0 (>51); POTASSIUM SERUM 3.8 MMOL/L (3.5-5.1); SODIUM LEVEL 143 MMOL/L (136-145)
[2025-08-02 11:48] VITALS: BP 142/78
[2025-08-02] MEDS ORDERED: CEFP200T PO (12:55)
== END 2025-08-02 15:30 | disposition home health service (06) | DRG 853 ==
LOC: M ED 10:32 → EEVIPCON 19:17 → M ED INP 19:17 → M ICU 20:18 → M MS5PR 07-28 16:35
PROVIDERS: ADMIT Internal Medicine; ATTEND Student in an Organized Health Care Education/Training Program
PROC: 0YBN0ZZ Excision of Left Foot, Open Approach (ICD-10-PCS; 2025-07-26)
PROC: 0QB10ZZ Excision of Sacrum, Open Approach (ICD-10-PCS; 2025-07-26)
PROC: 0QD70ZZ Extraction of Left Upper Femur, Open Approach (ICD-10-PCS; principal; 2025-07-26 07:30)
DX: A40.9 Streptococcal sepsis, unspecified (principal); K68.12 Psoas muscle abscess; R65.21 Severe sepsis with septic shock; L89.154 Pressure ulcer of sacral region, stage 4; L89.204 Pressure ulcer of unspecified hip, stage 4; G82.20 Paraplegia, unspecified; M00.252 Other streptococcal arthritis, left hip; M86.252 Subacute osteomyelitis, left femur; E11.42 Type 2 diabetes mellitus with diabetic polyneuropathy; L08.9 Local infection of the skin and subcutaneous tissue, unspecified; I10 Essential (primary) hypertension; E03.9 Hypothyroidism, unspecified; E78.5 Hyperlipidemia, unspecified; Q05.9 Spina bifida, unspecified; E11.621 Type 2 diabetes mellitus with foot ulcer; E11.69 Type 2 diabetes mellitus with other specified complication; K21.9 Gastro-esophageal reflux disease without esophagitis; Z99.3 Dependence on wheelchair; D50.9 Iron deficiency anemia, unspecified; Z79.899 Other long term (current) drug therapy; Z79.890 Hormone replacement therapy; Z88.2 Allergy status to sulfonamides; Z88.8 Allergy status to other drugs, medicaments and biological substances; Z89.611 Acquired absence of right leg above knee